=== PATIENT | male | born 1960 | race Caucasian/White ===

== ENCOUNTER 2023-03-20 02:17 | Outpatient (CLI) | payer OTHER, SELFPAY ==
--- NOTE | 2023-03-20 09:30 | DI.RAD_ITS ---
Exam(s) XR KNEE RT 4V AP,LAT,ARMANDO,PAT EXAM: XR KNEE RT 4V AP,LAT,ARMANDO,PAT CLINICAL HISTORY: ENCOUNTER FOR DISABILITY DETERMINATION, Z02.71; RT KNEE PAIN. TECHNIQUE: 2D digital imaging was performed. COMPARISON: No exams were available for comparison FINDINGS: Four views: There is a lateral fixation plate along the proximal tibia as well as 2 additional lateral to medial screws in the tibial plateau. No hardware loosening and no radiographic evidence of osteomyelitis. No significant loss of height of the tibial plateau evident. There is significant narrowing of the medial compartment of the right knee, almost [id number] as se en on the weight-bearing view. Lesser degenerative changes evident in the lateral compartment. IMPRESSION: Orthopedic hardware. Degenerative changes in the knee joint, most evident in the medial compartment. DATA REPOSITORY: RADIATION DOSE DELIVERED:
== END 2023-03-20 02:37 ==
PROVIDERS: Visit Provider Pediatrics Pediatric Rheumatology
DX: Z02.71 Encounter for disability determination (principal); Z96.651 Presence of right artificial knee joint; M17.11 Unilateral primary osteoarthritis, right knee
CPT/HCPCS: 73564

== ENCOUNTER 2023-10-17 11:03 | Emergency (ER) | payer MEDICARE, SELFPAY ==
[2023-10-17] VITALS (103 sets, daily range): BP systolic 99–195; BP diastolic 42–133; PULSE 64–106; RESP 0–37; TEMP 35.9; O2SAT 69–100
--- NOTE | 2023-10-17 11:00 | RT.EKG_ITS ---
APPROVED REPORT Exam: Resting ECG Reason for Exam: shortness of breath Patient Location: E HR:98 bpm ECG Measurements Heart Rate 98 AXIS NV 134 P 71 QRSd 87 QRS 66 QT 342 T -42 QTc 439 Conclusion Sinus rhythm...normal P axis, V-rate 60- 99 Probable left atrial enlargement...P >50mS, <-0.10mV V1 Low voltage, precordial leads...precordial leads <1.0mV Consider anteroseptal infarct...Q >30mS, dimin R, V1-V2
--- NOTE | 2023-10-17 11:19 | ED.GENADUL_ITS ---
HPI General Mode of arrival: EMS . Date/Time Provider Initiated Documentation: 10/17/23 11:08 . Information obtained by: patient and EMS . History of Present Illness 63 year old M presents to the emergency department with the chief complaint of shortness of breath, described as moderate, Patient started experiencing this day(s) (2) and it has been constant. No relieving factors improve symptom(s), No exacerbating factors reported . Patient notes denies fever/chills. Patient did receive the following treatments prior to arrival, none Related Data Home Medications Medication Instructions Recorded Confirmed acetaminophen 325 mg tablet 325 mg PO Q4H PRN 06/11/23 10/17/23 ibuprofen 200 mg tablet 200 mg PO Q6H PRN 06/11/23 10/17/23 Allergies Allergy/AdvReac Type Severity Reaction Status Date / Time No Known Allergies Allergy Verified 10/17/23 11:07 General Stated Complaint: GenMedical DOMINICK: 2 Review of Systems All systems reviewed & are unremarkable except as noted in HPI and below Constitutional Constitutional: Denies chills and Denies fever(s) Cardiovascular Cardiovascular: Denies chest pain and Reports dyspnea Respiratory Respiratory: Denies cough and Reports dyspnea Gastrointestinal Gastrointestinal: Denies abdominal pain, Denies nausea and Denies vomiting Musculoskeletal Musculoskeletal: Denies joint swelling Exam Const Orientation: alert HENMT Head: normal to inspection Ears: external ears normal General nose exam: external nose normal Mouth: moist mucous membranes Eyes General: appearance normal, both eyes and all related structures Neck Neck: normal visual inspection Resp Auscultation: wheezes Cardio Rate: regular rate Heart Sounds: no murmurs GI Palpation: nontender Skin General skin exam: no rashes or lesions noted Neuro General: patient alert Extrem General: capillary refill normal Course Vital Signs Vital signs: Vital Signs Temperature 35.9 C L 10/17/23 11:08 Pulse 97 H 10/17/23 11:08 Respiratory Rate 25 H 10/17/23 11:08 Blood Pressure 165/113 H 10/17/23 11:08 Temperature 35.9 C L 10/17/23 11:08 Temperature Source Temporal Artery Scan 10/17/23 11:08 Pulse 97 H 10/17/23 11:08 Respiratory Rate 25 H 10/17/23 11:08 Blood Pressure 165/113 H 10/17/23 11:08 Blood Pressure Position Sitting 10/17/23 11:08 Oxygen Delivery Method Non-Rebreather 10/17/23 11:08 Pain Level 0 10/17/23 11:08 Lab/Test Results Lab/Test Results: 10/17/23 11:01 Blood Blood Culture - Pending 10/17/23 11:01 Blood Blood Culture - Pending Medical Decision Making 63 yo male with no chronic medical problems though he doesn't see a provider routinely, is a smoker, who comes in with ems with shortness of breath. He apparently hasn't been moving around his house well the last few months and has stayed in his bed. EMS was called today and when they arrived they said his house was unkempt, and he was having severe respiratory distress. He was noted to be in the 70's on room air. They placed in on cpap and brought him here. Pt is only able to answer 1 word sentences though does state he feels improved with the cpap. He has pitting edema of both legs, wheezing diffusely in both lung nielsen. He denies chest pain. Suspect he has multiple untreated chronic medical problems and could be having both a copd and chf exacerbation. Will obtain ekg/troponin, cbc, cmp, fluvid, portable chest xray and give duoneb, solumedrol and 20mg iv lasix and reassess. Unclear how his renal function is, if it is adequate and no clear cause for his symptoms on the xray will consider cta of his chest. pt is feeling improved, speaking in 4-5 word sentences. HE does state he has felt weak and short of breath with exertion the last few months which has limited his mobility. HE used to smoke tobacco and currently smokes marijuana, does drink daily as well. labs show elevated probnp and minimally elevated troponin consistent with chf, xray shows large left pleural effusion and possible mass radiology recommends ct, will proceed with cta of the chest and ct abdomen/pelvis to evaluate for pe, mass, and potential ascites. pt trialed off cpap on high flow, maintained oxygen saturations above 90% but his respriratory rate did start increasing so was placed on bipap. CTA shows bilateral effusions and right lower lobe infiltrate, can't exclude PE per Dr. Chua. abd/pelvis ct shows evidence of anasarca with asictes, noted gas in the bladder with staghorn calculus and air, concern for infection vs air introduced from the bolden. Discussed case with Dr. Saunders who requests urology consult to determine if any acute interventions for the air/staghorn calculus is needed. Will hold anticoagulation until it is determined he needs an acute procedure Differential Diagnosis Differential Diagnosis: chf, copd, pneumonia Imaging Data Radiologic Study: Attestation: I personally reviewed and interpreted this imaging study as follows: Imaging: X-Ray Radiologist's impression: left pleural effusion, possible lung mass Radiologic Study #2: Attestation: I personally reviewed and interpreted this imaging study as follows: Imaging: CT Scan Radiologist's impression: Patient Name: Samuel Delacruz Unit #: [id number] Loc: ER Ordering Provider: Gus Baron M.D. Status: PRE ER Primary Care Provider: Unknown,Unknown Date of Exam: 10/17/23 Sex: M : 1960 Age: 63 Exam(s) a CT:CT chest PE abd & pelvis w Exam(s) CT CHEST PE ABD PELVIS W EXAM: CT CHEST PE ABD PELVIS W CLINICAL HISTORY: dyspnea, ?lung mass, ?ascites. TECHNIQUE: Imaging Protocol: Axial CT angiography was performed with multi- slice acquisition and multi-planar and/or 3D reconstructions. CONTRAST MATERIAL: Intravenous: Omnipaque 350 Contrast volume:100 ml Oral: None COMPARISON: CR XR PORTABLE CHEST AP from 10/17/2023 FINDINGS: CHEST: PULMONARY ARTERIES: There are no intra-arterial filling defects in the left lung to suggest the presence of acute pulmonary emboli. In the opposite-right lung there is a partially occlusive filling defect in the right lower lobe pulmonary artery consistent with embolus. LUNGS: There are prominent bilateral pleural effusions, left larger than right appearing partially loculated. There is significant volume loss in both lungs lower lobes. There is ground-glass infiltrate throughout the remaining aerated left upper lobe. Aerated right upper lobe and right middle lobe a relatively unremarkable but there is some infiltrate in the remaining on collapse part of the right lower lobe.. There are no pleural effusions. MEDIASTINUM: There is no hilar nor mediastinal adenopathy. Visualized thyroid unremarkable. CARDIAC: There is cardiomegaly. No pericardial effusion.Ventricular ratio is 1/1 and there is some reflux of contrast into the intrahepatic IVC and intrahepatic veins. Diameter of the thoracic aorta is normal. No obvious dissection. OSSEOUS: No rib fractures evident. No lytic lesions nor fractures in the vertebral bodies.. ABDOMEN: There is anasarca left side more than right side. There is also a moderate amount of ascites in the abdomen and pelvis. LIVER: Appears somewhat cirrhotic. Some fatty change. No discrete focal this. No dilated intrahepatic ducts. GALLBLADDER/BILIARY: Some fluid noted around the gallbladder although this may be early the ascites more so than intrinsic acute gallbladder pathology. CBD is not dilated. PANCREAS: No evidence of pancreatic mass nor dilatation of the pancreatic duct. SPLEEN: Spleen is not enlarged. There are no intrasplenic lesions. Splenic and portal veins are patent. ADRENALS: There are no significant adrenal masses. KIDNEYS:Right kidney unremarkable. There is gas in the left kidney the in the region of the calices. Also dense these in the left kidneys which are probably part of staghorn calculus staghorn calculus. There is no gas in urine. There the lateral cortex of the left kidney measuring 4 x 3 cm. This are no calculi nor hydronephrosis. No solid renal masses. ABDOMINAL AORTA: Calcified but not enlarged. LYMPH NODES: There is no retroperitoneal or para-aortic adenopathy. ABDOMINAL WALL/GI: No evidence of significant anterior abdominal wall hernia. No bowel obstruction. PELVIS: LYMPH NODES: There is no intrapelvic nor inguinal adenopathy. GI: No evidence of appendicitis.No evidence of sigmoid diverticulitis. URINARY BLADDER: There is a Bolden catheter in the urinary bladder and the bladder is collapsed around this Bolden. Some gas in the bladder noted. REPRODUCTIVE: Prostate gland is not enlarged. OSSEOUS: Pagetoid appearance of the left parveen pelvic bones. IMPRESSION: 1. Large bilateral pleural effusions, left larger than right with subjacent lung volume loss. Left upper lobe ground-glass infiltrate in the remaining aerated non collapsed left lung. 2. Infiltrate noted in the right lower lobe. 3. Subtle suggestion of pulmonary embolus in a right lower lobe vessel, nono cclusive. No pulmonary emboli evident in the left lung. 4. Anasarca and significant moderate-large amount of ascites in the abdomen and pelvis. 5. Densities in the left kidney collecting system probably represent part of staghorn calculus. There is also gas in the kidney around these findings. This may be related to infection versus gas introduced by the Bolden insertion into the urinary bladder. 6. Right kidney unremarkable. 7. Somewhat cirrhotic appearing liver. No splenomegaly. 8. 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 Lab Data Lab results reviewed: Yes I reviewed the patient's lab results. ECG Data Attestation: I personally reviewed and interpreted this ECG (s) as follows: Prior ECG tracings: not available for review Interpretation: sinus rate of 98 pr 134 no stemi Quality:SDOH Health Related Social Needs: No Data to Display PFSH All Active Problems (Updated 10/17/23 @ 15:56 by Gus Baron MD) Anasarca (Acute) Acute hypoxemic respiratory failure (Acute) Pleural effusion (Acute) Elevated LFTs (Acute) Medical History Anemia Squamous cell skin cancer ETOH abuse Surgical History (Updated 06/11/23 @ 16:02 by Ivett Rich RN) Status post open reduction and internal fixation (ORIF) of fracture Lower leg Right wrist Social History (Updated 05/24/23 @ 10:48 by Radha Nair) Smoking/Tobacco Use Status: Current, status unknown Smoking risk assessment performed?: Yes Alcohol Intake: current Substance use type: marijuana Adopted: No Caregiver/Support person: No Foster care: No Housing: other Details: room in home Communication Needs: None Pets and animals: No Discharge Plan Disposition Condition: Poor Discharge Details Chief Complaint: GenMedical Clinical Impression: Elevated LFTs, Pleural effusion, Acute hypoxemic respiratory failure, Anasarca Primary Care Provider: Unknown,Unknown ED Provider: Gus Baron Home Meds and New Rx's Prescriptions: No Action acetaminophen 325 mg tablet 325 mg PO Q4H PRN ibuprofen 200 mg tablet 200 mg PO Q6H PRN
[2023-10-17 11:34] LABS: Abs Immature Grans 0.15 10^3/uL (0.0-0.06); Absolute Basophil Count 0.06 10^3/uL (0.0-0.2); Absolute Lymphocyte Count 1.23 10^3/uL (1.2-3.4); Absolute Monocyte Count 1.18 10^3/uL (0.1-0.8); BE (Venous) -3 mmol/L (-2-3); Basophils % 0.5; HCO3 (Venous) 25 mmol/L (23-28); HCT 47.6 % (40.0-50.0); HGB 13.8 g/dL (13.5-17.5); Immature Grans % 1.3; MCH 23.7 pg (27.0-33.0); MCV 82 fL (80-95); MPV 9.1 fL (8.0-11.0); Monocytes % 10.5; Neutrophils % 76.7; Nucleated RBC 1.1 % (0.0-0.3); O2 Sat (Venous) 30 %; Platelet Count 384 10^3/uL (130-400); RBC 5.82 10^6/uL (4.36-5.78); RDW 19.9 % (11.8-14.1); TCO2 (Venous) 25 mmol/L (24-29); pO2 (Venous) 26 mmHg
[2023-10-17 11:35] LABS: Absolute Neutrophil Count 8.59 10^3/uL (1.2-6.7)
[2023-10-17 11:36] LABS: pCO2 (Venous) 70 mmHg (41-51); pH (Venous) 7.17 (7.31-7.41)
[2023-10-17] MEDS: Albuterol/Ipratropium 3 ML UPD VIAL UPD ×2 (11:43)
[2023-10-17] MEDS: Furosemide 20 MG/2 ML VIAL IVP ×3 (11:44→17:51)
[2023-10-17] MEDS: methylPREDNISolone SUCC 125 MG VIAL IVP (11:44)
--- NOTE | 2023-10-17 11:45 | DI.RAD_ITS ---
Exam(s) XR PORTABLE CHEST AP EXAM: XR PORTABLE CHEST AP CLINICAL HISTORY: shortness of breath. TECHNIQUE: 2D digital imaging was performed. COMPARISON: No exams were available for comparison FINDINGS: Single AP portable view. Heart size upper normal There is almost complete opacification left hemithorax. Probably related to large pleural effusion, infiltrate. There is a suggestion of a mass in the left suprahilar region IMPRESSION: Large left pleural effusion with possible mass. Chest CT scan recommended DATA REPOSITORY: RADIATION DOSE DELIVERED:
[2023-10-17 11:48] LABS: PTT Activated 27.5 sec (23.6-32.8); Prothrombin Time 14.1 sec (9.1-11.1)
[2023-10-17 11:53] LABS: INR 1.4 (0.9-1.1)
[2023-10-17 12:00] LABS: ETHANOL BLOOD < 3.0 mg/dL (<10)
[2023-10-17 12:01] LABS: Troponin I 66 ng/L (< or =60)
[2023-10-17 12:05] LABS: ALT 417 U/L (16-63); Alkaline Phosphatase 217 U/L (46-116); Anion Gap 10.9 mmol/L (3-11); BUN 33 mg/dL (7-18); Bilirubin, Total 1.3 mg/dL (0.2-1.0); CO2 25.1 mmol/L (21.0-32.0); CREATININE 1.7 mg/dL (0.70-1.30); Calcium 8.6 mg/dL (8.5-10.1); Chloride 102 mmol/L (98-107); Estimated GFR 44.74 (mL/min/1.73m2); Glucose 103 mg/dL (74-106); Magnesium 2.3 mg/dL (1.8-2.4); Potassium 5.4 mmol/L (3.5-5.1); Sodium 138 mmol/L (136-145); Total Protein 9.2 g/dL (6.4-8.2)
[2023-10-17 12:11] LABS: Procalcitonin 0.2 ng/mL
[2023-10-17 12:15] LABS: COVID-19 PCR Negative (Negative); Influenza A PCR Negative (Negative); Influenza B PCR Negative (Negative); RSV PCR Negative (Negative)
[2023-10-17 12:17] LABS: Source Nasopharynx
[2023-10-17 12:31] LABS: AST 990 U/L (15-37)
[2023-10-17] MEDS: Omnipaque 350 MG/ML 100 ML BTL IJ (14:11)
[2023-10-17] MEDS: Normal Saline - Diluent 50 ML VIAL IJ (14:13)
[2023-10-17 14:14] LABS: Troponin I 58 ng/L (< or =60)
--- NOTE | 2023-10-17 14:25 | DI.CT_ITS ---
Exam(s) CT CHEST PE ABD PELVIS W EXAM: CT CHEST PE ABD PELVIS W CLINICAL HISTORY: dyspnea, ?lung mass, ?ascites. TECHNIQUE: Imaging Protocol: Axial CT angiography was performed with multi-slice acquisition and m ulti-planar and/or 3D reconstructions. CONTRAST MATERIAL: Intravenous: Omnipaque 350 Contrast volume:100 ml Oral: None COMPARISON: CR XR PORTABLE CHEST AP from 10/17/2023 FINDINGS: CHEST: PULMONARY ARTERIES: There are no intra-arterial filling defects in the left lung to suggest the prese nce of acute pulmonary emboli. In the opposite-right lung there is a partially occlusive filling defect in the right lower lobe pulm onary artery consistent with embolus. LUNGS: There are prominent bilateral pleural effusions, left larger than right appearing partially lo culated. There is significant volume loss in both lungs lower lobes. There is ground-glass infiltra te throughout the remaining aerated left upper lobe. Aerated right upper lobe and right middle lobe a relatively unremarkable but there is some infiltrate in the remaining on collapse part of the right lower lobe.. There are no pleural effusions. MEDIASTINUM: There is no hilar nor mediastinal adenopathy. Visualized thyroid unremarkable. CARDIAC: There is cardiomegaly. No pericardial effusion.Ventricular ratio is 1/1 and there is some r eflux of contrast into the intrahepatic IVC and intrahepatic veins. Diameter of the thoracic aorta i s normal. No obvious dissection. OSSEOUS: No rib fractures evident. No lytic lesions nor fractures in the vertebral bodies.. ABDOMEN: There is anasarca left side more than right side. There is also a moderate amount of ascites in the abdomen and pelvis. LIVER: Appears somewhat cirrhotic. Some fatty change. No discrete focal this. No dilated intrahepa tic ducts. GALLBLADDER/BILIARY: Some fluid noted around the gallbladder although this may be early the ascites m ore so than intrinsic acute gallbladder pathology. CBD is not dilated. PANCREAS: No evidence of pancreatic mass nor dilatation of the pancreatic duct. SPLEEN: Spleen is not enlarged. There are no intrasplenic lesions. Splenic and portal veins are torrez nt. ADRENALS: There are no significant adrenal masses. KIDNEYS:Right kidney unremarkable. There is gas in the left kidney the in the region of the calices. Also dense these in the left kidneys which are probably part of staghorn calculus staghorn calculus . There is no gas in urine. There the lateral cortex of the left kidney measuring 4 x 3 cm. This a re no calculi nor hydronephrosis. No solid renal masses. ABDOMINAL AORTA: Calcified but not enlarged. LYMPH NODES: There is no retroperitoneal or para-aortic adenopathy. ABDOMINAL WALL/GI: No evidence of significant anterior abdominal wall hernia. No bowel obstruction. PELVIS: LYMPH NODES: There is no intrapelvic nor inguinal adenopathy. GI: No evidence of appendicitis.No evidence of sigmoid diverticulitis. URINARY BLADDER: There is a Power catheter in the urinary bladder and the bladder is collapsed around this Power. Some gas in the bladder noted. REPRODUCTIVE: Prostate gland is not enlarged. OSSEOUS: Pagetoid appearance of the left parveen pelvic bones. IMPRESSION: 1. Large bilateral pleural effusions, left larger than right with subjacent lung volume loss. Left u pper lobe ground-glass infiltrate in the remaining aerated non collapsed left lung. 2. Infiltrate noted in the right lower lobe. 3. Subtle suggestion of pulmonary embolus in a right lower lobe vessel, nonocclusive. No pulmonary e mboli evident in the left lung. 4. Anasarca and significant moderate-large amount of ascites in the abdomen and pelvis. 5. Densities in the left kidney collecting system probably represent part of staghorn calculus. Ther e is also gas in the kidney around these findings. This may be related to infection versus gas intro duced by the Power insertion into the urinary bladder. 6. Right kidney unremarkable. 7. Somewhat cirrhotic appearing liver. No splenomegaly. 8. 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 Called by myself to ER physician. RADIATION DOSE DELIVERED: 2,585.46mGy.cm Total DLP DATA REPOSITORY: All CT scans at this facility are submitted to the National Radiology Data Registry (NRDR) Dose Index Registry (DIR) with the [employer] (A[employer]). RADIATION OPTIMIZATION: All CT scans at this facility use at least one of these dose optimization te chniques: automated exposure control; mA and/or kV adjustment per patient size (includes targeted exa ms where dose is matched to clinical indication); or iterative reconstruction.
[2023-10-17] MEDS: AZITHROMYCIN 500 MG in Normal Saline 250 ML 250 MG IVPB (15:45)
[2023-10-17 16:03] LABS: Bilirubin Negative (Negative); Blood Moderate (Negative); Clarity Cloudy (Clear); Glucose Negative (Negative); Ketones Negative (Negative); Leukocyte Esterase Moderate (Negative); Nitrite Negative (Negative); Urobilinogen 0.2 mg/dL (Up to 0.2)
[2023-10-17 16:15] LABS: Acetaminophen < 2 ug/mL (10-30)
[2023-10-17 16:18] LABS: Bacteria Many HPF (Negative); Crystals Negative HPF (Negative); Epithelial Cells Rare HPF (Negative); Mucus Moderate (Negative); Other Cells Rare Transitional (Negative); RBC 20-50 HPF (0-2); WBC 20-50 HPF (0-5)
[2023-10-17 16:19] LABS: C & S Indicated? Yes; Casts 0-2 Hyaline LPF (Negative)
--- NOTE | 2023-10-17 16:45 | ED.PROG_ITS ---
Date of service: 10/17/23 Time of Service: 16:45 Medical Decision Making I received signout on this 63-year-old male found to have anasarca and acute respiratory failure with hypoxia and bilateral pleural effusions concerning for acute CHF. He was also found to have a staghorn calculus and some associated gas in the right kidney concerning for the possibility of infection versus gas introduced by Power. Urinalysis positive for leuk esterase and bacteriuria but nitrite negative. He will require hospitalization as he is on rescue BiPAP. Hospitalist has requested that we [place] [facility] [place] speak with [place] as we do not currently have urology coverage. Question is will patient require urological intervention and as result transfer. Power catheter was placed. Patient had received methylprednisolone and nebulized ipratropium albuterol. 5:30 PM I spoke with Dr. Calderon from the hospitalist team at [facility] who agreed to accept the patient for hospitalization. We are also on the phone with Dr. David from urology who did not feel that the patient required emergent urological procedures. Also on the call was Dr. Crews from critical care. Repeated blood gas which showed that his pH was 7.18 and pCO2 was 68. He is pulling good tidal volumes. At bedside with respiratory therapist we increased his IPAP to 20 and his EPAP remained at 6. He is down to 35% FiO2. I placed on a CIWA protocol. He was mildly hyperkalemic for which I treated him with calcium gluconate. Will treat with 20 mg more IV furosemide. Will repeat a blood gas at 6:30 PM. Will wait for bed placement to call prior to arranging product safety head level transfer. Breaker Off advised holding off on anticoagulation given possible need for procedures moving forward. Urology agreed that the patient did not require any acute urological intervention. Patient has an 18- gauge in his right AC. Will obtain a second line. His second venous gas showed persistent acidemia with pH of 7.18. pCO2 only slightly improved at 68 mmHg. 8:25 PM Late charting due to patient care. After the patient was accepted to [facility] [place], product safety head with [facility], came to transport the patient. Patient now has 2 IVs. He was not comfortable transfer the patient as an ambulance as he was concerned that he was fairly BiPAP and would require emergent intubation. Patient is certainly in a precarious position. On the one hand he is pulling good tidal volumes and response to stimuli and answers with his name. He is certainly would not be easy to intubate or maintain on the ventilator. I also have concerns about his ability to be easily extubated. I had the patient's nurse Kyle stand at bedside. We engaged with the patient and he had his eyes open was responding to questions and continue to pull good tidal volumes. I repeated the venous blood gas and his hypercarbia and acidemia were both improving. He has been accepted by [facility] helicopter as unfortunately there is not a product safety head crew to take him. Will sign patient out at bedside to the [facility] team. 9:30 PM As patient was being transitioned over to monitors with the [facility] team he had an apneic episode. The [facility] team increased his FiO2 to 100% which caused him to become acutely agitated and confused. His eyes were open. He was intermitten tly able to follow commands. Critical care team did not feel comfortable taking the patient in the helicopter given his current state. Critical care team did not feel comfortable giving the patient lorazepam for agitation or ketamine and preferred instead to intubate the patient. In conjunction with medic Dom Chang from the [facility] team patient was intubated. Dom Chang performed the intubation however I was at his shoulder during the entire procedure. A timeout was completed prior to RSI which was accomplished on a single first-pass success using glide scope following etomidate and rocuronium given concern for mild hyperkalemia. Patient was started on a propofol drip. An OG tube was placed and the chest x-ray along with end-tidal confirmed tube placement. Respiratory therapist was at bedside. I updated the hospitalist at [facility] concerning the patient's intubated status. Patient received 4 mg of ondansetron prior to transfer. 10:38 PM ET tube read as in satisfactory position on preliminary portable chest x-ray read. [ ] Quality:SDOH Health Related Social Needs: No Data to Display Procedures Intubation Time out performed: Yes sedative: Etomidate Mg Given: 40 paralytic: Rocuronium Mg Given: 150 Laryngoscope: fiberoptic video scope (glide scope) ET Tube Size: 7.5 ET Tube Uncuffed: No Tube Secured Depth (cm): 23 Tube Secured Location: teeth Tube Placement Confirmation: visualized tube passing through cords, equal breath sounds bilaterally and confirmation by capnometry Patient Tolerated Procedure: well and no complications Intubation Complications: none Additional Comments: Intubation accomplished by critical care medic from [facility]. I was there through the entire procedure at the head of the bed supervising this intubation. Tube & OGT confirmed by CXR. Critical Care Time Critical Care Time Critical Care Time: Yes Total Critical Care Time: 45 Attestation: Bedside assessment, evaluation of labs, and speaking with consultants Sign Out Sign Out Data: Sign Out Comment: presented with acute hypoxic respiratory failure and diffuse edema, cta chest with bilateral pleural effusions and right lower lobe infiltrate, ?PE in the right lower lobe. ct abd/pelvis with left staghorn calculus and air, has put out over 600cc urine since 40mg IV lasix. Attempted admission here but Dr. Saunders requested at least a urology consult to determine if acute intervention required for the left staghorn calculus with air. Last updated by Gus Baron MD at 10/17/23 16:41 Discharge Plan Disposition Patient Disposition: Transfer-Acute Inpatient Care Specific Acute Inpt Facility: [facility] Discharge Details Clinical Impression: Elevated LFTs, Pleural effusion, Acute hypoxemic respiratory failure, Anasarca Primary Care Provider: Unknown,Unknown ED Provider: Altaf Barreto Home Meds and New Rx's Prescriptions: No Action acetaminophen 325 mg tablet 325 mg PO Q4H PRN ibuprofen 200 mg tablet 200 mg PO Q6H PRN Discharge Data Discharge Date/Time-TO BE ENTERED AT DEPARTURE: 10/17/23 21:50
[2023-10-17] MEDS: cefTRIAXone 2 GM/50 ML BAG IVPB (16:56)
[2023-10-17 17:28] LABS: BE (Venous) -3 mmol/L (-2-3); HCO3 (Venous) 25 mmol/L (23-28); O2 Sat (Venous) 38 %; TCO2 (Venous) 25 mmol/L (24-29); pO2 (Venous) 30 mmHg
[2023-10-17 17:30] LABS: pH (Venous) 7.18 (7.31-7.41)
[2023-10-17 17:31] LABS: pCO2 (Venous) 68 mmHg (41-51)
[2023-10-17 17:51] LABS: Anion Gap 8.6 mmol/L (3-11); BUN 36 mg/dL (7-18); CO2 27.4 mmol/L (21.0-32.0); CREATININE 1.8 mg/dL (0.70-1.30); Calcium 8.2 mg/dL (8.5-10.1); Chloride 103 mmol/L (98-107); Estimated GFR 41.77 (mL/min/1.73m2); Glucose 128 mg/dL (74-106); Potassium 5.3 mmol/L (3.5-5.1); Sodium 139 mmol/L (136-145)
[2023-10-17] MEDS: Calcium Gluconate 4.65 MEQ/10 ML VIAL 9.3 MG IVP (17:51)
[2023-10-17 18:08] LABS: BE (Venous) -1 mmol/L (-2-3); HCO3 (Venous) 27 mmol/L (23-28); O2 Sat (Venous) 26 %; TCO2 (Venous) 27 mmol/L (24-29); pO2 (Venous) 24 mmHg
[2023-10-17 18:10] LABS: pCO2 (Venous) 72 mmHg (41-51); pH (Venous) 7.19 (7.31-7.41)
[2023-10-17 19:37] LABS: BE (Venous) 0 mmol/L (-2-3); HCO3 (Venous) 28 mmol/L (23-28); O2 Sat (Venous) 24 %; TCO2 (Venous) 27 mmol/L (24-29); pH (Venous) 7.24 (7.31-7.41); pO2 (Venous) 22 mmHg
[2023-10-17 19:38] LABS: pCO2 (Venous) 65 mmHg (41-51)
--- NOTE | 2023-10-17 21:15 | DI.RAD_ITS ---
Exam(s) XR PORTABLE CHEST AP EXAM: XR PORTABLE CHEST AP CLINICAL HISTORY: Confirm tube. TECHNIQUE: 2D digital imaging was performed. COMPARISON: CT CT CHEST PE ABD PELVIS W from 10/17/2023 CR XR PORTABLE CHEST AP from 10/17/2023 FINDINGS: Single AP portable view. Patient is now intubated. ET tube is in satisfactory position. NG tube is noted but distal aspect o f the NG tube is beyond the field of view of this portable chest x-ray. Heart size unchanged. Some shift of midline structures towards the left side noted due to left-sided lung volume loss. Large left pleural effusion is again noted with partial left lung collapse. Smal ler right pleural effusion noted. No improvement from earlier same date. IMPRESSION: ET tube in satisfactory position. No improvement in the appearance of the lung nielsen. DATA REPOSITORY: RADIATION DOSE DELIVERED:
[2023-10-17] MEDS: Ondansetron 4 MG/2 ML VIAL (21:58)
--- NOTE | 2023-10-17 22:02 | DI.VRAD_ITS ---
PROCEDURE INFORMATION: Exam: XR Chest Exam date and time: 10/17/2023 9:38 PM Age: 63 years old Clinical indication: Other: Confirm tube TECHNIQUE: Imaging protocol: Radiologic exam of the chest. Views: 1 view. COMPARISON: CT CHEST PE ABD PELVIS W 10/17/2023 2:10 PM FINDINGS: Tubes, catheters and devices: ET tube is in satisfactory position. Tip of the feeding tube is beyond the [id number]. The side hole of the feeding tube is in the distal esophagus. Lungs: There are bilateral pleural effusions with lower lobe consolidation/collapse, larger on the left side. Pleural spaces: See Lungs finding. Heart/Mediastinum: Shift of the mediastinum to the left consistent with volume loss. Bones/joints: Degenerative disease of the thoracic spine with curvature convex to the right. IMPRESSION: 1. ET tube is in satisfactory position. 2. Tip of the feeding tube is beyond the field of view. The side hole of the feeding tube is in the distal esophagus. 3. Bilateral pleural effusions with lower lobe atelectasis. Dictated and Authenticated by: Francisco Armstrong MD. Ordering:ÁNGEL Solitario MD
== END 2023-10-17 21:50 | disposition short-term general hospital (02) ==
PROVIDERS: Emergency Medicine; Emergency Provider Emergency Medicine
DX: J96.01 Acute respiratory failure with hypoxia (principal); J90 Pleural effusion, not elsewhere classified; R60.1 Generalized edema; E87.5 Hyperkalemia; R94.5 Abnormal results of liver function studies; N20.0 Calculus of kidney; Z11.52 Encounter for screening for COVID-19
CPT/HCPCS: 00123; 31500; 36415; 51702; 71275; 74177; 80048; 80053; 82805; 84145; 87040; 87077; 87637; 93005; 96365; 96368; 96375; 96376; 99291; 71045; 80320; 80329; 81003; 81015; 83735; 83880; 84443; 84484; 85025; 85610; 85730; 87086; 87186; 93010; J0456; J0612; J0696; J1941; J2405; J2930; J3490; J7620

== ENCOUNTER 2024-04-13 16:47 | Inpatient (IN) | payer MEDICARE, SELFPAY ==
[2024-04-13] VITALS (77 sets, daily range): BP systolic 74–158; BP diastolic 34–120; PULSE 80–157; RESP 15–36; TEMP 36.8; O2SAT 93–100
--- NOTE | 2024-04-13 16:45 | RT.EKG_ITS ---
APPROVED REPORT Exam: Resting ECG Reason for Exam: tachycardia Patient Location: E HR:127 bpm ECG Measurements Heart Rate 127 AXIS UT 108 P 153 QRSd 81 QRS 33 QT 273 T 147 QTc 397 Conclusion Sinus tachycardia with irregular rate...V-rate 119-170, variation>10% Low voltage, precordial leads...precordial leads <1.0mV Abnormal T, consider ischemia, lateral leads...T <-0.20mV, I aVL V5 V6 sinus tachycardia, normal axis, normal intervals, non ischemic
[2024-04-13 17:19] LABS: BE (Venous) -6 mmol/L (-2-3); HCO3 (Venous) 21 mmol/L (23-28); O2 Sat (Venous) 40 %; TCO2 (Venous) 19 mmol/L (24-29); pCO2 (Venous) 44 mmHg (41-51); pH (Venous) 7.29 (7.31-7.41); pO2 (Venous) 29 mmHg
[2024-04-13 17:23] LABS: Abs Immature Grans 0.05 10^3/uL (0.0-0.06); Absolute Basophil Count 0.06 10^3/uL (0.0-0.2); Absolute Eosinophil Count 0.03 10^3/uL (0.0-0.7); Absolute Lymphocyte Count 1.59 10^3/uL (1.2-3.4); Absolute Neutrophil Count 6.38 10^3/uL (1.2-6.7); Basophils % 0.7 %; Eosinophils % 0.3 %; HCT 48.8 % (40.0-50.0); HGB 15.1 g/dL (13.5-17.5); Immature Grans % 0.6 %; Lactate 3.6 mmol/L (0.6-1.4); Lymphocytes % 17.8 %; MCH 30.4 pg (27.0-33.0); MCHC 30.9 % (32.0-36.0); MCV 98 fL (80-95); MPV 8.9 fL (8.0-11.0); Neutrophils % 71.6 %; Nucleated RBC 0.6 % (0.0-0.3); Platelet Count 312 10^3/uL (130-400); RBC 4.97 10^6/uL (4.36-5.78); RDW 16.8 % (11.8-14.1); RDW-SD 58.2 fL; WBC 8.91 10^3/uL (4.4-10.8)
--- NOTE | 2024-04-13 17:30 | DI.RAD_ITS ---
Exam(s) XR PORTABLE CHEST AP EXAM: XR PORTABLE CHEST AP CLINICAL HISTORY: dyspnea. TECHNIQUE: 2D digital imaging was performed. COMPARISON: CR XR PORTABLE CHEST AP from 10/17/2023 CR,XR XR PORTABLE CHEST AP from 10/17/[address] CHEST/ABD/PEL WO from 04/13/2024 FINDINGS: Single AP portable view. Patient is rotated towards the left. Cardiomegaly again noted. Mediastinum unchanged. Moderate-size left pleural effusion is again noted. The size of this left pleural effusion is slight ly smaller than 10/17/2023. There is also some infiltrate in left lower lobe. Mild increased markin gs noted in the right lung base. No obvious right pleural effusion. No fractures. No pneumothorax. IMPRESSION: Cardiomegaly. Persistent or recurrent left pleural effusion. This has slightly decreased in size fr om 10/17/2023 but still is of significant size. Cannot exclude loculation of this left pleural effus ion. Some infiltrate also noted in left lower lobe. DATA REPOSITORY: RADIATION DOSE DELIVERED:
[2024-04-13 17:33] LABS: INR 1.5 (0.9-1.1); Prothrombin Time 14.3 sec (9.1-11.1)
[2024-04-13] MEDS: PIPERACILLIN/TAZO 3.375 GM in Normal Saline 50 ML IVPB (17:42)
[2024-04-13] MEDS: methylPREDNISolone SUCC 125 MG VIAL 80 MG IVP (17:44)
[2024-04-13] MEDS: Albuterol/Ipratropium 3 ML UPD VIAL (17:44)
[2024-04-13] MEDS: Albuterol 2.5 MG/3 ML INH SOLN VIAL UPD (17:44)
[2024-04-13 17:45] LABS: ALT 29 U/L (16-63); AST 42 U/L (15-37); Albumin 3.2 g/dL (3.4-5.0); Alkaline Phosphatase 184 U/L (46-116); Anion Gap 14.7 mmol/L (3-11); BUN 34 mg/dL (7-18); Bilirubin, Total 1.41 mg/dL (0.2-1.0); CO2 22.3 mmol/L (21.0-32.0); CREATININE 2.1 mg/dL (0.70-1.30); Calcium 8.4 mg/dL (8.5-10.1); Chloride 103 mmol/L (98-107); ETHANOL BLOOD 3.2 mg/dL (<10); Glucose 135 mg/dL (74-106); Lipase 20 U/L (16-77); NT-proBNP 21381 pg/mL (<300); Potassium 4.6 mmol/L (3.5-5.1); Sodium 140 mmol/L (136-145); Total Protein 8.3 g/dL (6.4-8.2); Troponin I < 50 ng/L (< or =60)
--- NOTE | 2024-04-13 17:45 | DI.CT_ITS ---
Exam(s) CT CHEST/ABD/PEL WO EXAM: CT CHEST/ABD/PEL WO CLINICAL HISTORY: dyspnea, groin pain/edema, cirrhosis. TECHNIQUE: Imaging Protocol: Axial computed tomography images with coronal and sagittal reformatted images were created and reviewed CONTRAST MATERIAL: Intravenous: Noncontrast Oral: no COMPARISON: CT CT CHEST PE ABD PELVIS W from 10/17/2023 FINDINGS: CHEST: Tracheobronchial tree: Patent. Pulmonary parenchyma: No dominant measurable mass. Dependent changes, left greater than right. On persistent ground-glass infiltrate left upper and left lower lobes. Pleura: Small right pleural effusion. Moderate left pleural effusion. Effusions are small when com pared with the previous exam. No pneumothorax. Mediastinum: Within normal limits. Aorta: Thoracic portion non-dilated. Pulmonary arteries: No visible emboli. Heart: Marked dilatation. No pericardial effusion. Coronary artery calcifications. Bones: Scoliosis and degenerative changes. No lytic or blastic lesions.No compression fractures. Thacker bacute fracture right 9th rib. Soft tissues: Body wall edema, improved from prior. ABDOMEN and PELVIS: Liver: Cirrhotic appearance. No measurable mass. Gallbladder and biliary tract: No evidence of stones or wall thickening. No biliary dilatation. Pancreas: Mild atrophy. No abnormal calcifications or inflammatory process. Spleen: Normal. Kidneys: Staghorn calculus on the left air again noted within left renal collecting system. No hydro nephrosis. No ureteral calculi. Appearance unchanged from prior. Mild left renal scarring. Stable cyst upper pole. No suspicious masses seen. Adrenal glands: No masses seen. Aorta: Abdominal portion non-dilated. Atherosclerotic changes. Lymph nodes: Within normal limits. Soft tissues: Marked subcutaneous edema, greater on the left. Portion of the left lateral abdominal wall is not included in field of view. Bladder: Power catheter decompresses bladder. Bowel: No obstruction or bowel wall thickening. Diverticulosis. No gross evidence of diverticuliti s cos somewhat difficult to evaluate due to ascites. Appendix partially obscured by ascites. No tenzin dence of appendicitis. Peritoneal cavity: Large amount of ascites, greater in the region of the pelvis which appears increas ed from prior exam. No focal abscess collection. No mesenteric inflammatory response. No free air. Bones: Scoliosis and degenerative changes. Changes of Paget's disease of the left hemipelvis. Reproductive organs: Within normal limits. IMPRESSION: Mild decreased size of bilateral pleural effusions. Persistent left lower lobe atelectasis and groun d-glass infiltrates. Marked cardiomegaly. Stable appearance of left kidney with multiple nonobstructing stones and air within the collecting sy stem. Large amount of ascites, somewhat increased from prior. Body wall edema again noted. Cirrhotic appearing liver. RADIATION DOSE DELIVERED: Total DLP DATA REPOSITORY: All CT scans at this facility are submitted to the National Radiology Data Registry (NRDR) Dose Index Registry (DIR) with the [employer] (A[employer]). RADIATION OPTIMIZATION: All CT scans at this facility use at least one of these dose optimization te chniques: automated exposure control; mA and/or kV adjustment per patient size (includes targeted exa ms where dose is matched to clinical indication); or iterative reconstruction.
[2024-04-13] MEDS: Furosemide 40 MG/4 ML VIAL IVP ×2 (17:52→19:27)
[2024-04-13 18:01] LABS: COVID-19 PCR Negative (Negative); Influenza A PCR Negative (Negative); Influenza B PCR Negative (Negative); RSV PCR Negative (Negative)
[2024-04-13 18:15] LABS: Source Nasopharynx
[2024-04-13 19:16] LABS: Bilirubin Negative (Negative); Blood Moderate (Negative); Clarity Cloudy (Clear); Glucose Negative (Negative); Ketones Negative (Negative); Leukocyte Esterase Moderate (Negative); Nitrite Negative (Negative); Urobilinogen 0.2 mg/dL (Up to 0.2); pH 5.5 (5-8)
[2024-04-13 19:24] LABS: Bacteria Many HPF (Negative); C & S Indicated? Yes; Casts Negative LPF (Negative); Crystals Negative HPF (Negative); Epithelial Cells Negative HPF (Negative); Mucus Negative (Negative); Other Cells Rare Renal (Negative); WBC >50 HPF (0-5)
--- NOTE | 2024-04-13 19:25 | DI.VRAD_ITS ---
PROCEDURE INFORMATION: Exam: XR Chest Exam date and time: 04/13/2024 5:43 PM Age: 64 years old Clinical indication: Shortness of breath TECHNIQUE: Imaging protocol: Radiologic exam of the chest. Views: 1 view. COMPARISON: XR PORTABLE CHEST AP 10/17/2023 9:38 PM FINDINGS: Lungs: No evidence of consolidation in the visualized lung. Pleural spaces: There is redemonstration of a left pleural effusion, which is at least moderate in size. A small right pleural effusion is noted. Heart/Mediastinum: The heart appears enlarged, however exact borders are not well evaluated due to adjacent pleural effusion. Bones/joints: Unremarkable. IMPRESSION: 1. Left greater than right pleural effusions noted. 2. No consolidation in the remaining lung nielsen visualized. Dictated and Authenticated by: Amada Patel MD. Ordering:GIL Bennett MD
[2024-04-13 20:33] LABS: Troponin I < 50 ng/L (< or =60)
--- NOTE | 2024-04-13 21:13 | DI.VRAD_ITS ---
PROCEDURE INFORMATION: Exam: CT Chest Without Contrast; Diagnostic Exam date and time: 04/13/2024 6:43 PM Age: 64 years old Clinical indication: Other: Dyspnea, groin pain/edema, cirrhosis TECHNIQUE: Imaging protocol: Diagnostic computed tomography of the chest without contrast. 3D rendering (Not supervised by radiologist): MIP and/or 3D reconstructed images were created by the technologist. COMPARISON: CT CHEST PE ABD PELVIS W 10/17/2023 2:10 PM FINDINGS: Thyroid: Normal-sized thyroid gland. Lungs: Dependent atelectasis, more prominent on the left. Pleural spaces: Large pleural effusion on the left. Small right-sided pleural effusion. Heart: Marked cardiomegaly with multichamber dilatation. Coronary arteries: Coronary artery calcification. Lymph nodes: No pathologically enlarged mediastinal or hilar lymph nodes. Vasculature: No thoracic aortic aneurysm. Bones/joints: Subacute fracture through the posterolateral aspect of the right 9th rib with bony callus formation but incomplete bony union. Spinal degenerative change with anterior osteophytes at multiple levels. Soft tissues: Extensive subcutaneous edema, significantly more prominent on the left. IMPRESSION: 1. Large pleural effusion on the left. Small pleural effusion on the right. 2. Subacute fracture through the posterolateral aspect of the right 9th rib with bony callus formation but incomplete bony union. 3. Marked cardiomegaly with multichamber dilatation. PROCEDURE INFORMATION: Exam: CT Abdomen And Pelvis Without Contrast Exam date and time: 04/13/2024 6:43 PM Age: 64 years old Clinical indication: Other: Dyspnea, groin pain/edema, cirrhosis TECHNIQUE: Imaging protocol: Computed tomography of the abdomen and pelvis without contrast. 3D rendering (Not supervised by radiologist): MIP and/or 3D reconstructed images were created by the technologist. COMPARISON: CT CHEST PE ABD PELVIS W 10/17/2023 2:10 PM FINDINGS: Liver: Relative hypertrophy of the lateral left hepatic segment and caudate lobe. Known history of cirrhosis by report. Gallbladder and biliary ducts: Gallbladder partially obscured by artifact but moderately distended. Apparent gallbladder wall thickening versus artifact. No calcified gallstones or biliary dilatation. Pancreas: Moderate atrophy of the pancreas. Pancreatic insufficiency. Spleen: Spleen partially obscured by artifact but grossly unremarkable, as seen. Adrenal glands: Normal appearing adrenal glands. Kidneys and ureters: Grossly normal-appearing unenhanced right kidney. Relative atrophy of the left kidney. 3.5 cm left renal cyst. Large nonobstructing left renal calculi with an 18 mm x 24 mm x 23 mm staghorn calculus in the interpolar region and a 7 mm x 7 mm x 10 mm stone in the left renal pelvis at the ureteropelvic junction but no hydronephrosis. Abnormal foci of gas scattered through the left renal calyces. No ureterectasis. No obstructing ureteral stones. Stomach and bowel: No oral contrast. Stomach partially decompressed. No dilated small bowel loops to suggest obstruction. Colon partially obscured by ascites. Scattered colonic diverticula. No evidence of diverticulitis or colitis. Colon largely well evacuated of formed fecal material. Appendix: Appendix partially obscured but normal in caliber and appearance through its visualized portion. Intraperitoneal space: Large amount of ascites. No free air. Vasculature: Normal caliber abdominal aorta. Lymph nodes: No pathologically enlarged mesenteric, retroperitoneal, or pelvic sidewall lymph nodes. Urinary bladder: Urinary bladder completely collapsed around a Power catheter. Reproductive: Normal-appearing prostate gland and seminal vesicles. Bones/joints: Enlarged left hemipelvis with cortical and trabecular thickening characteristic of Paget's disease. No acute fracture seen among the bones of the abdomen or pelvis. Spinal degenerative change with discogenic degeneration at several levels. Severe facet arthrosis on the left at the lumbosacral junction. Soft tissues: Extensive subcutaneous edema. Left lateral abdominal wall partially excluded from view. IMPRESSION: 1. Atrophic left kidney with multiple large nonobstructing stones and scattered foci of soft tissue gas collecting system, as described. This finding is of uncertain etiology but is also seen on the comparison exam from October 17, 2023. Although the appearance is relatively stable compared with the prior exam, clinical correlation is recommended to exclude infection by a gas-forming organism. 2. Cirrhotic liver morphology. 3. Large amount of ascites. Extensive subcutaneous edema. Large left and small right-sided pleural effusions. Anasarca suggested. Clinical correlation recommended. 4. Gallbladder partially obscured by artifact but moderately distended. Apparent gallbladder wall thickening versus artifact. No calcified gallstones or biliary dilatation. Although nonspecific, gallbladder wall thickening is commonly seen in the setting of chronic liver disease and ascites. 5. No acute bowel pathology demonstrated. Dictated and Authenticated by: Darryl Platt MD. Ordering:GIL Bennett MD
--- NOTE | 2024-04-13 21:34 | ED.GENADUL_ITS ---
Discharge Plan Disposition Patient Disposition: Admit to [facility] Condition: Critical Discharge Details Clinical Impression: CHF (congestive heart failure), Acute UTI, Acute renal failure, Staghorn calculus, Pleural effusion, Ascites Primary Care Provider: Unknown,Unknown ED Provider: Sabrina Waddell Home Meds and New Rx's Prescriptions: No Action acetaminophen 325 mg tablet 325 mg PO Q4H PRN ibuprofen 200 mg tablet 200 mg PO Q6H PRN HPI General Date/Time Provider Initiated Documentation: 04/13/24 16:50 . HPI Narrative: This 64-year-old male with past medical history of cor pulmonale, CHF, atrial fibrillation who was recently admitted at [facility] and discharged on medications but did not follow-up with primary care physician nor is he currently taking any of his prescribed medications. He states that he has had significant swelling and edema to his groin. Patient denies fever or chills. He states that he is unable to lay flat secondary to dyspnea. He also states that his left lower extremity has been quite swollen. He smokes tobacco and drinks alcohol several times a week per patient. He states his last drink was approximately 4 days ago he cannot tell me how much he drinks daily. He denies any fever or chills. He states he feels similarly to when he was hospitalized previously in [place] except he is not quite as sick for patient. He denies any falls or injuries. Related Data Home Medications ?Medication ?Instructions ?Recorded ?Confirmed acetaminophen 325 mg tablet 325 mg PO Q4H PRN 06/11/23 04/13/24 ibuprofen 200 mg tablet 200 mg PO Q6H PRN 06/11/23 04/13/24 Allergies Allergy/AdvReac Type Severity Reaction Status Date / Time No Known Allergies Allergy Verified 10/17/23 11:07 General Stated Complaint: [facility]Medical DOMINICK: 3 Exam Narrative Exam Narrative: Is cooperative, acute respiratory distress, oropharynx patent, uvula midline, disheveled and unkempt, pupils equal round reactive light and accommodation without scleral icterus or obvious jaundice, lungs with wheezes throughout and crackles, diminished, sinus tachycardia, no murmur, obvious anasarca with ascites, testicular swelling/edema, small area of ulceration secondary to edema with tenderness, no crepitus, no obvious evidence of cellulitis, distal pulses intact to bilateral lower extremities, alert and oriented x 4 Course Vital Signs Vital signs: Vital Signs Temperature 36.8 C 04/13/24 16:46 Pulse 81 04/13/24 16:46 Respiratory Rate 22 04/13/24 16:46 Blood Pressure 157/93 H 04/13/24 16:46 Pulse Oximetry 97 04/13/24 16:46 Temperature 36.8 C 04/13/24 18:32 Temperature Source Oral 04/13/24 18:32 Pulse 119 H 04/13/24 21:01 Pulse 117 H 04/13/24 21:01 Respiratory Rate 30 H 04/13/24 21:01 Respiratory Effort Short of Breath 04/13/24 18:32 Respiratory Depth Normal 04/13/24 18:32 Respiratory Pattern Normal 04/13/24 18:32 Blood Pressure 126/111 H 04/13/24 21:01 Blood Pressure Mean 115 04/13/24 21:01 Pulse Oximetry 99 04/13/24 21:01 Oxygen Delivery Method Room Air 04/13/24 18:32 Oxygen Flow Rate 0 04/13/24 18:32 Lab/Test Results Lab/Test Results: 04/13/24 19:18 Blood Blood Culture - Pending 04/13/24 19:00 Urine - Reflex from Ua Urine Culture - Pending 04/13/24 17:12 Blood Blood Culture - Pending Laboratory Tests Range/Units 04/13/24 04/13/24 04/13/24 17:08 17:10 19:00 WBC (4.4-10.8) 10^3/uL 8.91 RBC (4.36-5.78) 10^6/uL 4.97 Hgb (13.5-17.5) g/dL 15.1 Hct (40.0-50.0) % 48.8 MCV (80-95) fL 98 H MCH (27.0-33.0) pg 30.4 MCHC (32.0-36.0) % 30.9 L RDW (11.8-14.1) % 16.8 H Plt Count (130-400) 10^3/uL 312 MPV (8.0-11.0) fL 8.9 Immature Gran % % 0.6 Neutrophils % % 71.6 Lymphocytes % % 17.8 Monocytes % % 9.0 Eosinophils % % 0.3 Basophils % % 0.7 Nucleated RBC % (0.0-0.3) % 0.6 H Absolute Neutrophils (1.2-6.7) 10^3/uL 6.38 Absolute Lymphocytes (1.2-3.4) 10^3/uL 1.59 Absolute Monocytes (0.1-0.8) 10^3/uL 0.80 Absolute Eosinophils (0.0-0.7) 10^3/uL 0.03 Absolute Basophils (0.0-0.2) 10^3/uL 0.06 PT (9.1-11.1) sec 14.3 H INR (0.9-1.1) 1.5 H VBG pH (7.31-7.41) 7.29 L VBG pCO2 (41-51) mmHg 44 VBG pO2 mmHg 29 VBG HCO3 (23-28) mmol/L 21 L VBG Total CO2 (24-29) mmol/L 19 L VBG O2 Saturation % 40 VBG Base Excess (-2-3) mmol/L -6 L VBG Lactate (0.6-1.4) mmol/L 3.6 H* Sodium (136-145) mmol/L 140 Potassium (3.5-5.1) mmol/L 4.6 Chloride (98-107) mmol/L 103 Carbon Dioxide (21.0-32.0) mmol/L 22.3 Anion Gap (3-11) mmol/L 14.7 H BUN (7-18) mg/dL 34 H Creatinine (0.70-1.30) mg/dL 2.1 H Est GFR (CKD-EPI 2020) (mL/min/1.73m2) 34.50 Glucose (74-106) mg/dL 135 H Calcium (8.5-10.1) mg/dL 8.4 L Magnesium (1.8-2.4) mg/dL 2.0 Total Bilirubin (0.2-1.0) mg/dL 1.41 H AST (15-37) U/L 42 H ALT (16-63) U/L 29 Alkaline Phosphatase (46-116) U/L 184 H Troponin I (< or =60) ng/L < 50 NT-Pro-B Natriuret Pep (<300) pg/mL 86997 H Total Protein (6.4-8.2) g/dL 8.3 H Albumin (3.4-5.0) g/dL 3.2 L Lipase (16-77) U/L 20 Urine Color (Yellow) Yellow Urine Clarity (Clear) Cloudy Urine pH (5-8) 5.5 Ur Specific [place] (1.005-1.025) 1.020 Urine Protein (Neg-Trace) mg/dL 30 H Urine Ketones (Negative) mg/dL Negative Urine Blood (Negative) Moderate H Urine Nitrite (Negative) Negative Urine Bilirubin (Negative) Negative Urine Urobilinogen (Up to 0.2) mg/dL 0.2 Ur Leukocyte Esterase (Negative) Moderate H Urine RBC (0-2) HPF 3-5 H Urine WBC (0-5) HPF >50 H Ur Epithelial Cells (Negative) HPF Negative Urine Crystals (Negative) HPF Negative Urine Bacteria (Negative) HPF Many Urine Casts (Negative) LPF Negative Urine Mucus (Negative) Negative Urine Other (Negative) Rare Renal Ur Culture Indicated? Yes Urine Glucose (Negative) mg/dL Negative Ethyl Alcohol (<10) mg/dL 3.2 COVID-19 Source Nasopharynx SARS-CoV-2 (PCR) (Negative) Negative Influenza Type A (PCR) (Negative) Negative Influenza Type B (PCR) (Negative) Negative RSV (PCR) (Negative) Negative Range/Units 04/13/24 20:11 WBC (4.4-10.8) 10^3/uL RBC (4.36-5.78) 10^6/uL Hgb (13.5-17.5) g/dL Hct (40.0-50.0) % MCV (80-95) fL MCH (27.0-33.0) pg MCHC (32.0-36.0) % RDW (11.8-14.1) % Plt Count (130-400) 10^3/uL MPV (8.0-11.0) fL Immature Gran % % Neutrophils % % Lymphocytes % % Monocytes % % Eosinophils % % Basophils % % Nucleated RBC % (0.0-0.3) % Absolute Neutrophils (1.2-6.7) 10^3/uL Absolute Lymphocytes (1.2-3.4) 10^3/uL Absolute Monocytes (0.1-0.8) 10^3/uL Absolute Eosinophils (0.0-0.7) 10^3/uL Absolute Basophils (0.0-0.2) 10^3/uL PT (9.1-11.1) sec INR (0.9-1.1) VBG pH (7.31-7.41) VBG pCO2 (41-51) mmHg VBG pO2 mmHg VBG HCO3 (23-28) mmol/L VBG Total CO2 (24-29) mmol/L VBG O2 Saturation % VBG Base Excess (-2-3) mmol/L VBG Lactate (0.6-1.4) mmol/L Sodium (136-145) mmol/L Potassium (3.5-5.1) mmol/L Chloride (98-107) mmol/L Carbon Dioxide (21.0-32.0) mmol/L Anion Gap (3-11) mmol/L BUN (7-18) mg/dL Creatinine (0.70-1.30) mg/dL Est GFR (CKD-EPI 2020) (mL/min/1.73m2) Glucose (74-106) mg/dL Calcium (8.5-10.1) mg/dL Magnesium (1.8-2.4) mg/dL Total Bilirubin (0.2-1.0) mg/dL AST (15-37) U/L ALT (16-63) U/L Alkaline Phosphatase (46-116) U/L Troponin I (< or =60) ng/L < 50 NT-Pro-B Natriuret Pep (<300) pg/mL Total Protein (6.4-8.2) g/dL Albumin (3.4-5.0) g/dL Lipase (16-77) U/L Urine Color (Yellow) Urine Clarity (Clear) Urine pH (5-8) Ur Specific [place] (1.005-1.025) Urine Protein (Neg-Trace) mg/dL Urine Ketones (Negative) mg/dL Urine Blood (Negative) Urine Nitrite (Negative) Urine Bilirubin (Negative) Urine Urobilinogen (Up to 0.2) mg/dL Ur Leukocyte Esterase (Negative) Urine RBC (0-2) HPF Urine WBC (0-5) HPF Ur Epithelial Cells (Negative) HPF Urine Crystals (Negative) HPF Urine Bacteria (Negative) HPF Urine Casts (Negative) LPF Urine Mucus (Negative) Urine Other (Negative) Ur Culture Indicated? Urine Glucose (Negative) mg/dL Ethyl Alcohol (<10) mg/dL COVID-19 Source SARS-CoV-2 (PCR) (Negative) Influenza Type A (PCR) (Negative) Influenza Type B (PCR) (Negative) RSV (PCR) (Negative) Medical Decision Making 64-year-old male presenting in acute respiratory distress with anasarca with history of CHF and COPD, noncompliant on medications without a current provider. Secondary to wheezing and history of COPD in the presence of tobacco use, 2 DuoNebs and 1 albuterol administered with good effect. [id number] ultrasound was performed with evidence of obvious CHF, curly B-lines, global hypokinesis, and diminished ejection fraction therefore Lasix 40 mg was initiated after reviewing electrolytes. Patient had approximately 600 cc of urine output. An additional 40 mg of Lasix was administered secondary to persistent tachypnea, tachycardia, and preserved blood pressure. Patient has had 1600 cc of output since initial presentation and is feeling marked improvement in symptoms. He is resting comfortably on oxygen for comfort, oxygen has been approximately 90% throughout this encounter. He is able to speak in complete sentences without significant dyspnea. Troponins negative x 2, BNP of 21,000 INR 1.5 likely consistent with cirrhosis, VBG of 3.6, low suspicion clinically for sepsis however I did give a single dose of Zosyn upon arrival secondary to respiratory distress and elevated lactate, gap of 14.7, BUN of 34, creatinine of 2.1 likely secondary to acute CHF and will likely improve with Lasix administration. Will hold on fluids right now secondary to volume overload status. Urinalysis with evidence of urinary tract infection. Of note, patient does have a history of a staghorn calculus however this is unchanged and there is no evidence of obstruction. He was evaluated by urology at [facility] in November for this and there was no intervention warranted at that time with a similar presentation. I did spend approximately 15 minutes reviewing patient's prior documentation and discharge summary from [facility] from November 2023. Patient received Zosyn upon arrival, will need recheck lactate. Patient does endorse history of alcohol use however he does not appear to be presenting as an acute alcohol withdrawal at time of presentation and he states he has not had a drink for approximately 4 days and his alcohol is less than 10. I will leave treatment to the discretion of the admitting provider. Remainder of CT shows evidence of large pleural effusion which actually is improved from chest x-ray performed in November of this year. Patient also has marked ascites evidences, but no evidence of tenderness or acute distress associated with this. Case discussed with Dr. Menezes who will admit patient to his service. Patient remains alert and oriented marked improvement in respiratory status at time of reassessment agreeable to admission at this time. Quality:[facility] Health Related Social Needs: No Data to Display Critical Care Time Critical Care Time Attestation: Approximately 45 minutes of critical care time secondary to acute CHF with respiratory failure and COPD exacerbation, volume overload status, acute renal failure with UTI meeting sepsis criteria, inpatient hospitalization with telemetry monitoring and IV antibiotics with diuresis with Lasix IV. PFSH All Active Problems (Updated 04/13/24 @ 22:37 by AG Crooks) Ascites (Acute) Pleural effusion (Acute) Staghorn calculus (Acute) Acute renal failure (Acute) Acute UTI (Acute) CHF (congestive heart failure) (Chronic) Anasarca (Acute) Renal calculus, left (Acute 11/19/23) Pyelonephritis, acute (Acute 11/19/23) Medical History Anemia Squamous cell skin cancer ETOH abuse Surgical History (Updated 06/11/23 @ 16:02 by Ivett Rich RN) Status post open reduction and internal fixation (ORIF) of fracture Lower leg Right wrist Social History (Updated 05/24/23 @ 10:48 by Radha Nair) Smoking/Tobacco Use Status: Current, status unknown Smoking risk assessment performed?: Yes Alcohol Intake: current Substance use type: marijuana Adopted: No Caregiver/Support person: No Foster care: No Housing: other Details: room in home Communication Needs: None Pets and animals: No PAWSS Have you Been Recently Intoxicated or Drunk Within the Last 30 days?: Yes Have you Ever Experienced Previous Episodes of Alcohol Withdrawal?: No Have you ever Experienced Withdrawal Seizures?: No Have you ever Experienced Delirium Tremens(DT)s?: No Have you ever undergone Alcohol Rehabilitation Treatment (i.e, inpt ot outpatient treatment programs)?: No Have you ever Experienced Blackouts?: No Have you ever Combined Alcohol with other Downers within the last 90 days?: No Have you ever Combined Alcohol with any other Substance of Abuse during the last 90 days?: No Positive Blood Alcohol level on Presentation? [PCS.BAL]: No Evidence of Increased Autonomic Activity (i.e. HR>120, tremor, sweating, agitation, nausea)?: No Result: 1
--- NOTE | 2024-04-13 21:47 | W.PM.HP.N ---
Date of service: 04/13/24 Time of Service: 21:47 Assessment and Plan Assessment and plan (1) Anasarca: Status: Acute Assessment and plan: Anasarca secondary to indeterminate proportions of untreated CHF (mostly right sided) and hepatic insufficiency, all in setting of continued alcohol use and non-compliance and denial. There appears to be also a UTI, apparently incidental. 1. CHF: continue Lasix 80 bid, update ECHO, will cautiously resume beta jeannine, will also help with rate control, (vi) 2. AF: as above will add beta jeannine. Patient is currently auto anticoagulated, to a degree; would consider adding supplemental anticoagulation for usual target but will defer decision until trend is clear 3. Hepatic insufficiency: will trend out INR, no signs encephalopathy. Modest hypoalbuminemia likely not the main factor in anasarca 4. h/o PE: as above partially auto anticoagulated, consider supplemental 5. UTI: await cxx, will switch out to Rocephin 6. EtOH: unknown if hyperdynamics may indicate early withdrawal but remains at risk regardless. Will initiate phenobarb Code Status: unable to have meaningful discussion, will default to Full Code. History of Present Illness History of Present Illness Chief Complaint: SOB, scrotal edema Narrative: 64 male with h/o EtOH abuse, COPD, dliated cardiomyopathy with EF 23%. In [facility] [place] with CHF, AF, PE after episode respiratory failure requiring intubation. Since D/C he has not been taking any of his meds -- He comes in tonight reporting SOB, orthopnea, abdominal and scrotal swelling. In ER findings of note for hypertension, AF/RVR, anasarca; labs of note for white count 21, normal electrolytes; INR 1.5, Alb 3.2, TBili 1.4; BNP>21,000; U/A >50 WBC; CT shows dilated heart, bilateral pleural effusions, ascites, cirrhosis. Has received duonebs and 80 Lasix IV, as well as dose Zosyn. I was asked to evaluate for admission. Patient is evasive and borderline belligerent and denies h/o CHF and PE. Does not proved much history. Review of Systems Narrative: per HPI PFSH All Active Problems (Updated 04/13/24 @ 22:00 by Samuel Menezes MD) Anasarca (Acute) Renal calculus, left (Acute 11/19/23) Pyelonephritis, acute (Acute 11/19/23) Medical History Anemia Squamous cell skin cancer ETOH abuse Surgical History (Updated 06/11/23 @ 16:02 by Ivett Rich RN) Status post open reduction and internal fixation (ORIF) of fracture Lower leg Right wrist Social History (Updated 05/24/23 @ 10:48 by Radha Nair) Smoking/Tobacco Use Status: Current, status unknown Smoking risk assessment performed?: Yes Alcohol Intake: current Substance use type: marijuana Adopted: No Caregiver/Support person: No Foster care: No Housing: other Details: room in home Communication Needs: None Pets and animals: No Meds Allergies and Home Medications Allergies Allergy/AdvReac Type Severity Reaction Status Date / Time No Known Allergies Allergy Verified 10/17/23 11:07 Home Medications ?Medication ?Instructions ?Recorded ?Confirmed ?Type acetaminophen 325 mg tablet 325 mg PO Q4H PRN 06/11/23 04/13/24 History ibuprofen 200 mg tablet 200 mg PO Q6H PRN 06/11/23 04/13/24 History Exam Narrative Exam Narrative: 126/111; 119, 36.8, 30, 99%. HEENT atraumatic; neck supple; lungs diffuse wheeze; heart displaced and hypokinetic PMI, irr/irr; abdomen tense ascites, NT; moderate scrotal edema; extremities 2+ pedal edema; neuro Ox3, moves all 4s Results Labs 04/13/24 17:10 04/13/24 17:10 Labs: Laboratory Results - last 24 hr 04/13/24 04/13/24 04/13/24 17:08 17:10 19:00 WBC 8.91 RBC 4.97 Hgb 15.1 Hct 48.8 MCV 98 H MCH 30.4 MCHC 30.9 L RDW 16.8 H Plt Count 312 MPV 8.9 Immature Gran % 0.6 Neutrophils % 71.6 Lymphocytes % 17.8 Monocytes % 9.0 Eosinophils % 0.3 Basophils % 0.7 Nucleated RBC % 0.6 H Absolute Neutrophils 6.38 Absolute Lymphocytes 1.59 Absolute Monocytes 0.80 Absolute Eosinophils 0.03 Absolute Basophils 0.06 PT 14.3 H INR 1.5 H VBG pH 7.29 L VBG pCO2 44 VBG pO2 29 VBG HCO3 21 L VBG Total CO2 19 L VBG O2 Saturation 40 VBG Base Excess -6 L VBG Lactate 3.6 H* Sodium 140 Potassium 4.6 Chloride 103 Carbon Dioxide 22.3 Anion Gap 14.7 H BUN 34 H Creatinine 2.1 H Est GFR (CKD-EPI 2020) 34.50 Glucose 135 H Calcium 8.4 L Magnesium 2.0 Total Bilirubin 1.41 H AST 42 H ALT 29 Alkaline Phosphatase 184 H Troponin I < 50 NT-Pro-B Natriuret Pep 02539 H Total Protein 8.3 H Albumin 3.2 L Lipase 20 Urine Color Yellow Urine Clarity Cloudy Urine pH 5.5 Ur Specific [place] 1.020 Urine Protein 30 H Urine Ketones Negative Urine Blood Moderate H Urine Nitrite Negative Urine Bilirubin Negative Urine Urobilinogen 0.2 Ur Leukocyte Esterase Moderate H Urine RBC 3-5 H Urine WBC >50 H Ur Epithelial Cells Negative Urine Crystals Negative Urine Bacteria Many Urine Casts Negative Urine Mucus Negative Urine Other Rare Renal Ur Culture Indicated? Yes Urine Glucose Negative Ethyl Alcohol 3.2 COVID-19 Source Nasopharynx SARS-CoV-2 (PCR) Negative Influenza Type A (PCR) Negative Influenza Type B (PCR) Negative RSV (PCR) Negative 04/13/24 20:11 WBC RBC Hgb Hct MCV MCH MCHC RDW Plt Count MPV Immature Gran % Neutrophils % Lymphocytes % Monocytes % Eosinophils % Basophils % Nucleated RBC % Absolute Neutrophils Absolute Lymphocytes Absolute Monocytes Absolute Eosinophils Absolute Basophils PT INR VBG pH VBG pCO2 VBG pO2 VBG HCO3 VBG Total CO2 VBG O2 Saturation VBG Base Excess VBG Lactate Sodium Potassium Chloride Carbon Dioxide Anion Gap BUN Creatinine Est GFR (CKD-EPI 2020) Glucose Calcium Magnesium Total Bilirubin AST ALT Alkaline Phosphatase Troponin I < 50 NT-Pro-B Natriuret Pep Total Protein Albumin Lipase Urine Color Urine Clarity Urine pH Ur Specific [place] Urine Protein Urine Ketones Urine Blood Urine Nitrite Urine Bilirubin Urine Urobilinogen Ur Leukocyte Esterase Urine RBC Urine WBC Ur Epithelial Cells Urine Crystals Urine Bacteria Urine Casts Urine Mucus Urine Other Ur Culture Indicated? Urine Glucose Ethyl Alcohol COVID-19 Source SARS-CoV-2 (PCR) Influenza Type A (PCR) Influenza Type B (PCR) RSV (PCR) Last Vital Signs Temp 36.8 C 04/13/24 18:32 Pulse 119 H 04/13/24 21:01 Resp 30 H 04/13/24 21:01 BP 126/111 H 04/13/24 21:01 Pulse Ox 99 04/13/24 21:01 PAWSS Have you Been Recently Intoxicated or Drunk Within the Last 30 days?: Yes Have you Ever Experienced Previous Episodes of Alcohol Withdrawal?: No Have you ever Experienced Withdrawal Seizures?: No Have you ever Experienced Delirium Tremens(DT)s?: No Have you ever undergone Alcohol Rehabilitation Treatment (i.e, inpt ot outpatient treatment programs)?: No Have you ever Experienced Blackouts?: No Have you ever Combined Alcohol with other Downers within the last 90 days?: No Have you ever Combined Alcohol with any other Substance of Abuse during the last 90 days?: No Positive Blood Alcohol level on Presentation? [PCS.BAL]: No Evidence of Increased Autonomic Activity (i.e. HR>120, tremor, sweating, agitation, nausea)?: No Result: 1 Time Spent Time spent with Patient: >75 minutes Time was spent: preparing to see the patient(eg.review tests), obtaining and/or reviewing separately otained hiistory, ordering medications,tests, procedures, referring, communicating with other health skin care consultant and indepentently interpreting results
[2024-04-14] VITALS (104 sets, daily range): BP systolic 105–157; BP diastolic 71–118; PULSE 80–162; RESP 2–34; TEMP 36.6–37.3; O2SAT 86–99
--- NOTE | 2024-04-14 01:47 | W.PCEDHO ---
Registration Status: Primary Language: Preferred Language: ED Information & Data Chief Complaint GenMedical 04/13/24 22:04 Triage Note Patient complaining of 04/13/24 16:46 swollen testicles, legs/back pain for 1 week Medical / Surgical History Anemia Squamous cell skin cancer ETOH abuse (Last Updated 06/11/23 @ 16:02 by Ivett Rich RN) Status post open reduction and internal fixation (ORIF) of fracture Most Recent Vital Signs Temperature 36.8 C 04/13/24 18:32 Temperature Source Oral 04/13/24 18:32 Pulse 115 H 04/14/24 00:46 Pulse 116 H 04/14/24 00:50 Respiratory Rate 20 04/14/24 00:50 Respiratory Effort Short of Breath 04/13/24 18:32 Respiratory Depth Normal 04/13/24 18:32 Respiratory Pattern Normal 04/13/24 21:49 Blood Pressure 138/94 H 04/14/24 00:46 Blood Pressure Mean 108 04/14/24 00:46 Pulse Oximetry 93 04/14/24 00:50 Oxygen Delivery Method Room Air 04/13/24 18:32 Oxygen Flow Rate 0 04/13/24 18:32 Allergies No Known Allergies Allergy (Verified 10/17/23 11:07) IV IV Catheter Type [Right Hand] Saline Lock IV Catheter Type [Right Saline Lock Antecubital] IV Catheter Gauge [Right Hand] 18 IV Catheter Gauge [Right 18 Antecubital] Diet Orders Category Date Time Status Low Sodium [DIET] Nutrition 04/14/24 Breakfast Active Diagnostics 04/14/24 04/13/24 04/13/24 Range/Units 05:35 20:11 19:00 WBC Pending (4.4-10.8) 10^3/uL RBC Pending (4.36-5.78) 10^6/uL Hgb Pending (13.5-17.5) g/dL Hct Pending (40.0-50.0) % MCV Pending (80-95) fL MCH Pending (27.0-33.0) pg MCHC Pending (32.0-36.0) % RDW Pending (11.8-14.1) % Plt Count Pending (130-400) 10^3/uL MPV Pending (8.0-11.0) fL Immature Gran % % Neutrophils % % Lymphocytes % % Monocytes % % Eosinophils % % Basophils % % Nucleated RBC % (0.0-0.3) % Absolute Neutrophils (1.2-6.7) 10^3/uL Absolute Lymphocytes (1.2-3.4) 10^3/uL Absolute Monocytes (0.1-0.8) 10^3/uL Absolute Eosinophils (0.0-0.7) 10^3/uL Absolute Basophils (0.0-0.2) 10^3/uL PT Pending (9.1-11.1) sec INR Pending (0.9-1.1) VBG pH (7.31-7.41) VBG pCO2 (41-51) mmHg VBG pO2 mmHg VBG HCO3 (23-28) mmol/L VBG Total CO2 (24-29) mmol/L VBG O2 Saturation % VBG Base Excess (-2-3) mmol/L VBG Lactate (0.6-1.4) mmol/L Sodium Pending (136-145) mmol/L Potassium Pending (3.5-5.1) mmol/L Chloride Pending (98-107) mmol/L Carbon Dioxide Pending (21.0-32.0) mmol/L Anion Gap Pending (3-11) mmol/L BUN Pending (7-18) mg/dL Creatinine Pending (0.70-1.30) mg/dL Est GFR (CKD-EPI 2020) Pending (mL/min/1.73m2) Glucose Pending (74-106) mg/dL Calcium Pending (8.5-10.1) mg/dL Magnesium (1.8-2.4) mg/dL Total Bilirubin (0.2-1.0) mg/dL AST (15-37) U/L ALT (16-63) U/L Alkaline Phosphatase (46-116) U/L Troponin I < 50 (< or =60) ng/L NT-Pro-B Natriuret Pep (<300) pg/mL Total Protein (6.4-8.2) g/dL Albumin (3.4-5.0) g/dL Lipase (16-77) U/L Urine Color Yellow (Yellow) Urine Clarity Cloudy (Clear) Urine pH 5.5 (5-8) Ur Specific [place] 1.020 (1.005-1.025) Urine Protein 30 H (Neg-Trace) mg/dL Urine Ketones Negative (Negative) mg/dL Urine Blood Moderate H (Negative) Urine Nitrite Negative (Negative) Urine Bilirubin Negative (Negative) Urine Urobilinogen 0.2 (Up to 0.2) mg/dL Ur Leukocyte Esterase Moderate H (Negative) Urine RBC 3-5 H (0-2) HPF Urine WBC >50 H (0-5) HPF Ur Epithelial Cells Negative (Negative) HPF Urine Crystals Negative (Negative) HPF Urine Bacteria Many (Negative) HPF Urine Casts Negative (Negative) LPF Urine Mucus Negative (Negative) Urine Other Rare Renal (Negative) Ur Culture Indicated? Yes Urine Glucose Negative (Negative) mg/dL Ethyl Alcohol (<10) mg/dL COVID-19 Source SARS-CoV-2 (PCR) (Negative) Influenza Type A (PCR) (Negative) Influenza Type B (PCR) (Negative) RSV (PCR) (Negative) 04/13/24 04/13/24 Range/Units 17:10 17:08 WBC 8.91 (4.4-10.8) 10^3/uL RBC 4.97 (4.36-5.78) 10^6/uL Hgb 15.1 (13.5-17.5) g/dL Hct 48.8 (40.0-50.0) % MCV 98 H (80-95) fL MCH 30.4 (27.0-33.0) pg MCHC 30.9 L (32.0-36.0) % RDW 16.8 H (11.8-14.1) % Plt Count 312 (130-400) 10^3/uL MPV 8.9 (8.0-11.0) fL Immature Gran % 0.6 % Neutrophils % 71.6 % Lymphocytes % 17.8 % Monocytes % 9.0 % Eosinophils % 0.3 % Basophils % 0.7 % Nucleated RBC % 0.6 H (0.0-0.3) % Absolute Neutrophils 6.38 (1.2-6.7) 10^3/uL Absolute Lymphocytes 1.59 (1.2-3.4) 10^3/uL Absolute Monocytes 0.80 (0.1-0.8) 10^3/uL Absolute Eosinophils 0.03 (0.0-0.7) 10^3/uL Absolute Basophils 0.06 (0.0-0.2) 10^3/uL PT 14.3 H (9.1-11.1) sec INR 1.5 H (0.9-1.1) VBG pH 7.29 L (7.31-7.41) VBG pCO2 44 (41-51) mmHg VBG pO2 29 mmHg VBG HCO3 21 L (23-28) mmol/L VBG Total CO2 19 L (24-29) mmol/L VBG O2 Saturation 40 % VBG Base Excess -6 L (-2-3) mmol/L VBG Lactate 3.6 H* (0.6-1.4) mmol/L Sodium 140 (136-145) mmol/L Potassium 4.6 (3.5-5.1) mmol/L Chloride 103 (98-107) mmol/L Carbon Dioxide 22.3 (21.0-32.0) mmol/L Anion Gap 14.7 H (3-11) mmol/L BUN 34 H (7-18) mg/dL Creatinine 2.1 H (0.70-1.30) mg/dL Est GFR (CKD-EPI 2020) 34.50 (mL/min/1.73m2) Glucose 135 H (74-106) mg/dL Calcium 8.4 L (8.5-10.1) mg/dL Magnesium 2.0 (1.8-2.4) mg/dL Total Bilirubin 1.41 H (0.2-1.0) mg/dL AST 42 H (15-37) U/L ALT 29 (16-63) U/L Alkaline Phosphatase 184 H (46-116) U/L Troponin I < 50 (< or =60) ng/L NT-Pro-B Natriuret Pep 91235 H (<300) pg/mL Total Protein 8.3 H (6.4-8.2) g/dL Albumin 3.2 L (3.4-5.0) g/dL Lipase 20 (16-77) U/L Urine Color (Yellow) Urine Clarity (Clear) Urine pH (5-8) Ur Specific [place] (1.005-1.025) Urine Protein (Neg-Trace) mg/dL Urine Ketones (Negative) mg/dL Urine Blood (Negative) Urine Nitrite (Negative) Urine Bilirubin (Negative) Urine Urobilinogen (Up to 0.2) mg/dL Ur Leukocyte Esterase (Negative) Urine RBC (0-2) HPF Urine WBC (0-5) HPF Ur Epithelial Cells (Negative) HPF Urine Crystals (Negative) HPF Urine Bacteria (Negative) HPF Urine Casts (Negative) LPF Urine Mucus (Negative) Urine Other (Negative) Ur Culture Indicated? Urine Glucose (Negative) mg/dL Ethyl Alcohol 3.2 (<10) mg/dL COVID-19 Source Nasopharynx SARS-CoV-2 (PCR) Negative (Negative) Influenza Type A (PCR) Negative (Negative) Influenza Type B (PCR) Negative (Negative) RSV (PCR) Negative (Negative) 04/13/24 19:18 Blood Culture - Pending Blood 04/13/24 19:00 Urine Culture - Pending Urine - Reflex from Ua 04/13/24 17:12 Blood Culture - Pending Blood Intake and Output - 24 Hour Total 04/13/24 16:39 thru 04/13/24 19:27 Intake Total 150 Output Total 900 Balance -750 Weight 118.7 kg Intake: IV 50 Other 100 Output: Urine 900 Other: Urine Color Yellow Straw Urine Appearance Clear Urinary Catheter Urinary Catheter Date of 04/13/24 Insertion [Uretheral (Power)] Time of insertion [Uretheral ( 18:00 Power)] Falls Risk Assessment History of Falls No History 04/13/24 18:32 Contributing Factors No Factors 04/13/24 18:32 Ambulatory Aids Independent 04/13/24 18:32 Tubes/Lines None 04/13/24 18:32 Gait Evaluation No gait disturbance 04/13/24 18:32 Cognition No cognitive impairment 04/13/24 18:32 Fall Total Score 0 04/13/24 18:32 Level of Risk Standard/Low Risk 04/13/24 18:32 Problems (Last Updated 06/11/23 @ 16:02 by Ivett Rich RN) Anasarca (Acute) v v v v v v v v v Sending and/or Receiving Nurses: Please use comment section below to note any information pertinent to the patient hand-off not included above. Information / Comments: Report received from: [facility]
[2024-04-14] MEDS: Albuterol/Ipratropium 3 ML UPD VIAL (02:10)
[2024-04-14] MEDS: Metoprolol 25 MG TAB PO (02:45)
[2024-04-14] MEDS: cefTRIAXone 1 GM/50 ML BAG IV (04:30)
[2024-04-14] MEDS: PHENobarbital 130 MG in Normal Saline 50 ML 100 MG IVPB ×2 (05:31→08:03)
[2024-04-14] MEDS: Furosemide 100 MG/10 ML VIAL 80 MG IVP ×2 (06:23→16:10)
[2024-04-14] MEDS: Albuterol/Ipratropium 3 ML UPD VIAL UPD ×3 (06:24→23:25)
[2024-04-14 06:55] LABS: HCT 39.1 % (40.0-50.0); HGB 12.3 g/dL (13.5-17.5); MCH 30.5 pg (27.0-33.0); MCHC 31.5 % (32.0-36.0); MCV 97 fL (80-95); MPV 9.4 fL (8.0-11.0); Platelet Count 223 10^3/uL (130-400); RBC 4.03 10^6/uL (4.36-5.78); RDW 16.4 % (11.8-14.1); RDW-SD 57.1 fL; WBC 5.82 10^3/uL (4.4-10.8)
[2024-04-14 07:04] LABS: INR 1.4 (0.9-1.1); Prothrombin Time 13.4 sec (9.1-11.1)
[2024-04-14 07:15] LABS: BUN 39 mg/dL (7-18); Calcium 7.8 mg/dL (8.5-10.1); Chloride 107 mmol/L (98-107); Estimated GFR 36.58 (mL/min/1.73m2); Glucose 224 mg/dL (74-106); Potassium 3.8 mmol/L (3.5-5.1); Sodium 143 mmol/L (136-145)
--- NOTE | 2024-04-14 10:30 | DI.US_ITS ---
APPROVED REPORT EXAM: Comprehensive 2D, Doppler, and color-flow Echocardiogram Patient Location: In-Patient Room/Bed: 220 [employer]ator Service Mechanic: Alex Lua RDCS (AE) Indications: anasarca Other Information Technically limited study due to uncooperative patient, inability to position patient. Conclusion Normal left ventricular wall thickness and chamber size. Ejection fraction is 25% there is global hy pokinesis Right ventricle is dilated and hypocontractile Normal left atrial size. Right atrium is severely dilated There are no structural valvular abnormalities Mild mitral regurgitation Estimated right ventricular systolic pressure was 29 mmHg Wall motion Left Ventricle The left ventricle is normal size. Left ventricular systolic function is decreased. There is normal l eft ventricular wall thickness. There is global hypokinesis of the left ventricle. There is no ventri cular septal defect visualized. LVEF is 25%. Right Ventricle Right ventricle is dilated. Right ventricular systolic function is reduceed Atria The left atrium size is normal. Right atrium is severely dilated. The interatrial septum is intact wi th no evidence for an atrial septal defect. Aortic Valve The aortic valve is normal in structure. Aortic valve is trileaflet. There is no aortic valvular sten osis. No aortic regurgitation is present. Mitral Valve The mitral valve is normal in structure. No evidence of mitral valve stenosis. Mild mitral regurgitat ion. Tricuspid Valve The tricuspid valve is normal in structure. There is no tricuspid valve stenosis. Mild tricuspid regu rgitation. The RVSP is 29.2 mmHg. Pulmonic Valve The pulmonary valve is normal in structure. There is no pulmonic valvular stenosis. There is no pulmo mati valvular regurgitation. Great Vessels The aortic root is normal in size. The ascending aorta is mildly dilated. Aortic arch is not well vis ualized. IVC is normal in size and collapses >50% with inspiration. Pericardium There is no pericardial effusion. 2D Dimensions IVSD d PLAX 0.88 cm M: 0.6-1.2 Ao Root d 3.08 cm M: 3.1 - 3.7 LVPW d PLAX 0.86 cm M: 0.6 - 1.2 Ao Asc Diam d 3.87 cm M: 2.6 - 3.4 LVID d PLAX 5.11 cm M: 4.2 - 5.8 LVDs 4.11 cm M: 2.5 - 4.0 LV EF Teichholz 40.0 % FS 19.59 % LV EDV (Teich) 124.5 mL LV ESV (Teich) 74.7 mL Stroke Vol Index (Teich) 21.56 M-Mode TAPSE 1.71 cm (M/F) >1.7 Auto EF LV EDV A4C 176.8 mL LV EDV A2C 242.7 mL LV EDV BP 207.6 mL LV ESV A4C 132.6 mL LV ESV A2C 177.2 mL LV ESV BP 154.9 mL LVEF(%) A4C 25.0 % LVEF(%) A2C 27.0 % LVEF(%) BP 25.4 % LV SV A4C 44.2 ml LV SV A2C 65.5 ml LV SV BP 52.7 ml LV CO A4C 5.3 L/min LV CO A2C 7.8 L/min LV CO BP 6.6 L/min HR A4C 119.61 BPM HR A2C 119.61 BPM LV EDV Index (BP) LA Volume LA Length A4C 5.9 cm LA Length A2C 6.2 cm LA Area A4C s 17.66 cm2 LA Area A2C s 25.71 cm2 LA Vol A4C A-L 44.78 mL LA Vol A2C A-L 91.07 mL LA Vol Biplane A-L 65.2 mL LA Vol/BSA A4C A-L LA Vol/BSA A2C A-L LA Vol/BSA BP A-L 28.2 mL/m2 LA Vol A4C MOD 41.7 mL LA Vol A2C MOD 84.9 mL LA Vol BP MOD 60.6 mL RA Volume RA Area A4C 33.5 cm2 RA ESV A4C (A-L) 134.1mL RA Vol/BSA A4C A-L RA Length A4C 7.1 cm RA ESV A4C (MOD) 129.7mL LV Diastology MV E' medial 0.116 (>0.07 m/s) MV E Vmax 1.07 (0.4-1.3 m/s) MV E' lateral 0.179 (>0.1 m/s) Aortic Valve AoV Vmax 1.21 m/s LVOT Vmax 1.07 m/s AoV Peak Grad 5.8 mmHg LVOT Peak Grad 4.6 mmHg AoV Area (Vmax) 2.78 cm2 LVOT VTI 0.145 m AoV VTI 0.189 m LVOT Mean Grad 2.4 mmHg AoV Mean Petey. 0.87 m/s LVOT SV 45.56 mL AoV Mean Grad 3.4 mmHg LVOT Diam s 2.00 cm AoV Area (VTI) 2.41 cm2 AV Regurg Peak Gr. 5.85 mmHg Velocity Ratio 0.88 Mitral Valve MV Vmax TIPS 0.98 m/s MR Vmax 4.44 m/s MV Mean Grad 1.4 (<2mmHg) MR VTI 1.279 m MV VTI 0.159 m MR Peak Grad 79.0 mmHg MR Mean Grad 53.4 mmHg Pulmonary Valve RVOT Vmax 0.42 m/s RVOT Peak Gr. 0.7 mmHg RVOT VTI 0.074 m RVOT Mean Gr. 0.4 mmHg Tricuspid Valve RA Pressure 3.00 mmHg TR Vmax 2.56 m/s TR Peak Grad 26.2 mmHg RVSP (TR) 29.2 mmHg
[2024-04-14] MEDS: Normal Saline 50 ML (10:42)
[2024-04-14] MEDS: Normal Saline Flush 10 ML SYR (10:43)
--- NOTE | 2024-04-14 13:29 | W.PM.PROGNOT ---
Date of Service Date of service: 04/14/24 Time of Service: 13:29 Assessment and Plan Assessment and plan (1) Severe sepsis: Status: Acute Assessment and plan: -patient meets criteria for severe sepsis with HR >100, RR >20, UTI as initial source of infection and now with gram negative and GPC bacteremia, and an initial lactic acid of 3.6 -repeat lactic was not done on admission but is being ordered right now, will f/u result -HR and respiratory rate are also improved -initially given zosyn in the ED which was changed to CTX on admission and will be continued -have ordered repeat blood cultures and started vanc based on GPC on first set of cultures drawn in the ED, will follow-up results (2) Acute UTI: Status: Acute Assessment and plan: -as noted above (3) Alcoholic cirrhosis: Status: Acute Assessment and plan: -known history, and patient continues to consume alcohol, refuses to elaborate on quantity or frequency -t. bili 1.4, INR 1.4, Cr 2, BUN 39 -[facility] primary cause of significant anasarca, ascites, and pleural effusion -patient has been on IV lasix 80mg BID with good UOP, will continue -patient agreeable for paracentesis, however, current on-call [facility] surgeon does not do bedside paracentesis; plan to ask ongoing ED physician if htey might have time during their shift (4) Anasarca: Status: Acute Assessment and plan: -as noted above (5) Pleural effusion: Status: Acute Assessment and plan: -as noted above (6) Acute respiratory failure with hypoxia: Status: Acute Assessment and plan: -likely secondary to pleural effusion and significant anasarca/ascites as noted above Subjective Subjective Interval history since last seen: Patient very belligerent during discussion this morning, as he was fixating on his dislike for some of his care team, and often cursing when speaking. He was very difficult to keep on topic regarding the reasons for his currently hospitalization. He refused to accept the possibility that he may have heart failure, so much so that he would interrupt me multiple times to say so. Additionally, he was unwilling to attempt to listen to or understand the reason for his liver failure, and fixated on the amount of total fluids that he should be consuming a day, ask if he should limit himself to 6oz of water or day but could then drink as much tea or soda as he wanted. Exam Narrative Exam Narrative: chronically ill appearing disheveled gentleman laying in bed in no acute distress, AOx4, 2L NC in place, heart RRR, lung sounds diminished on the left about 2/3s up, clear on the right, abdomen sigificantly distended with positive fluid wave, no tenderness to palpation, significant anasarca of the scrotum and swelling in bilateral LE up to the hips Objective Last Vital Signs Temp 98.2 F 04/14/24 07:30 Pulse 117 H 04/14/24 06:29 Resp 20 04/14/24 06:29 BP 128/102 H 04/14/24 04:01 Pulse Ox 91 L 04/14/24 12:10 Laboratory Results - last 24 hr 04/13/24 04/13/24 04/13/24 17:08 17:10 19:00 WBC 8.91 RBC 4.97 Hgb 15.1 Hct 48.8 MCV 98 H MCH 30.4 MCHC 30.9 L RDW 16.8 H Plt Count 312 MPV 8.9 Immature Gran % 0.6 Neutrophils % 71.6 Lymphocytes % 17.8 Monocytes % 9.0 Eosinophils % 0.3 Basophils % 0.7 Nucleated RBC % 0.6 H Absolute Neutrophils 6.38 Absolute Lymphocytes 1.59 Absolute Monocytes 0.80 Absolute Eosinophils 0.03 Absolute Basophils 0.06 PT 14.3 H INR 1.5 H VBG pH 7.29 L VBG pCO2 44 VBG pO2 29 VBG HCO3 21 L VBG Total CO2 19 L VBG O2 Saturation 40 VBG Base Excess -6 L VBG Lactate 3.6 H* Sodium 140 Potassium 4.6 Chloride 103 Carbon Dioxide 22.3 Anion Gap 14.7 H BUN 34 H Creatinine 2.1 H Est GFR (CKD-EPI 2020) 34.50 Glucose 135 H Calcium 8.4 L Magnesium 2.0 Total Bilirubin 1.41 H AST 42 H ALT 29 Alkaline Phosphatase 184 H Troponin I < 50 NT-Pro-B Natriuret Pep 88346 H Total Protein 8.3 H Albumin 3.2 L Lipase 20 Urine Color Yellow Urine Clarity Cloudy Urine pH 5.5 Ur Specific [place] 1.020 Urine Protein 30 H Urine Ketones Negative Urine Blood Moderate H Urine Nitrite Negative Urine Bilirubin Negative Urine Urobilinogen 0.2 Ur Leukocyte Esterase Moderate H Urine RBC 3-5 H Urine WBC >50 H Ur Epithelial Cells Negative Urine Crystals Negative Urine Bacteria Many Urine Casts Negative Urine Mucus Negative Urine Other Rare Renal Ur Culture Indicated? Yes Urine Glucose Negative Ethyl Alcohol 3.2 COVID-19 Source Nasopharynx SARS-CoV-2 (PCR) Negative Influenza Type A (PCR) Negative Influenza Type B (PCR) Negative RSV (PCR) Negative 04/13/24 04/14/24 20:11 05:26 WBC 5.82 RBC 4.03 L Hgb 12.3 L D Hct 39.1 L MCV 97 H MCH 30.5 MCHC 31.5 L RDW 16.4 H Plt Count 223 MPV 9.4 Immature Gran % Neutrophils % Lymphocytes % Monocytes % Eosinophils % Basophils % Nucleated RBC % Absolute Neutrophils Absolute Lymphocytes Absolute Monocytes Absolute Eosinophils Absolute Basophils PT 13.4 H INR 1.4 H VBG pH VBG pCO2 VBG pO2 VBG HCO3 VBG Total CO2 VBG O2 Saturation VBG Base Excess VBG Lactate Sodium 143 Potassium 3.8 Chloride 107 Carbon Dioxide 25.0 Anion Gap 11.0 BUN 39 H Creatinine 2.0 H Est GFR (CKD-EPI 2020) 36.58 Glucose 224 H Calcium 7.8 L Magnesium Total Bilirubin AST ALT Alkaline Phosphatase Troponin I < 50 NT-Pro-B Natriuret Pep Total Protein Albumin Lipase Urine Color Urine Clarity Urine pH Ur Specific [place] Urine Protein Urine Ketones Urine Blood Urine Nitrite Urine Bilirubin Urine Urobilinogen Ur Leukocyte Esterase Urine RBC Urine WBC Ur Epithelial Cells Urine Crystals Urine Bacteria Urine Casts Urine Mucus Urine Other Ur Culture Indicated? Urine Glucose Ethyl Alcohol COVID-19 Source SARS-CoV-2 (PCR) Influenza Type A (PCR) Influenza Type B (PCR) RSV (PCR) PAWSS Have you Been Recently Intoxicated or Drunk Within the Last 30 days?: Yes Have you Ever Experienced Previous Episodes of Alcohol Withdrawal?: No Have you ever Experienced Withdrawal Seizures?: No Have you ever Experienced Delirium Tremens(DT)s?: No Have you ever undergone Alcohol Rehabilitation Treatment (i.e, inpt ot outpatient treatment programs)?: No Have you ever Experienced Blackouts?: No Have you ever Combined Alcohol with other Downers within the last 90 days?: No Have you ever Combined Alcohol with any other Substance of Abuse during the last 90 days?: No Positive Blood Alcohol level on Presentation? [PCS.BAL]: No Evidence of Increased Autonomic Activity (i.e. HR>120, tremor, sweating, agitation, nausea)?: No Result: 1 Time Spent with Patient Time Spent with Patient: >50 minutes Time was spent: preparing to see the patient(eg.review tests), obtaining and/or reviewing separately otained hiistory, ordering medications,tests, procedures, referring, communicating with other health auto care center manager, indepentently interpreting results, counseling the patient and care coordination
--- NOTE | 2024-04-14 13:32 | W.PULMCC ---
General Date of Service Date of service: 04/14/24 Time of Service: 13:32 Admit Date Admit Date: 04/14 Reason for Admission to ICU: Anasarca Assessment and Plan Assessment and plan (1) Severe sepsis: Status: Acute Assessment and plan: Gram Negative Urine, GPC clusters Blood -initially given zosyn in the ED which was changed to CTX on admission and will be continued -have ordered repeat blood cultures and started vanc based on GPC on first set of cultures drawn in the ED, will follow-up results (2) Acute UTI: Status: Acute Assessment and plan: -as noted above (3) Alcoholic cirrhosis: Status: Acute Assessment and plan: -known history, and patient continues to consume alcohol, MELD3.0 Score 19 -t. bili 1.4, INR 1.4, Cr 2, BUN 39 -[facility] primary cause of significant anasarca, ascites, and pleural effusion -patient has been on IV lasix 80mg BID with good UOP, will continue -needs therapeutic paracentesis - pls give albumin prior 25grams/5L or more. -please send for culture, albumin, total protein, LDh, amylase Qualifiers: Ascites presence: with ascites Qualified Code(s): K70.31 - Alcoholic cirrhosis of liver with ascites (4) Anasarca: Status: Acute (5) Pleural effusion: Status: Acute Assessment and plan: seems small for right now cont to observe. may improve w/ diuresis. (6) Acute respiratory failure with hypoxia: Status: Acute Assessment and plan: -likely secondary to pleural effusion and significant anasarca/ascites as noted above Given body habitus, high risk for POLO - watch his O2 sats at night Needs to obtain records of previous hospitalization w/ PE to decide on safety of anticoagulation in the future. Recommendations I&O: Intake & Output 04/11/24 04/12/24 04/13/24 04/14/24 23:59 23:59 23:59 23:59 Intake Total 150 / 345 817.9679 / 854.9747 Output Total 900 / 900 3900 / 3900 Balance -750 / -750 -3045.0253 / -3045.0253 Weight 118.7 kg 116 kg Date of Last Bowel Movement: 04/13/24 Code Status: Resuscitation Status Full Code Subjective Critical and life-threatening events over the past 24 hours: Pt admitted over the weekend w/ Anasarca. Somewhat short temped and aggressive to staff. ? if his own personality of withdrawal from ETOH. There is a hx/o PE in the past w/ hypox resp failure and not curerntly taking anticoagulation - needs to be lcarified. Most Recent VS/Results Last Vital Signs Temp 36.8 C 04/14/24 07:30 Pulse 117 H 04/14/24 06:29 Resp 20 04/14/24 06:29 BP 128/102 H 04/14/24 04:01 Pulse Ox 91 L 04/14/24 12:10 Laboratory Results - last 24 hr 04/13/24 04/13/24 04/13/24 17:08 17:10 19:00 WBC 8.91 RBC 4.97 Hgb 15.1 Hct 48.8 MCV 98 H MCH 30.4 MCHC 30.9 L RDW 16.8 H Plt Count 312 MPV 8.9 Immature Gran % 0.6 Neutrophils % 71.6 Lymphocytes % 17.8 Monocytes % 9.0 Eosinophils % 0.3 Basophils % 0.7 Nucleated RBC % 0.6 H Absolute Neutrophils 6.38 Absolute Lymphocytes 1.59 Absolute Monocytes 0.80 Absolute Eosinophils 0.03 Absolute Basophils 0.06 PT 14.3 H INR 1.5 H VBG pH 7.29 L VBG pCO2 44 VBG pO2 29 VBG HCO3 21 L VBG Total CO2 19 L VBG O2 Saturation 40 VBG Base Excess -6 L VBG Lactate 3.6 H* Sodium 140 Potassium 4.6 Chloride 103 Carbon Dioxide 22.3 Anion Gap 14.7 H BUN 34 H Creatinine 2.1 H Est GFR (CKD-EPI 2020) 34.50 Glucose 135 H Calcium 8.4 L Magnesium 2.0 Total Bilirubin 1.41 H AST 42 H ALT 29 Alkaline Phosphatase 184 H Troponin I < 50 NT-Pro-B Natriuret Pep 36506 H Total Protein 8.3 H Albumin 3.2 L Lipase 20 Urine Color Yellow Urine Clarity Cloudy Urine pH 5.5 Ur Specific [place] 1.020 Urine Protein 30 H Urine Ketones Negative Urine Blood Moderate H Urine Nitrite Negative Urine Bilirubin Negative Urine Urobilinogen 0.2 Ur Leukocyte Esterase Moderate H Urine RBC 3-5 H Urine WBC >50 H Ur Epithelial Cells Negative Urine Crystals Negative Urine Bacteria Many Urine Casts Negative Urine Mucus Negative Urine Other Rare Renal Ur Culture Indicated? Yes Urine Glucose Negative Ethyl Alcohol 3.2 COVID-19 Source Nasopharynx SARS-CoV-2 (PCR) Negative Influenza Type A (PCR) Negative Influenza Type B (PCR) Negative RSV (PCR) Negative 04/13/24 04/14/24 20:11 05:26 WBC 5.82 RBC 4.03 L Hgb 12.3 L D Hct 39.1 L MCV 97 H MCH 30.5 MCHC 31.5 L RDW 16.4 H Plt Count 223 MPV 9.4 Immature Gran % Neutrophils % Lymphocytes % Monocytes % Eosinophils % Basophils % Nucleated RBC % Absolute Neutrophils Absolute Lymphocytes Absolute Monocytes Absolute Eosinophils Absolute Basophils PT 13.4 H INR 1.4 H VBG pH VBG pCO2 VBG pO2 VBG HCO3 VBG Total CO2 VBG O2 Saturation VBG Base Excess VBG Lactate Sodium 143 Potassium 3.8 Chloride 107 Carbon Dioxide 25.0 Anion Gap 11.0 BUN 39 H Creatinine 2.0 H Est GFR (CKD-EPI 2020) 36.58 Glucose 224 H Calcium 7.8 L Magnesium Total Bilirubin AST ALT Alkaline Phosphatase Troponin I < 50 NT-Pro-B Natriuret Pep Total Protein Albumin Lipase Urine Color Urine Clarity Urine pH Ur Specific [place] Urine Protein Urine Ketones Urine Blood Urine Nitrite Urine Bilirubin Urine Urobilinogen Ur Leukocyte Esterase Urine RBC Urine WBC Ur Epithelial Cells Urine Crystals Urine Bacteria Urine Casts Urine Mucus Urine Other Ur Culture Indicated? Urine Glucose Ethyl Alcohol COVID-19 Source SARS-CoV-2 (PCR) Influenza Type A (PCR) Influenza Type B (PCR) RSV (PCR) Review of Systems Narrative: per HPI Time spent with patient Time spent in Critical Care: 40 Time spent in Critical care included: Coordination of care, Chart review, Documenting critically ill care and Time at immediate bedside
[2024-04-14] MEDS: VANCOMYCIN/WATER (PEG) 1.25 GM/250 ML BAG IV ×2 (15:49→17:33)
--- NOTE | 2024-04-14 18:21 | INITIAL_ITS ---
Date of service: 04/14/24 Time of Service: 18:22 Care Management Initial Assmt Initial Assessment Reason for Hospitalization: Anasarca Functional Status/Living Situation Patient Presentation: Samuel was sleeping when CM attempted to visit with him; his RN advised not to wake him, as he has been agitated/unpleasant with some staff today. Per chart review, Samuel lives in [facility], [facility]; no contacts listed on chart or HIPAA. Per RN, Samuel reported that he has some difficulty in his home due to his bathroom being located down the [address], with a small step to get into. He also reported difficulty in bathing himself regularly; CM will discuss options for services at home. Samuel does not have a PCP listed; CM will verify this with him, and will request a follow up appointment with the identification and records commander provider if this is accurate. CM will continue to follow. Town of Residence: [facility] Resides with: Alone Employment Status: Unemployed Advance Directives Advance Directives: Do you have an Advance Directive: N 06/29/23 14:23 AD On File at [facility]: N 10/17/23 11:16 Date Asked 04/13/24 04/13/24 17:01 AD Date Reviewed COLST On File at [facility] COLST Date Scanned Code Status Resuscitation Status Full Code Insurance Coverage/Financial Issues Insurance: [facility] Care Team Visit Care Team Role Provider Type Unknown Unknown Primary Care Provider STAFF PHYSICIAN AG Crooks Emergency Provider [employer] T[employer]ER Samuel Menezes MD Admit Provider [facility] STAFF PHYSICIAN Attending Provider Discharge Potential Discharge Needs: PT Evaluation and PCP F/U Appt (possible identification and records commander provider follow up ) Anticipated Barriers to Discharge: None Identified Patient/Family Education Needs: Review discharge instructions, discuss Ask Me Three Transportation: RCT Plan: Anticipate Samuel will return home, possibly with new services, if indicated. He will likely transport via RCT, coordinated by CM. He will follow up with his PCP and discharge plan of care. CM will continue to follow. PFSH All Active Problems (Updated 04/14/24 @ 16:06 by Aileen Bermudez MD) Acute respiratory failure with hypoxia (Acute) Severe sepsis (Acute) Alcoholic cirrhosis (Acute) Sepsis (Acute) Ascites (Acute) Pleural effusion (Acute) Staghorn calculus (Acute) Acute renal failure (Acute) Acute UTI (Acute) CHF (congestive heart failure) (Chronic) Anasarca (Acute) Renal calculus, left (Acute 11/19/23) Pyelonephritis, acute (Acute 11/19/23) Medical History Anemia Squamous cell skin cancer ETOH abuse Surgical History (Updated 06/11/23 @ 16:02 by Ivett Rich RN) Status post open reduction and internal fixation (ORIF) of fracture Lower leg Right wrist Social History (Updated 05/24/23 @ 10:48 by Radha Nair) Smoking/Tobacco Use Status: Current, status unknown Smoking risk assessment performed?: Yes Alcohol Intake: current Substance use type: marijuana Adopted: No Caregiver/Support person: No Foster care: No Housing: apartment Communication Needs: None Pets and animals: No SDOH(Care Management) Screening Will the Patient Participate in the Screening?: Unable to obtain Social Determinants of Health Comments(SDOH Details): pt very hard to understand
[2024-04-14] MEDS: Normal Saline Flush 10 ML SYR IVP (19:06)
[2024-04-14 22:48] LABS: Lactate 1.8 mmol/L (0.6-1.4)
[2024-04-14 23:07] LABS: ALT 22 U/L (16-63); AST 23 U/L (15-37); Albumin 2.7 g/dL (3.4-5.0); Alkaline Phosphatase 157 U/L (46-116); Anion Gap 11.6 mmol/L (3-11); BUN 45 mg/dL (7-18); Bilirubin, Total 0.59 mg/dL (0.2-1.0); CO2 25.4 mmol/L (21.0-32.0); Calcium 7.5 mg/dL (8.5-10.1); Chloride 107 mmol/L (98-107); Estimated GFR 36.58 (mL/min/1.73m2); Glucose 158 mg/dL (74-106); Potassium 3.5 mmol/L (3.5-5.1); Sodium 144 mmol/L (136-145); Total Protein 7.2 g/dL (6.4-8.2)
--- NOTE | 2024-04-14 23:15 | RT.EKG_ITS ---
APPROVED REPORT Exam: Resting ECG Reason for Exam: Change in [facility] Patient Location: I HR:162 bpm ECG Measurements Heart Rate 162 AXIS SD 82 P 254 QRSd 89 QRS 54 QT 265 T 253 QTc 436 Conclusion Supraventricular tachycardia...V-rate>(220-age), QRSd<120 Multiple ventricular premature complexes...V complexes w/ short R-R intervls Low voltage, precordial leads...precordial leads <1.0mV Repolarization abnormality, prob rate related...ST dep, T neg, tachycardia Probably atrial fibrillation
--- NOTE | 2024-04-14 23:50 | NUR.NOTE ---
Addendum entered by Samuel Gonzalez RN 04/15/24 00:22: Security presence was requested on the floor in anticipation of possible escalation of behavior when pt was heard threatening to kill RN who was in the room at the time. Pt was amenable to taking PO medication. Pt HR continues to be above 150 with a high of 187. Original Note: Nursing Note: Around 2330 RN was assessing pt when he requested albuterol. RN took note of the fact that his HR was escalating with a high of 165. MD was notified with new orders entered. RT was paged to perform EKG r/t rhythm change at which point pt became belligerent and very verbally abusive to staff with the appearance of possibly becoming physically violent. RN considered that behavior may be r/t detox and attempted to approach with PRN phenobarb. Meanwhile attempts were being made to explain to the pt that a nebulizer might be dangerous under the current circumstances. Pt continued to be irate and insisted that there's NOTHING WRONG WITH MY FUCKING HEART!. Pt was offered a nebulizer when he voiced understanding that it could worsen his condition. consulted and PO phenobarb request because pt may be more willing to it in that form with other medication. approved request.
[2024-04-14] MEDS: Metoprolol 12.5 MG TAB PO (23:55)
[2024-04-14] MEDS: Potassium Chloride 20 MEQ TABCR PO (23:56)
[2024-04-15] VITALS (51 sets, daily range): BP systolic 97–136; BP diastolic 65–117; PULSE 61–185; RESP 5–33; TEMP 36.4–36.9; O2SAT 86–97
[2024-04-15] MEDS: PHENobarbital 130 MG/ML VIAL IVP ×2 (00:30→01:41)
[2024-04-15] MEDS: Metoprolol 5 MG/5 ML VIAL 2.5 MG IVP ×4 (01:40→05:25)
--- NOTE | 2024-04-15 03:05 | NUR.NOTE ---
Nursing Note: Pt HR has converted to previous rhythm of 2:1 aflutter at 122 after receiving a total of 5 mg IVP metoprolol. Rhythm has been steady since second IVP admin.
[2024-04-15] MEDS: cefTRIAXone 1 GM/50 ML BAG IV (03:55)
--- NOTE | 2024-04-15 04:06 | NUR.NOTE ---
Nursing Note: Pt HR returned to rapid afib around 160. Another 2.5 mg IVP metoprolol delivered to good effect. HR is now 2:1 aflutter at 121 which appears to be baseline for this admission.
--- NOTE | 2024-04-15 04:11 | NUR.NOTE ---
Nursing Note: Pt continues to refuse SpO2 monitoring at this time. Cardiac and BP monitoring still in place.
[2024-04-15] MEDS: Normal Saline Flush 10 ML SYR IVP ×2 (04:22→22:09)
[2024-04-15] MEDS: Metoprolol 12.5 MG TAB PO (05:25)
--- NOTE | 2024-04-15 05:30 | NUR.NOTE ---
Nursing Note: Pt HR began to return to rapid afib >140. Last authorized IVP metoprolol dose given. Rhythm returned to stable a flutter at 122.
[2024-04-15 06:57] LABS: HCT 38.8 % (40.0-50.0); HGB 12.2 g/dL (13.5-17.5); MCH 30.7 pg (27.0-33.0); MCHC 31.4 % (32.0-36.0); MCV 98 fL (80-95); MPV 9.6 fL (8.0-11.0); Platelet Count 217 10^3/uL (130-400); RBC 3.97 10^6/uL (4.36-5.78); RDW 16.5 % (11.8-14.1); RDW-SD 58.6 fL; WBC 14.19 10^3/uL (4.4-10.8)
[2024-04-15 07:26] LABS: Magnesium 1.9 mg/dL (1.8-2.4)
[2024-04-15 07:30] LABS: ALT 20 U/L (16-63); AST 18 U/L (15-37); Albumin 2.5 g/dL (3.4-5.0); Alkaline Phosphatase 147 U/L (46-116); BUN 49 mg/dL (7-18); Bilirubin, Total 0.41 mg/dL (0.2-1.0); CREATININE 1.9 mg/dL (0.70-1.30); Calcium 7.6 mg/dL (8.5-10.1); Chloride 106 mmol/L (98-107); Estimated GFR 38.91 (mL/min/1.73m2); Glucose 148 mg/dL (74-106); Potassium 3.6 mmol/L (3.5-5.1); Sodium 145 mmol/L (136-145); Total Protein 6.8 g/dL (6.4-8.2)
[2024-04-15 07:30] LABS: Vancomycin, Random 20.4 ug/mL
[2024-04-15] MEDS: Furosemide 100 MG/10 ML VIAL 80 MG IVP ×2 (08:26→16:12)
[2024-04-15] MEDS: Thiamine 100 MG TAB PO (08:27)
[2024-04-15] MEDS: Potassium Chloride 20 MEQ TABCR PO (08:28)
[2024-04-15] MEDS: Folic Acid 1 MG TAB PO (08:28)
[2024-04-15] MEDS: Multivitamin TAB 1 TAB PO (08:28)
[2024-04-15] MEDS: Metoprolol 25 MG TAB PO (08:28)
[2024-04-15] MEDS: Calcium Carbonate *TUMS* 500 MG CHEW PO ×2 (08:34→22:07)
--- NOTE | 2024-04-15 10:02 | CMPROGNOTE_ITS ---
Date of service: 04/15/24 Time of Service: 10:02 Care Management Progress Note Progress Note Text Progress Note Text: Samuel was sitting up in bed when CM met with him. He engaged in conversation regarding his discharge plan, although at times he was tangential, but redirectable. Samuel expressed frustration with staff focusing on his heart, as he feels that his heart is ok, but he is more concerned with his lungs/breathing, the fluid in his abdomen, and the swelling of his legs. He stated that he was set up with [facility], but he cancelled a couple of appointments because he didn't know if his insurance was active, and he was worried about accruing a large bill. CM discussed [facility] financial assistance, which he stated that he doesn't think he will qualify. 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 He is from [place], but lived in [place] for about twenty years before finding housing in [facility]; he does not have any family or friends in the area. Samuel stated that he plans to return home as soon as possible, and would prefer to discharge on . 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 He stated that he keeps to himself; he doesn't bother anyone, and prefers not to be bothered. He reported that he has not been able to sleep well, which he described as torture, and felt that his lack of sleep has had a negative impact on his mood. CM will continue to follow. Discharge Potential Discharge Needs: PCP F/U Appt (with datapower consultant provider) Anticipated Barriers to Discharge: None Identified Patient/Family Education Needs: Review discharge instructions, discuss Ask Me Three Transportation: RCT Plan: Anticipate Samuel will return home, possibly with new services, if indicated. He will likely transport via RCT, coordinated by CM. He will follow up with his PCP and discharge plan of care. CM will continue to follow. SDOH(Care Management) Screening Will the Patient Participate in the Screening?: Unable to obtain Social Determinants of Health Comments(SDOH Details): pt very hard to understand
--- NOTE | 2024-04-15 10:13 | W.PM.PROGNOT ---
Date of Service Date of service: 04/15/24 Time of Service: 10:13 Assessment and Plan Assessment and plan (1) Severe sepsis: Status: Acute Assessment and plan: -Gram Negative Urine, GPC clusters Blood -initially given zosyn in the ED which was changed to CTX on admission and will be continued -repeat blood cultures also positive for GPCs -started vanc, will f/u results of blood cultures -no clear source of infection at this time -will continue to repeat blood cultures, and may need to consider TESSA if patient remains persistantly bacteremic (2) Acute UTI: Status: Acute Assessment and plan: -as noted above (3) Alcoholic cirrhosis: Status: Acute Assessment and plan: -known history, and patient continues to consume alcohol, MELD3.0 Score 19 -t. bili 1.4, INR 1.4, Cr 2, BUN 39 -likley contributing factor of anasarca, ascites, and pleural effusion in combination with newly diagnosed HFrEF as noted above -patient has been on IV lasix 80mg BID with good UOP, will continue -would benefit from paracentesis but patient states that he would like to continue with diuresis instead Qualifiers: Ascites presence: with ascites Qualified Code(s): K70.31 - Alcoholic cirrhosis of liver with ascites (4) Anasarca: Status: Acute Assessment and plan: -as noted above (5) Pleural effusion: Status: Acute Assessment and plan: -seems small for right now -cont to observe. -may improve w/ diuresis. (6) Acute respiratory failure with hypoxia: Status: Acute Assessment and plan: -likely secondary to pleural effusion and significant anasarca/ascites as noted above -Given body habitus, high risk for POLO - watch his O2 sats at night (7) HFrEF (heart failure with reduced ejection fraction): Status: Acute Assessment and plan: -TTE from 04/14 shows EF 25%, global hypokenesis of left ventricle and hypocontractile dilated right ventricle -likely contributing factor in anasarca and pleural effusion -being diuresed as noted above -patient will need left heart cath as outpatient -once patient is more stable will slowly add goal directed therapy including entresto, and GLP-2 inhibitor (8) SVT (supraventricular tachycardia): Status: Chronic Assessment and plan: -patient with periods of tachycardia, found to be SVT on EKG -started lopressor 25mg PO bid, will also have PRN IV 5mg lopressor for HR sustained >120bpm Subjective Subjective Interval history since last seen: Patient is significantly more polite and cooperative today both with myself and with nursing staff. Additionally, he is able to verbalize understanding and accept that he does have HFrEF with an EF of 25% and that it, in combination with his EtOH cirrhosis, is contributing to his edema. However, he also states that he is feeling better, that his edema is improving, and that he is thankful for the care that he has been receiving here. Exam Narrative Exam Narrative: chronically ill appearing disheveled gentleman laying in bed in no acute distress, AOx4, 2L NC in place, heart RRR, lung sounds diminished on the left about 1/2s up, clear on the right, abdomen distended with mild improvement as compared to previous day, positive fluid wave, no tenderness to palpation, significant anasarca of the scrotum and swelling in bilateral LE up to the hips Objective Last Vital Signs Temp 98.4 F 04/15/24 09:04 Pulse 78 04/15/24 09:19 Resp 31 H 04/15/24 09:45 BP 107/82 04/15/24 09:19 Pulse Ox 96 04/15/24 09:19 Laboratory Results - last 24 hr 04/14/24 04/14/24 04/15/24 22:32 22:37 05:41 WBC 14.19 H RBC 3.97 L Hgb 12.2 L Hct 38.8 L MCV 98 H MCH 30.7 MCHC 31.4 L RDW 16.5 H Plt Count 217 MPV 9.6 VBG Lactate Cancelled 1.8 H Sodium 144 145 Potassium 3.5 3.6 Chloride 107 106 Carbon Dioxide 25.4 29.0 Anion Gap 11.6 H 10.0 BUN 45 H 49 H Creatinine 2.0 H 1.9 H Est GFR (CKD-EPI 2020) 36.58 38.91 Glucose 158 H 148 H Calcium 7.5 L 7.6 L Magnesium 1.9 Total Bilirubin 0.59 0.41 AST 23 18 ALT 22 20 Alkaline Phosphatase 157 H 147 H Total Protein 7.2 6.8 Albumin 2.7 L 2.5 L Random Vancomycin 04/15/24 05:52 WBC RBC Hgb Hct MCV MCH MCHC RDW Plt Count MPV VBG Lactate Sodium Potassium Chloride Carbon Dioxide Anion Gap BUN Creatinine Est GFR (CKD-EPI 2020) Glucose Calcium Magnesium Total Bilirubin AST ALT Alkaline Phosphatase Total Protein Albumin Random Vancomycin 20.4 PAWSS Have you Been Recently Intoxicated or Drunk Within the Last 30 days?: Yes Have you Ever Experienced Previous Episodes of Alcohol Withdrawal?: No Have you ever Experienced Withdrawal Seizures?: No Have you ever Experienced Delirium Tremens(DT)s?: No Have you ever undergone Alcohol Rehabilitation Treatment (i.e, inpt ot outpatient treatment programs)?: No Have you ever Experienced Blackouts?: No Have you ever Combined Alcohol with other Downers within the last 90 days?: No Have you ever Combined Alcohol with any other Substance of Abuse during the last 90 days?: No Positive Blood Alcohol level on Presentation? [PCS.BAL]: No Evidence of Increased Autonomic Activity (i.e. HR>120, tremor, sweating, agitation, nausea)?: No Result: 1 Time Spent with Patient Time Spent with Patient: >50 minutes Time was spent: preparing to see the patient(eg.review tests), obtaining and/or reviewing separately otained hiistory, ordering medications,tests, procedures, referring, communicating with other health overnight caregiver, indepentently interpreting results, counseling the patient and care coordination
[2024-04-15] MEDS: Levalbuterol 1.25 MG/3 ML UPD VIAL UPD ×2 (10:16→23:30)
[2024-04-15] MEDS: Metoprolol 5 MG/5 ML VIAL IVP (11:29)
[2024-04-15] MEDS: Acetaminophen 325 MG TAB 650 MG PO (11:51)
[2024-04-15] MEDS: VANCOMYCIN/WATER (PEG) 1.25 GM/250 ML BAG IVPB (14:29)
[2024-04-15 18:51] LABS: Hemoglobin A1C 5.7 % (<5.7)
[2024-04-16] VITALS (11 sets, daily range): BP systolic 111–120; BP diastolic 70–93; PULSE 84–125; RESP 5–22; TEMP 36.6–37.3; O2SAT 88–98
[2024-04-16] MEDS: traZODone 50 MG TAB PO ×2 (00:32→21:41)
[2024-04-16] MEDS: cefTRIAXone 1 GM/50 ML BAG IV (04:44)
[2024-04-16] MEDS: Normal Saline Flush 10 ML SYR IVP ×2 (04:45→16:39)
[2024-04-16 06:16] LABS: HCT 42.4 % (40.0-50.0); HGB 13.4 g/dL (13.5-17.5); MCH 30.5 pg (27.0-33.0); MCHC 31.6 % (32.0-36.0); MCV 96 fL (80-95); MPV 9.7 fL (8.0-11.0); Platelet Count 211 10^3/uL (130-400); RDW 16.7 % (11.8-14.1); RDW-SD 57.7 fL; WBC 14.62 10^3/uL (4.4-10.8)
[2024-04-16 06:27] LABS: INR 1.4 (0.9-1.1); Prothrombin Time 13.4 sec (9.1-11.1)
[2024-04-16 06:47] LABS: ALT 22 U/L (16-63); AST 25 U/L (15-37); Albumin 2.5 g/dL (3.4-5.0); Alkaline Phosphatase 132 U/L (46-116); Anion Gap 13.4 mmol/L (3-11); BUN 61 mg/dL (7-18); Bilirubin, Total 0.43 mg/dL (0.2-1.0); CO2 20.6 mmol/L (21.0-32.0); Calcium 7.7 mg/dL (8.5-10.1); Chloride 105 mmol/L (98-107); Estimated GFR 36.58 (mL/min/1.73m2); Glucose 113 mg/dL (74-106); Potassium 4.6 mmol/L (3.5-5.1); Sodium 139 mmol/L (136-145); Total Protein 6.7 g/dL (6.4-8.2)
[2024-04-16] MEDS: Acetaminophen 325 MG TAB 650 MG PO ×2 (08:42→23:30)
[2024-04-16] MEDS: Potassium Chloride 20 MEQ TABCR PO (08:43)
[2024-04-16] MEDS: Multivitamin TAB 1 TAB PO (08:43)
[2024-04-16] MEDS: Furosemide 100 MG/10 ML VIAL 80 MG IVP ×2 (08:43→16:38)
[2024-04-16] MEDS: Metoprolol 25 MG TAB PO ×2 (08:44→21:41)
[2024-04-16] MEDS: Folic Acid 1 MG TAB PO (08:44)
[2024-04-16] MEDS: Thiamine 100 MG TAB PO (08:44)
--- NOTE | 2024-04-16 08:52 | PDOC.CMPRO ---
Date of service: 04/16/24 Time of Service: 09:49 Care Management Progress Note Progress Note Text Progress Note Text: Samuel continues to be closely monitored in the ICU, and was in the middle of a procedure when CM attempted to meet with him, CM following. Discharge Potential Discharge Needs: PT Evaluation and PCP F/U Appt ([facility] ) Anticipated Barriers to Discharge: None Identified Patient/Family Education Needs: Review discharge instructions, discuss Ask Me Three Transportation: RCT Plan: Anticipate Samuel will return home, possibly with new services, if indicated. He will likely transport via RCT, coordinated by CM. He will follow up with his PCP and discharge plan of care. CM will continue to follow. SDOH(Care Management) Screening Will the Patient Participate in the Screening?: Unable to obtain Social Determinants of Health Comments(SDOH Details): pt very hard to understand
--- NOTE | 2024-04-16 11:15 | PHA.REVIEW2 ---
Pharmacy Admission Review Admission Clinical Review Admission Pharmacy Review: HFrEF (heart failure with reduced ejection fraction) (Acute) Acute respiratory failure with hypoxia (Acute) Severe sepsis (Acute) Alcoholic cirrhosis (Acute) Pleural effusion (Acute) Acute UTI (Acute) Anasarca (Acute) No Known Allergies Allergy (Verified 10/17/23 11:07) Resuscitation Status Full Code Height 5 ft 9 in Weight 116.3 kg Pharmacy Admission Review Renal Dosing Renal Dosing: BUN 61 mg/dL (7-18) H 04/16/24 05:58 Creatinine 2.0 mg/dL (0.70-1.30) H 04/16/24 05:58 Medications needing adjustments: Reviewed (CrCl 46.9 mL/min, BUN increased from 49 and SCr increased from 1.9) List of meds needing interventions: Current medications are okay Anticoagulation Anticoagulation: Hgb 13.4 g/dL (13.5-17.5) L 04/16/24 05:58 Hct 42.4 % (40.0-50.0) 04/16/24 05:58 Plt Count 211 10^3/uL (130-400) 04/16/24 05:58 INR 1.4 (0.9-1.1) H 04/16/24 05:58 Creatinine 2.0 mg/dL (0.70-1.30) H 04/16/24 05:58 DVT Prophylaxis: Intervened (None at this time, per H+P patient is auto anticoagulated - reached out to provider about this to verify, Hgb increased from 12.2) Relevant Labs Relevant Labs: Sodium 139 mmol/L (136-145) 04/16/24 05:58 Potassium 4.6 mmol/L (3.5-5.1) D 04/16/24 05:58 Chloride 105 mmol/L (98-107) 04/16/24 05:58 Magnesium 1.9 mg/dL (1.8-2.4) 04/15/24 05:41 Electrolytes, C-Reactive P, ESR: Reviewed (A1C 5.7%, glucose 113) Cardiac Review Cardiac Review: Troponin I < 50 ng/L (< or =60) 04/13/24 20:11 NT-Pro-B Natriuret Pep 76150 pg/mL (<300) H 04/13/24 17:10 BP, HR, EF%: Reviewed (HR and BP WNL) QTc Review QTc: Reviewed (436 from 04/14/24) IV to PO Switch IV Medications: Reviewed (ceftriaxone, furosemide, phenobarbital and vancomycin) Home Meds Home Med List reviewed: Reviewed Relevent Home Meds Not ordered & why?: ibuprofen (PRN) Current Meds Current Medication Order Review: Intervened Comments: Phenobarbital for alcohol withdrawal Soft stop: 1060.5 mg Hard stop: 1414 mg Current total: 990 mg as of 04/16/24 at 1100 Nursing is aware that that patient is approaching soft stop Added IV admission order set Pharmacy Antibiotic Review Relevant Labs: WBC 14.62 10^3/uL (4.4-10.8) H 04/16/24 05:58 Temperature 37.3 C Microbiology 04/14/24 13:44 Blood Culture - Preliminary Blood Gram Positive Cocci 04/13/24 17:12 Blood Culture - Preliminary Blood Gram Positive Cocci 04/13/24 19:00 Urine Culture - Final Urine - Reflex from Ua Escherichia coli 04/13/24 19:18 Blood Culture - Preliminary Blood NO GROWTH 48 HOURS 04/14/24 13:15 Blood Culture - Preliminary Blood NO GROWTH 24 HOURS Pharmacy Antibiotic Activity: C/S review and Reviewed, no change Comments: Patient is on ceftriaxone and vancomycin, day 3, for UTI. 1 of 2 blood culture growing gram positive cocci. the other is showing no growth. Vancomycin currently dosed at 1250mg every 24 hours with predicted AUC of 514 and trough of 15.2. Ordered another level with morning labs tomorrow due to unstable kidney function. WBC increased from 14.19.
--- NOTE | 2024-04-16 11:47 | PGE_ITS ---
Date of Service Date of service: 04/16/24 Time of Service: 11:47 Assessment and Plan Assessment and plan (1) Severe sepsis: Status: Acute Assessment and plan: -Gram Negative Urine, GPC clusters Blood -initially given zosyn in the ED which was changed to CTX on admission and will be continued -repeat blood cultures also positive for GPCs -started vanc, will f/u results of blood cultures -no clear source of infection at this time, thought may be either urine or underlying PNA obscured by LLB atelectasis -will continue to repeat blood cultures, and may need to consider TESSA if patient remains persistantly bacteremic (2) Acute UTI: Status: Acute Assessment and plan: -as noted above (3) Alcoholic cirrhosis: Status: Acute Assessment and plan: -known history, and patient continues to consume alcohol, MELD3.0 Score 19 -t. bili 1.4, INR 1.4, Cr 2, BUN 39 on admission -likley contributing factor of anasarca, ascites, and pleural effusion in combination with newly diagnosed HFrEF as noted above -patient has been on IV lasix 80mg BID with good UOP, will continue -would benefit from paracentesis but patient states that he would like to continue with diuresis instead Qualifiers: Ascites presence: with ascites Qualified Code(s): K70.31 - Alcoholic cirrhosis of liver with ascites (4) Anasarca: Status: Acute Assessment and plan: -as noted above (5) Pleural effusion: Status: Acute Assessment and plan: -seems small for right now -cont to observe. -may improve w/ diuresis. (6) Acute respiratory failure with hypoxia: Status: Acute Assessment and plan: -likely secondary to pleural effusion and significant anasarca/ascites as noted above and possible underlying PNA -Given body habitus, high risk for POLO - watch his O2 sats at night (7) HFrEF (heart failure with reduced ejection fraction): Status: Acute Assessment and plan: -TTE from 04/14 shows EF 25%, global hypokenesis of left ventricle and hypocontractile dilated right ventricle -likely contributing factor in anasarca and pleural effusion -being diuresed as noted above -patient will need left heart cath as outpatient -once patient is more stable will slowly add goal directed therapy including entresto, and GLP-2 inhibitor (8) SVT (supraventricular tachycardia): Status: Chronic Assessment and plan: -patient with periods of tachycardia, found to be SVT on EKG -started lopressor 25mg PO bid, will also have PRN IV 5mg lopressor for HR sustained >120bpm Subjective Subjective Interval history since last seen: Patient continues to state that he is feeling better each day. He understands the plan to continue IV lasix and work on weaning him off of supplement oxygen. He also continues to intermittently refuse certain aspects of care such as leaving on his pulse ox and telemetry. Exam Narrative Exam Narrative: chronically ill appearing disheveled gentleman laying in bed in no acute distress, AOx4, 2L NC in place, heart RRR, lung sounds diminished on the left about 1/2s up, clear on the right, abdomen distended with moderate improvement as compared to previous day, positive fluid wave, no tenderness to palpation, si gnificant anasarca of the scrotum and swelling in bilateral LE up to the hips but also with moderate improvement as compared to previous days Objective Last Vital Signs Temp 99.1 F 04/16/24 07:15 Pulse 118 H 04/16/24 10:46 Resp 20 04/16/24 07:15 BP 111/93 H 04/16/24 10:46 Pulse Ox 94 04/16/24 10:46 Laboratory Results - last 24 hr 04/15/24 04/16/24 05:41 05:58 WBC 14.62 H RBC 4.40 Hgb 13.4 L Hct 42.4 MCV 96 H MCH 30.5 MCHC 31.6 L RDW 16.7 H Plt Count 211 MPV 9.7 PT 13.4 H INR 1.4 H Sodium 139 Potassium 4.6 D Chloride 105 Carbon Dioxide 20.6 L Anion Gap 13.4 H BUN 61 H Creatinine 2.0 H Est GFR (CKD-EPI 2020) 36.58 Glucose 113 H Hemoglobin A1c 5.7 Calcium 7.7 L Total Bilirubin 0.43 AST 25 ALT 22 Alkaline Phosphatase 132 H Total Protein 6.7 Albumin 2.5 L PAWSS Have you Been Recently Intoxicated or Drunk Within the Last 30 days?: Yes Have you Ever Experienced Previous Episodes of Alcohol Withdrawal?: No Have you ever Experienced Withdrawal Seizures?: No Have you ever Experienced Delirium Tremens(DT)s?: No Have you ever undergone Alcohol Rehabilitation Treatment (i.e, inpt ot outpatient treatment programs)?: No Have you ever Experienced Blackouts?: No Have you ever Combined Alcohol with other Downers within the last 90 days?: No Have you ever Combined Alcohol with any other Substance of Abuse during the last 90 days?: No Positive Blood Alcohol level on Presentation? [PCS.BAL]: No Evidence of Increased Autonomic Activity (i.e. HR>120, tremor, sweating, agitation, nausea)?: No Result: 1 Time Spent with Patient Time Spent with Patient: >50 minutes Time was spent: preparing to see the patient(eg.review tests), obtaining and/or reviewing separately otained hiistory, ordering medications,tests, procedures, referring, communicating with other health health and social care teacher, indepentently interpreting results, counseling the patient and care coordination
[2024-04-16] MEDS: VANCOMYCIN/WATER (PEG) 1.25 GM/250 ML BAG IVPB (13:44)
[2024-04-16] MEDS: Levalbuterol 1.25 MG/3 ML UPD VIAL UPD (14:37)
--- NOTE | 2024-04-16 15:25 | PT.INIE ---
PT Notes Visit Reasons: [facility] Inpatient Physical Therapy Evaluation Date: 04/16/2024 Referring Doctor: Dr Waddell PT Orders: PT CONSULT: evaluate for safe ambulation Precautions:IV lines, oxygen, telemetry Patient Profile/Admitting Diagnosis: Pt is 64 yo male presented with Anasarca d/t CHF and hepatic insufficiency in setting of ETOH use. Pt developed severe sepsis treated with IV ABX, UTI, Acute hypoxic respiratory failure d/t pleural effusion. He also developed SVT. He currently is on telemetry in the ICU. PMHX: ETOH abuse, Alcoholic cirrhosis, COPD, cardiomyopathy with EF 25%, ORIF of leg and right wrist Social History/Home Situation: lives alone reports inconsistent 3-6 steps to enter . Current Functional Limitations: ambulates with B axillary crutches, Equipment Owned/DME: rollator, FWW axillary crutches Subjective: I don't know why everyone keeps coming in here and waking me up. Objective: General Observation: dissheveled male supine in bed with no clothes on, Pt agreeable to don gown for assessment Mental Status: alert , agitated, resistive Pain: of course I have pain pt would not elaborate on location or intensity Vital Signs: monitored via telemetry ROM: Not formally tested d/t pt refusal to participate Right Upper Extremity: WFL Left Upper Extremity: WFL Right Lower Extremity: WFL Left Lower Extremity: WFL Strength: Right Upper Extremity: grossly 5/5 Left Upper Extremity: grossly 5/5 Right Lower Extremity: grossly 3/3- not formally tested d/t pt refusal to participate Left Lower Extremity: grossly 3/3- not formally tested Sensation: NA Bed Mobility/Transfers: SBA for bed mobility and transfers sit to/from stand Gait: pt amb 5 feet without AD with SBA however demonstrates excessive trunk sway , lateral weight shifting to advance LE , He declined use of crutches stating I know I can do it why do I have to prove it to you. Balance: Static Sitting: Normal Dynamic Sitting: Good Static Standing: Fair + Dynamic Standing: Fair Special Tests: Mobility Limitations Standardized Measure [facility] AM-PAC 6 clicks Basic Mobility Inpatient Short Form: Raw Score: 20 Standardized Score: [] CMS Score: 35.85% Informed Consent/Education: Patient instructed in purpose of PT consult and plan of care. Assessment: Patient is a 64 year old male referred to physical therapy services with the diagnosis of Severe sepsis, Anasarca, CHF, hepatic insufficiency. Pt is resistant to staff providing assistance. He can be belligerent and resistive to participating with tasks. Patient presents with clinical signs and symptoms consistent with admitting diagnosis, as demonstrated by the following impairment level findings: 1. impaired strength BLE proximal > distal 2. impaired prorioception kinesthetic awareness B feet 3. impaired balance reaction in standing Impairments are contributing to the following functional limitations: 1.? Inability to safely ambulate without assistive device 2.? Increase completion time for mobility ADL performance 3.? Increased fall risk [facility] score. Patient is assessed as a Low 73732 complexity based on the following: History: ETOH abuse , COPD, Anasarca, Cardiomyopathy with EF 25% Examination: IV fluids and diuretics infusing, oxygen supplemental at 2L Presentation: impaired strength, motor control Proximal musculature > distal BLE, impaired balance reactions standing, impaired proprioception and kinesthetic awareness limiting bed mobility, transfers ambulation and stair ability Decision Making: poor Goals: Goals X1 week 1. Supine-Sit Independent 2. Sit-Supine Independent 3. Sit-Stand Independent 4. Stand-Sit Independent 5. Bed-Chair independent 6. Chair-Bed independent 7. Gait modified independent with axillary crutches 150 feet 8. Stairs 3 steps with rail and crutches 9. Independent with home exercise program 10. Balance good as indicated by ability to perform independent ambulation Plan of Care/Treatment Plan: 1-2x/day, 7 days/week x 1 week. Plan of care has been reviewed with the TAPE RECORDER MECHANIC providing the service under Physical Therapy direction. Initiate Physical Therapy intervention for strengthening, bed mobility, transfers, gait, stairs, balance training, use of assistive device. DISCHARGE RECOMMENDATIONS: Home with services PT TREATMENT CODE/TIME: 86719/30 mins Please sign an return this page within 30 days if you agree with the above POC. Thank you! Physician Signature Date [facility]
--- NOTE | 2024-04-16 22:25 | W.PC.ACHO ---
Registration Status: Primary Language: Preferred Language: ED Information & Data Chief Complaint GenMedical 04/13/24 22:04 Triage Note Patient complaining of 04/13/24 16:46 swollen testicles, legs/back pain for 1 week Medical / Surgical History Anemia Squamous cell skin cancer ETOH abuse (Last Updated 06/11/23 @ 16:02 by Ivett Rich RN) Status post open reduction and internal fixation (ORIF) of fracture Most Recent Vital Signs Temperature 37.2 C 04/16/24 22:14 Temperature Source Temporal Artery Scan 04/16/24 16:34 Pulse 125 H 04/16/24 22:14 Pulse 142 H 04/15/24 12:15 Respiratory Rate 20 04/16/24 22:14 Respiratory Effort Grunting, Incrsd Work of Breathing 04/16/24 16:40 Respiratory Depth Deep 04/16/24 16:40 Respiratory Pattern Tachypnea 04/16/24 10:00 Blood Pressure 120/70 04/16/24 22:14 Blood Pressure Mean 92 04/16/24 16:01 Blood Pressure Position Supine 04/14/24 20:24 Pulse Oximetry 98 04/16/24 22:14 Oxygen Delivery Method Room Air 04/16/24 22:14 Oxygen Flow Rate 0 04/16/24 22:14 Pain Level 2 04/16/24 22:14 Comment patient refuses heart monitor 04/15/24 16:01 Allergies No Known Allergies Allergy (Verified 10/17/23 11:07) Active Medications Generic Name Dose Route Start Last Admin Trade Name Freq PRN Reason Stop Dose Admin Acetaminophen 650 mg 04/15/24 11:46 04/16/24 08:42 Acetaminophen 325 Mg Tab PO 650 mg Q6H PRN PRN Administration Albuterol/Ipratropium 3 ml 04/14/24 05:32 04/14/24 23:25 Albuterol/Ipratropium 3 Ml Upd Vial UPD 3 ml Q4H PRN PRN Administration Calcium Carbonate 500 mg 04/15/24 07:18 04/15/24 22:07 Calcium Carbonate *Tums* 500 Mg Chew PO 500 mg QID PRN PRN Administration Folic Acid 1 mg 04/15/24 08:30 04/16/24 08:44 Folic Acid 1 Mg Tab PO 04/21/24 08:31 1 mg QAM TISHA Administration Furosemide 80 mg 04/14/24 08:00 04/16/24 16:38 Furosemide 100 Mg/10 Ml Vial IVP 80 mg BID@0800,1600 TISHA Administration Ceftriaxone Sodium/Dextrose 1 gm in 50 mls @ 100 mls/hr 04/14/24 04:00 04/16/24 05:14 Rocephin IV Infused Q24H TISHA Infusion Vancomycin/PEG/NADA/Lysine/Water 1.25 gm in 250 mls @ 166.667 mls/hr 04/15/24 14:00 04/16/24 15:14 Vancocin Injection IVPB Infused Q24H TISHA Infusion Levalbuterol HCl 1.25 mg 04/15/24 10:11 04/16/24 14:37 Levalbuterol 1.25 Mg/3 Ml Upd Vial UPD 1.25 mg Q2H PRN PRN Administration Metoprolol Tartrate 25 mg 04/15/24 08:30 04/16/24 21:41 Metoprolol 25 Mg Tab PO 25 mg BID TISHA Administration Multivitamins 1 tab 04/15/24 08:30 04/16/24 08:43 Multivitamin Tab PO 04/21/24 08:31 1 tab QAM TISHA Administration Phenobarbital 100 mg 04/15/24 00:36 04/15/24 14:50 Phenobarbital 100 Mg Tab PO 100 mg Q15MIN PRN Administration Agitation Phenobarbital Sodium 130 mg 04/13/24 23:11 04/15/24 01:41 Phenobarbital 130 Mg/Ml Vial IVP 130 mg DIRECTED PRN Administration for mild anxiety/agitation Potassium Chloride 20 meq 04/15/24 08:30 04/16/24 08:43 Potassium Chloride 20 Meq Tabcr PO 20 meq DAILY TISHA Administration Sodium Chloride 0 ml 04/14/24 05:33 04/16/24 04:45 Normal Saline Flush 10 Ml Syr IVP 20 ml PRN PRN Administration Sodium Chloride 0 ml 04/16/24 07:45 04/16/24 16:39 Normal Saline Flush 10 Ml Syr IVP 20 ml PRN PRN Administration Thiamine HCl 100 mg 04/15/24 08:30 04/16/24 08:44 Thiamine 100 Mg Tab PO 04/21/24 08:31 100 mg QAM TISHA Administration Trazodone HCl 50 mg 04/16/24 21:38 04/16/24 21:41 Trazodone 50 Mg Tab PO 50 mg HS TISHA Administration IV IV Catheter Type [] Saline Lock IV Catheter Type [Right Hand] Saline Lock IV Catheter Type [Right Peripheral IV Antecubital] IV Catheter Gauge [] 20 IV Catheter Gauge [Right Hand] 18 IV Catheter Gauge [Right 18 Antecubital] Diagnostics 04/16/24 Range/Units 05:58 WBC 14.62 H (4.4-10.8) 10^3/uL RBC 4.40 (4.36-5.78) 10^6/uL Hgb 13.4 L (13.5-17.5) g/dL Hct 42.4 (40.0-50.0) % MCV 96 H (80-95) fL MCH 30.5 (27.0-33.0) pg MCHC 31.6 L (32.0-36.0) % RDW 16.7 H (11.8-14.1) % Plt Count 211 (130-400) 10^3/uL MPV 9.7 (8.0-11.0) fL PT 13.4 H (9.1-11.1) sec INR 1.4 H (0.9-1.1) Sodium 139 (136-145) mmol/L Potassium 4.6 D (3.5-5.1) mmol/L Chloride 105 (98-107) mmol/L Carbon Dioxide 20.6 L (21.0-32.0) mmol/L Anion Gap 13.4 H (3-11) mmol/L BUN 61 H (7-18) mg/dL Creatinine 2.0 H (0.70-1.30) mg/dL Est GFR (CKD-EPI 2020) 36.58 (mL/min/1.73m2) Glucose 113 H (74-106) mg/dL Calcium 7.7 L (8.5-10.1) mg/dL Total Bilirubin 0.43 (0.2-1.0) mg/dL AST 25 (15-37) U/L ALT 22 (16-63) U/L Alkaline Phosphatase 132 H (46-116) U/L Total Protein 6.7 (6.4-8.2) g/dL Albumin 2.5 L (3.4-5.0) g/dL 04/13/24 19:18 Blood Culture - Preliminary Blood NO GROWTH 72 HOURS 04/14/24 13:15 Blood Culture - Preliminary Blood NO GROWTH 48 HOURS 04/16/24 13:15 Blood Culture - Pending Blood 04/16/24 13:05 Blood Culture - Pending Blood 04/14/24 13:44 Blood Culture - Preliminary Blood Gram Positive Cocci 04/13/24 17:12 Blood Culture - Preliminary Blood Gram Positive Cocci 04/13/24 19:00 Urine Culture - Final Urine - Reflex from Ua Escherichia coli [id number] Documentation Fingerstick Glucose Start: 04/14/24 22:41 Freq: Status: Inactive Protocol: Activity Type Activity Date Activity User E-sign Co-sign Detail Recorded Client Recorded Date Recorded By Document 04/14/24 22:39 EMERY DAIMER(3) [id number] 04/14/24 22:41 JANG DAMINDYON(4) Intake and Output - 24 Hour Total 04/13/24 16:39 thru 04/16/24 18:50 Intake Total 3514.9747 Output Total 78782 Balance -6935.0253 Weight 116.3 kg Intake: IV 1374.9747 Oral 2040 Other 100 Output: Urine 01087 Other: Urine Color Yellow Urine Appearance Clear Comment 450 ml in urinal plus significant volume that missed urinal. Stool Size Moderate Stool Characteristics Liquid Voiding Methods Urinal Urinary Catheter Urinary Catheter Date of 04/13/24 Insertion [Uretheral (Power)] Time of insertion [Uretheral ( 18:00 Power)] Falls Risk Assessment History of Falls No History 04/14/24 02:20 Contributing Factors Impairments,Medications 04/14/24 02:20 Ambulatory Aids Uses ambulatory device + 04/14/24 02:20 Tubes/Lines With any additional score 04/14/24 02:20 Gait Evaluation W/any additional score 04/14/24 02:20 Cognition No cognitive impairment 04/14/24 02:20 Fall Total Score 76 04/14/24 02:20 Level of Risk Maximum Risk 04/14/24 02:20 Problems (Last Updated 06/11/23 @ 16:02 by Ivett Rich RN) SVT (supraventricular tachycardia) (Chronic) HFrEF (heart failure with reduced ejection fraction) (Acute) Acute respiratory failure with hypoxia (Acute) Severe sepsis (Acute) Alcoholic cirrhosis (Acute) Pleural effusion (Acute) Acute UTI (Acute) Anasarca (Acute) Notes 08/06/24 05:30 Nursing Notes by Samuel Gonzalez Nursing Note: Pt HR began to return to rapid afib >140. Last authorized IVP metoprolol dose given. Rhythm returned to stable a flutter at 122. Initialized on 04/15/24 05:30 - END OF NOTE 04/15/24 04:11 Nursing Notes by Samuel Gonzalez Nursing Note: Pt continues to refuse SpO2 monitoring at this time. Cardiac and BP monitoring still in place. Initialized on 04/15/24 04:11 - END OF NOTE 04/15/24 04:06 Nursing Notes by Samuel Gonzalez Nursing Note: Pt HR returned to rapid afib around 160. Another 2.5 mg IVP metoprolol delivered to good effect. HR is now 2:1 aflutter at 121 which appears to be baseline for this admission. Initialized on 04/15/24 04:06 - END OF NOTE 04/15/24 03:05 Nursing Notes by Samuel Gonzalez Nursing Note: Pt HR has converted to previous rhythm of 2:1 aflutter at 122 after receiving a total of 5 mg IVP metoprolol. Rhythm has been steady since second IVP admin. Initialized on 04/15/24 03:05 - END OF NOTE 04/14/24 23:50 Nursing Notes by Samuel Gonzalez Addendum entered by Samuel Gonzalez RN 04/15/24 00:22: Security presence was requested on the floor in anticipation of possible escalation of behavior when pt was heard threatening to kill RN who was in the room at the time. Pt was amenable to taking PO medication. Pt HR continues to be above 150 with a high of 187. Original Note: Nursing Note: Around 2330 RN was assessing pt when he requested albuterol. RN took note of the fact that his HR was escalating with a high of 165. MD was notified with new orders entered. RT was paged to perform EKG r/t rhythm change at which point pt became belligerent and very verbally abusive to staff with the appearance of possibly becoming physically violent. RN considered that behavior may be r/t detox and attempted to approach with PRN phenobarb. Meanwhile attempts were being made to explain to the pt that a nebulizer might be dangerous under the current circumstances. Pt continued to be irate and insisted that there's NOTHING WRONG WITH MY FUCKING HEART!. Pt was offered a nebulizer when he voiced understanding that it could worsen his condition. MD consulted and PO phenobarb request because pt may be more willing to it in that form with other medication. approved request. Initialized on 04/14/24 23:50 - END OF NOTE v v v v v v v v v Sending and/or Receiving Nurses: Please use comment section below to note any information pertinent to the patient hand-off not included above. Information / Comments: Report received from: Nella Otoole at 2030
[2024-04-17] VITALS (8 sets, daily range): BP systolic 90–128; BP diastolic 67–98; PULSE 61–125; RESP 14–22; TEMP 36.1–37.7; O2SAT 86–94
[2024-04-17] MEDS: cefTRIAXone 1 GM/50 ML BAG IV (03:15)
[2024-04-17] MEDS: Furosemide 100 MG/10 ML VIAL 80 MG IVP ×2 (07:47→16:31)
[2024-04-17] MEDS: Multivitamin TAB 1 TAB PO (07:49)
[2024-04-17] MEDS: Metoprolol 25 MG TAB PO (07:50)
[2024-04-17] MEDS: Thiamine 100 MG TAB PO (07:50)
[2024-04-17] MEDS: Folic Acid 1 MG TAB PO (07:50)
[2024-04-17 09:08] LABS: Vancomycin, Random 18.9 ug/mL
--- NOTE | 2024-04-17 09:44 | NUR.NOTE ---
Nursing Note: Patient continues to set off Yifan alarm, this nurse entered room and patient stated shut the fuck up and leave me alone Patient refuses to sit on [facility] alarm mat, patient is not currently on bed alarm r/t refusing the alarm at this time.
[2024-04-17 11:40] LABS: ALT 21 U/L (16-63); AST 24 U/L (15-37); Albumin 2.2 g/dL (3.4-5.0); Alkaline Phosphatase 139 U/L (46-116); Anion Gap 9.2 mmol/L (3-11); BUN 60 mg/dL (7-18); Bilirubin, Total 0.35 mg/dL (0.2-1.0); CO2 27.8 mmol/L (21.0-32.0); CREATININE 1.8 mg/dL (0.70-1.30); Calcium 7.3 mg/dL (8.5-10.1); Chloride 103 mmol/L (98-107); Estimated GFR 41.51 (mL/min/1.73m2); Glucose 156 mg/dL (74-106); Potassium 3.5 mmol/L (3.5-5.1); Sodium 140 mmol/L (136-145); Total Protein 6.4 g/dL (6.4-8.2)
[2024-04-17 11:45] LABS: RBC 3.86 10^6/uL (4.36-5.78); WBC 11.22 10^3/uL (4.4-10.8)
[2024-04-17 11:46] LABS: HCT 36.9 % (40.0-50.0); MCH 31.1 pg (27.0-33.0); MCHC 32.5 % (32.0-36.0); MCV 96 fL (80-95); MPV 9.8 fL (8.0-11.0); Platelet Count 189 10^3/uL (130-400); RDW 16.4 % (11.8-14.1)
--- NOTE | 2024-04-17 12:59 | W.PM.PROGNOT ---
Date of Service Date of service: 04/17/24 Time of Service: 12:59 Assessment and Plan Assessment and plan (1) Severe sepsis: Status: Acute Assessment and plan: -e. coli in Urine, Staph hominis in blood -initially given zosyn in the ED which was changed to CTX on admission and will be continued -repeat blood cultures also positive for GPCs -started vanc, will f/u results of blood cultures -no clear source of infection at this time, thought may be either urine or underlying PNA obscured by LLB atelectasis -prelim results groing Staph hominis; given that first two blood cultures were drawn within ~24hr of one another, and repeat cultures from two days later remains negative, patient may only need a total of 5-7 days of IV vanc for this bacteremia -will monitor final reaults of blood cultures from 04/16 to determine duration of antibiotic therapy (2) Acute UTI: Status: Acute Assessment and plan: -as noted above (3) Alcoholic cirrhosis: Status: Acute Assessment and plan: -known history, and patient continues to consume alcohol, MELD3.0 Score 19 -t. bili 1.4, INR 1.4, Cr 2, BUN 39 on admission -likley contributing factor of anasarca, ascites, and pleural effusion in combination with newly diagnosed HFrEF as noted above -patient has been on IV lasix 80mg BID with good UOP, will continue -would benefit from paracentesis but patient states that he would like to continue with diuresis instead Qualifiers: Ascites presence: with ascites Qualified Code(s): K70.31 - Alcoholic cirrhosis of liver with ascites (4) Anasarca: Status: Acute Assessment and plan: -as noted above (5) Pleural effusion: Status: Acute Assessment and plan: -seems small for right now -cont to observe. -may improve w/ diuresis. (6) Acute respiratory failure with hypoxia: Status: Acute Assessment and plan: -likely secondary to pleural effusion and significant anasarca/ascites as noted above and possible underlying PNA -Given body habitus, high risk for POLO - watch his O2 sats at night (7) HFrEF (heart failure with reduced ejection fraction): Status: Acute Assessment and plan: -TTE from 04/14 shows EF 25%, global hypokenesis of left ventricle and hypocontractile dilated right ventricle -likely contributing factor in anasarca and pleural effusion -being diuresed as noted above -patient will need left heart cath as outpatient -once patient is more stable will slowly add goal directed therapy including entresto, and GLP-2 inhibitor (8) SVT (supraventricular tachycardia): Status: Chronic Assessment and plan: -patient with periods of tachycardia, found to be SVT on EKG -started lopressor 25mg PO bid, will also have PRN IV 5mg lopressor for HR sustained >120bpm Subjective Subjective Interval history since last seen: Patient states that he is a little sore, and then that swelling in his lower legs feels a little worse, but that overall he knows that his swelling is continuing to improve. Exam Narrative Exam Narrative: chronically ill appearing disheveled gentleman laying in bed in no acute distress, AOx4, 2L NC in place, heart RRR, lung sounds diminished on the left about 1/2s up, clear on the right, abdomen distended with ongoing improvement, positive fluid wave, no tenderness to palpation, significant anasarca of the scrotum and swelling in bilateral LE up to tje mid asencio, which is a significant improvement as compared to previous days Objective Last Vital Signs Temp 98.8 F 04/17/24 11:14 Pulse 122 H 04/17/24 11:14 Resp 19 04/17/24 11:14 BP 104/80 04/17/24 11:14 Pulse Ox 89 L 04/17/24 11:44 Laboratory Results - last 24 hr 04/17/24 06:05 WBC 11.22 H RBC 3.86 L Hgb 12.0 L Hct 36.9 L MCV 96 H MCH 31.1 MCHC 32.5 RDW 16.4 H Plt Count 189 MPV 9.8 Sodium 140 Potassium 3.5 D Chloride 103 Carbon Dioxide 27.8 Anion Gap 9.2 BUN 60 H Creatinine 1.8 H Est GFR (CKD-EPI 2020) 41.51 Glucose 156 H Calcium 7.3 L Total Bilirubin 0.35 AST 24 ALT 21 Alkaline Phosphatase 139 H Total Protein 6.4 Albumin 2.2 L Random Vancomycin 18.9 PAWSS Have you Been Recently Intoxicated or Drunk Within the Last 30 days?: Yes Have you Ever Experienced Previous Episodes of Alcohol Withdrawal?: No Have you ever Experienced Withdrawal Seizures?: No Have you ever Experienced Delirium Tremens(DT)s?: No Have you ever undergone Alcohol Rehabilitation Treatment (i.e, inpt ot outpatient treatment programs)?: No Have you ever Experienced Blackouts?: No Have you ever Combined Alcohol with other Downers within the last 90 days?: No Have you ever Combined Alcohol with any other Substance of Abuse during the last 90 days?: No Positive Blood Alcohol level on Presentation? [PCS.BAL]: No Evidence of Increased Autonomic Activity (i.e. HR>120, tremor, sweating, agitation, nausea)?: No Result: 1 Time Spent with Patient Time Spent with Patient: >50 minutes Time was spent: preparing to see the patient(eg.review tests), obtaining and/or reviewing separately otained hiistory, ordering medications,tests, procedures, referring, communicating with other health patient care, indepentently interpreting results, counseling the patient and care coordination
[2024-04-17] MEDS: Potassium Chloride 20 MEQ TABCR PO (14:11)
[2024-04-17] MEDS: VANCOMYCIN/WATER (PEG) 1.25 GM/250 ML BAG IVPB (14:12)
--- NOTE | 2024-04-17 14:54 | PT.INNT ---
PT Notes Visit Reasons: Aden Baker was approached for skilled PT session x 3 in the morning in bed x2 and x1 seated in wheelchair and x 2 while seated in wheelchair in the PM all of which he declined. Nursing did report he participated in a shower. Samuel asked this PT to see him at 9 am tomorrow and he would be willing to participate with PT. Pt was not belligerent during his refusal. He stated he just could not do anything. His Nurse was present for final refusal and expressed encouragement however he continued to decline. Pt educatedd on role of PT to improve his strength and functional mobility. Pt's crutches remain in his room.
--- NOTE | 2024-04-17 15:12 | PDOC.CMPRO ---
Date of service: 04/17/24 Time of Service: 15:12 Care Management Progress Note Progress Note Text Progress Note Text: Samuel was sitting up in a wheelchair when CM met with him. He informed CM that he had asked for some V-8 juice and was waiting for it to be delivered. Samuel also reported that he is having pain and that his pain regimen is not effective. He stated he takes Tylenol, Ibuprofen and Aspirin and that none of them completely take the pain away. When asked where his pain is located, he cited his shoulder, hip, knee and head. Samuel also shared that he is very tired. He stated that he needs a lot of sleep and asked to be helped back to bed. Samuel does not currently have a PCP. He had 2 new patient appointments at [facility] that he failed to attend. CM contacted [facility] and they do not consider him an active patient at this time. Post-discharge Samuel will need to be scheduled with the T-doc electronics processor when he was admitted who happens to be Catherine Bowersy. Discharge Potential Discharge Needs: PCP F/U Appt Anticipated Barriers to Discharge: None Identified Patient/Family Education Needs: Review discharge instructions, discuss Ask Me Three Transportation: RCT Plan: Anticipate Samuel will be discharged home, possibly with new home health orders for PT, when medically stable. He will follow up with his designated T-doc appointment with [facility] and transport via RCT vs private vehicle. CM will follow and continue to assess for discharge needs. SDOH(Care Management) Screening Will the Patient Participate in the Screening?: Unable to obtain Social Determinants of Health Comments(SDOH Details): pt very hard to understand
[2024-04-17] MEDS: Normal Saline Flush 10 ML SYR IVP (16:31)
--- NOTE | 2024-04-17 16:35 | W.NUTRFU ---
Date of service: 04/17/24 Time of Service: 16:36 Nutrition Note NOTE: Samuel in medsurg room now after a stay in ICU for CHF, respiratory failure, sepsis, cirrhosis with ascites. His A1c was 5.7 8/6 - consistent with prediabetes. diuresis versus paracentesis to help address ascites per pet preference. Hx of etoh abuse. He was talking about how he was picking another one up as soon as he would put one down. Samuel down his own meal prep and shopping and fatigues easily - has inconsistent meals and eats convenience foods often - eating hotdogs with buns for the week prior to admission and feels this contributed to his admission. Per interview his food choices have been poor or known over the last 2.5 weeks and beer remained consistent choice. Pt educated on low sodium diet and stressed that this is important, as well as meeting his nutrition needs - agreed to chocolate boost ONS BID this admission for an easy source of protein and extra kcals and nutrition. He did take my card so we could work in the outpatient setting if he desires to work towards better nutrition. Time Spent in Nutritional Counseling and Treatment: 10 min
[2024-04-17] MEDS: Apixaban 5 MG TAB PO (19:34)
[2024-04-17] MEDS: Metoprolol 25 MG TAB 50 MG PO (19:34)
[2024-04-17] MEDS: traZODone 50 MG TAB PO (19:38)
[2024-04-17] MEDS: Acetaminophen 325 MG TAB 650 MG PO (21:33)
[2024-04-18] MEDS: cefTRIAXone 1 GM/50 ML BAG IV (03:37)
[2024-04-18 04:58] VITALS: BP 146/90; PULSE 100; RESP 18; TEMP 36.5; O2SAT 92
[2024-04-18 06:51] LABS: HCT 40.5 % (40.0-50.0); HGB 12.6 g/dL (13.5-17.5); MCHC 31.1 % (32.0-36.0); MCV 96 fL (80-95); MPV 9.4 fL (8.0-11.0); Platelet Count 195 10^3/uL (130-400); RDW 16.2 % (11.8-14.1); RDW-SD 56.9 fL; WBC 10.87 10^3/uL (4.4-10.8)
[2024-04-18 07:13] LABS: ALT 17 U/L (16-63); AST 22 U/L (15-37); Albumin 2.6 g/dL (3.4-5.0); Alkaline Phosphatase 149 U/L (46-116); Anion Gap 5.8 mmol/L (3-11); BUN 54 mg/dL (7-18); Bilirubin, Total 0.72 mg/dL (0.2-1.0); CO2 34.2 mmol/L (21.0-32.0); CREATININE 1.7 mg/dL (0.70-1.30); Calcium 7.9 mg/dL (8.5-10.1); Chloride 102 mmol/L (98-107); Estimated GFR 44.46 (mL/min/1.73m2); Glucose 105 mg/dL (74-106); Potassium 3.6 mmol/L (3.5-5.1); Sodium 142 mmol/L (136-145); Total Protein 7.1 g/dL (6.4-8.2)
[2024-04-18 08:00] LABS: Vancomycin, Random 16.7 ug/mL
[2024-04-18] MEDS: Furosemide 100 MG/10 ML VIAL 80 MG IVP ×2 (08:22→16:24)
[2024-04-18] MEDS: Multivitamin TAB 1 TAB PO (08:26)
[2024-04-18] MEDS: Apixaban 5 MG TAB PO ×2 (08:26→19:32)
[2024-04-18] MEDS: Thiamine 100 MG TAB PO (08:27)
[2024-04-18] MEDS: Metoprolol 25 MG TAB 50 MG PO (08:27)
[2024-04-18] MEDS: Potassium Chloride 20 MEQ TABCR PO (08:27)
[2024-04-18] MEDS: Folic Acid 1 MG TAB PO (08:27)
--- NOTE | 2024-04-18 11:41 | PT.INTREAT ---
PT Notes Visit Reasons: [facility] Treatment [facility] Date: April 18, 2024 PRECAUTIONS:IV R UE SUBJECTIVE: I am really tired I just want to sleep but I will do it. It is all this medication that makes me have to use the bathroom that is making me so upset OBJECTIVE: seated at bedside with gown on. Upon entering room pt was talking to himself. He initially was using diversional tactics for participating in skilled PT session. He requested this therapist to return in 10 minutes stating he would participate then which he did. He refused to have his gown tied to cover his back. He is easily agitated and fearful when people are too close to him when he is standing.? PAIN: I hurt all over. Therapeutic Activities (54420g[]): Direct one-on-one instruction in dynamic activities to improve functional performance. ? BED MOBILITY/TRANSFERS? Rolling L/R: Independent Supine-sit: Independent with head of bed elevated ? Sit-supine: Min assist for lower extremities? Sit-stand: Independent ? Stand-sit: Independent ? Bed-Chair: Standby assist with axillary crutches ? Chair-bed: Standby assist with axillary crutches Provided skilled cues and instruction on performance and technique throughout. ? Ambulation? Assistive Device: Axillary crutches ? Weight bearing: Full Assist: Standby assist? Distance: 60 feet with 2 turns 90 and 180 degrees? Deviation: 4 point gait pattern with intermittent 3 point pattern while moving through doorways? STAIRS: Refused? ASSESSMENT:? Samuel demonstrates impulsivity during functional tasks with and without axillary crutches. He refuses to allow hands-on and use of a gait belt during transfers or ambulation with axillary crutches. He demonstrates proximal musculature weakness of bilateral lower extremities. He utilizes a 4 point gait pattern with axillary crutches. He refused to attempt stairs on this occasion. He requires encouragement to participate in session and frequent reapproaching. He is resistant and can become agitated with cueing for safety proper use of crutches i.e. not leaning crutches onto axilla. Of note, he would benefit from adjustment in hide of axillary crutches however during this session he was not open to having any adjustments made. He was unable to state where or when he received the crutches. PLAN: Continue PT for transfers , balance, gait with B axillary crutches and stairs TREATMENT CODE/TIME: 67706/ [id number] DISCHARGE RECOMMENDATION: Home with services
--- NOTE | 2024-04-18 12:03 | PGE_ITS ---
Date of Service Date of service: 04/18/24 Time of Service: 12:03 Assessment and Plan Assessment and plan (1) Severe sepsis: Status: Acute Assessment and plan: -e. coli in Urine, Staph hominis in blood -initially given zosyn in the ED which was changed to CTX on admission and will be continued -repeat blood cultures also positive for GPCs -started vanc, will f/u results of blood cultures -no clear source of infection at this time, thought may be either urine or underlying PNA obscured by LLB atelectasis -prelim results growing Staph hominis; given that first two blood cultures were drawn within ~24hr of one another, and repeat cultures from two days later remains negative, patient may only need a total of 5-7 days of IV vanc for this bacteremia -will monitor final results of blood cultures from 04/16 to determine duration of antibiotic therapy (2) Acute UTI: Status: Acute Assessment and plan: -as noted above (3) Alcoholic cirrhosis: Status: Acute Assessment and plan: -known history, and patient continues to consume alcohol, MELD3.0 Score 19 -t. bili 1.4, INR 1.4, Cr 2, BUN 39 on admission -likley contributing factor of anasarca, ascites, and pleural effusion in combination with newly diagnosed HFrEF as noted above -patient has been on IV lasix 80mg BID with good UOP, will continue -would benefit from paracentesis but patient states that he would like to continue with diuresis instead Qualifiers: Ascites presence: with ascites Qualified Code(s): K70.31 - Alcoholic cirrhosis of liver with ascites (4) Anasarca: Status: Acute Assessment and plan: -as noted above (5) Pleural effusion: Status: Acute Assessment and plan: -seems small for right now -cont to observe. -may improve w/ diuresis. (6) Acute respiratory failure with hypoxia: Status: Acute Assessment and plan: -likely secondary to pleural effusion and significant anasarca/ascites as noted above and possible underlying PNA -Given body habitus, high risk for POLO - watch his O2 sats at night (7) HFrEF (heart failure with reduced ejection fraction): Status: Acute Assessment and plan: -TTE from 04/14 shows EF 25%, global hypokenesis of left ventricle and hypocontractile dilated right ventricle -likely contributing factor in anasarca and pleural effusion -being diuresed as noted above -patient will need left heart cath as outpatient -once patient is more stable will slowly add goal directed therapy including entresto, and GLP-2 inhibitor (8) SVT (supraventricular tachycardia): Status: Chronic Assessment and plan: -patient with periods of tachycardia, found to be SVT on EKG -started lopressor 25mg PO bid, increased to 100mg BID, will also have PRN IV 5mg lopressor for HR sustained >120bpm Subjective Subjective Interval history since last seen: Patient states that he is still feeling weak and tired but acknowledges that he continues to improve. Exam Narrative Exam Narrative: chronically ill appearing disheveled gentleman laying in bed in no acute distress, AOx4, 2L NC in place, heart RRR, lung sounds diminished on the left about 1/2s up, clear on the right, abdomen distended with ongoing improvement, positive fluid wave, no tenderness to palpation, significant anasarca of the scrotum and swelling in bilateral LE up to tje mid asencio, which is a significant improvement as compared to previous days Objective Last Vital Signs Temp 97.7 F 04/18/24 04:58 Pulse 100 H 04/18/24 04:58 Resp 18 04/18/24 04:58 BP 146/90 H 04/18/24 04:58 Pulse Ox 92 04/18/24 04:58 Laboratory Results - last 24 hr 04/18/24 06:38 WBC 10.87 H RBC 4.20 L Hgb 12.6 L Hct 40.5 MCV 96 H MCH 30.0 MCHC 31.1 L RDW 16.2 H Plt Count 195 MPV 9.4 Sodium 142 Potassium 3.6 Chloride 102 Carbon Dioxide 34.2 H Anion Gap 5.8 BUN 54 H Creatinine 1.7 H Est GFR (CKD-EPI 2020) 44.46 Glucose 105 Calcium 7.9 L Total Bilirubin 0.72 AST 22 ALT 17 Alkaline Phosphatase 149 H Total Protein 7.1 Albumin 2.6 L Random Vancomycin 16.7 PAWSS Have you Been Recently Intoxicated or Drunk Within the Last 30 days?: Yes Have you Ever Experienced Previous Episodes of Alcohol Withdrawal?: No Have you ever Experienced Withdrawal Seizures?: No Have you ever Experienced Delirium Tremens(DT)s?: No Have you ever undergone Alcohol Rehabilitation Treatment (i.e, inpt ot outpatient treatment programs)?: No Have you ever Experienced Blackouts?: No Have you ever Combined Alcohol with other Downers within the last 90 days?: No Have you ever Combined Alcohol with any other Substance of Abuse during the last 90 days?: No Positive Blood Alcohol level on Presentation? [PCS.BAL]: No Evidence of Increased Autonomic Activity (i.e. HR>120, tremor, sweating, agitation, nausea)?: No Result: 1 Time Spent with Patient Time Spent with Patient: >50 minutes Time was spent: preparing to see the patient(eg.review tests), obtaining and/or reviewing separately otained hiistory, ordering medications,tests, procedures, referring, communicating with other health home health aide caregiver, indepentently interpreting results, counseling the patient and care coordination
[2024-04-18] MEDS: Normal Saline Flush 10 ML SYR IVP ×2 (14:28→16:24)
[2024-04-18] MEDS: VANCOMYCIN/WATER (PEG) 1.5 GM/300 ML BAG IV (14:30)
--- NOTE | 2024-04-18 14:46 | PT.INTREAT ---
PT Notes Visit Reasons: [facility] Inpatient Physical Therapy Treatment Note [facility] Date: April 18, 2024 PRECAUTIONS:IV R UE SUBJECTIVE: Samuel is agreeable to PT intervention, but declines ambulation or sitting to EOB. States that he is sore all over from walking this morning. OBJECTIVE: Observation: Resting in bed, partial left sidelying. Patient cooperative but requires redirection frequently throughout session. Multiple attempts made to encourage standing or sitting to EOB, although all declined. ? Therapeutic Activities (98347o8): Direct one-on-one instruction in dynamic activities to improve functional performance. ? BED MOBILITY/TRANSFERS? Rolling L/R: Independent Scooting up in bed: independent Ambulation?: Refused ? STAIRS: Refused? Therapeutic Exercises (70170b8): Patient agreeable to instruction in HEP for completion over the weekend. He requires frequent cues for positioning, as he rolls back onto left side during completion of exercises. Instructed in the following exercises: ? ankle pumps 10x each quad sets 10x each heel slides 10x each partial bridge 3x SAQ 5x right only Discussed expectations for weekend, with patient provided with information regarding PT goals, who to expect, etc. ASSESSMENT:? Samuel reporting increased fatigue and discomfort after ambulating this am. Encourage increased time out of bed to allow for functional gains. Instructed in HEP and provided with written instructions for completion between PT sessions. Responds well to participating in treatment planning. PLAN: Continue PT for transfers , balance, gait with B axillary crutches and stairs TREATMENT CODE/TIME: 61603 ([id number]) DISCHARGE RECOMMENDATION: Home with services Ester Benites, PT, DPT [place] [facility]
[2024-04-18 15:28] VITALS: BP 113/81; PULSE 127; RESP 19; TEMP 36.8; O2SAT 90
--- NOTE | 2024-04-18 17:35 | PDOC.CMPRO ---
Date of service: 04/18/24 Time of Service: 17:36 Care Management Progress Note Progress Note Text Progress Note Text: Samuel was lying in bed when CM met with him. He stated that he is doing ok, but is feeling weak and has had to urinate frequently, due to the medication he is on. He expressed some concern about his phone, as he left his pin inserter at home. He also asked about housing; CM will refer to the [place] on aging for him to review options, including senior housing and/or affordable housing. Samuel has been working with PT, and is doing well, standby assist, per report. Per MD, he continues to diurese, and is making improvement, but is not medically ready for discharge today. CM will continue to follow. Discharge Potential Discharge Needs: PCP F/U Appt (will need T doc follow up) Anticipated Barriers to Discharge: None Identified Patient/Family Education Needs: Review discharge instructions, discuss Ask Me Three Transportation: RCT Plan: Anticipate Samuel will be discharged home, possibly with new home health orders for PT, when medically stable. He will follow up with his designated T-doc appointment with [facility] and transport via RCT vs private vehicle. CM will follow and continue to assess for discharge needs. SDOH(Care Management) Screening Will the Patient Participate in the Screening?: Unable to obtain Social Determinants of Health Comments(SDOH Details): pt very hard to understand
[2024-04-18] MEDS: Metoprolol 50 MG TAB 100 MG PO (19:32)
[2024-04-18] MEDS: traZODone 50 MG TAB PO (19:32)
[2024-04-18 19:36] VITALS: BP 112/83; PULSE 64; RESP 19; TEMP 37.2; O2SAT 91
[2024-04-18 23:00] VITALS: BP 103/66; PULSE 125; RESP 32; TEMP 36.4; O2SAT 90
[2024-04-19] VITALS (7 sets, daily range): BP systolic 108–120; BP diastolic 80–95; PULSE 108–120; RESP 2–20; TEMP 36.8; O2SAT 92–98
[2024-04-19] MEDS: cefTRIAXone 1 GM/50 ML BAG IV (04:33)
[2024-04-19 06:39] LABS: HCT 39.2 % (40.0-50.0); MCH 29.9 pg (27.0-33.0); MCHC 30.6 % (32.0-36.0); MCV 98 fL (80-95); MPV 9.9 fL (8.0-11.0); Platelet Count 230 10^3/uL (130-400); RBC 4.01 10^6/uL (4.36-5.78); RDW 16.5 % (11.8-14.1); WBC 8.97 10^3/uL (4.4-10.8)
[2024-04-19 06:49] LABS: Anion Gap 8.2 mmol/L (3-11); BUN 48 mg/dL (7-18); CO2 34.8 mmol/L (21.0-32.0); CREATININE 1.4 mg/dL (0.70-1.30); Calcium 7.9 mg/dL (8.5-10.1); Chloride 98 mmol/L (98-107); Estimated GFR 56.13 (mL/min/1.73m2); Glucose 164 mg/dL (74-106); Potassium 3.5 mmol/L (3.5-5.1); Sodium 141 mmol/L (136-145)
[2024-04-19] MEDS: Spironolactone 25 MG TAB PO ×2 (08:29→19:16)
[2024-04-19] MEDS: Potassium Chloride 20 MEQ TABCR PO (08:29)
[2024-04-19] MEDS: Lisinopril 10 MG TAB PO (08:29)
[2024-04-19] MEDS: Thiamine 100 MG TAB PO (08:29)
[2024-04-19] MEDS: Furosemide 80 MG TAB PO (08:29)
[2024-04-19] MEDS: Apixaban 5 MG TAB PO ×2 (08:30→19:16)
[2024-04-19] MEDS: Multivitamin TAB 1 TAB PO (08:30)
[2024-04-19] MEDS: Metoprolol 50 MG TAB 100 MG PO ×2 (08:30→19:15)
[2024-04-19] MEDS: Folic Acid 1 MG TAB PO (08:30)
--- NOTE | 2024-04-19 09:03 | PT.INTREAT ---
PT Notes Visit Reasons: [facility] Treatment Note [facility] Date: 04/19/2024 SUBJECTIVE: I'm tired, I'm fat, I'm bloated, I'm in pain, I just want to sleep. Can't you understand that? OBJECTIVE: ? PAIN: States pain is everywhere. ? BED MOBILITY/TRANSFERS? Sit-supine: stand by assist? Sit-stand: stand by assist ? Stand-sit: stand by assist? GAIT? Assistive Device: axillary crutches ? Weight bearing: FWB Assist: attempted CGA but patient states don't touch me? Distance:? 100 ft ? Deviation: 4 point gait cycle observed with use observed, attempted to teach 2 point gait but refused ? Therapeutic Exercises (47980r6): Direct one-on-one instruction in therapeutic exercises to develop strength, endurance, range of motion and flexibility. ? Exercises - pt participated in: LAQs x10, seated hip flex x10, seated calf raises x10 bilaterally -Provided skilled instruction in proper exercise performance ASSESSMENT:?Pt did end up participating in PT treatment session today but needed a lot of encouragement. He does not accept any education for improved ambulation or safety which makes him a risk for falling. He demonstrates significant impulsivity on his feet. He does not use the axillary crutches appropriately but he did not want to learn about the proper way to use them. He will continue to benefit from PT services to encourage and promote mobility to help him gain the functional strength he will need to return home. PLAN: Continue encouraging movement TREATMENT CODE/TIME: Ther Ex (98899f8) - 18 min DISCHARGE RECOMMENDATION: D/c to home w/HH PT
[2024-04-19] MEDS: Normal Saline Flush 10 ML SYR IVP ×2 (14:01→15:41)
[2024-04-19] MEDS: VANCOMYCIN/WATER (PEG) 1.5 GM/300 ML BAG IV (14:01)
--- NOTE | 2024-04-19 14:08 | W.PM.PROGNOT ---
Date of Service Date of service: 04/19/24 Time of Service: 14:08 Assessment and Plan Assessment and plan (1) Severe sepsis: Status: Acute Assessment and plan: -Met criteria for severe sepsis on admission, has improved with normalization of WBC -E. coli in urine likely source, pansenitive. Was on Pip/tazo in ED and CTX since. -Staph hominis in blood 04/13 and 04/14, has been on vancomycin. Cultures 04/16 NGTD. No clear source, lungs are possible, but he is improving. -Given that first two blood cultures were drawn within ~24hr of one another, and repeat cultures from two days later remains negative, patient may only need a total of 5-7 days of IV vanc for this bacteremia (2) Acute UTI: Status: Acute Assessment and plan: -as noted above (3) Alcoholic cirrhosis: Status: Acute Assessment and plan: -known history, and patient continues to consume alcohol, MELD3.0 Score 19 with t. bili 1.4, INR 1.4, Cr 2, BUN 39 on admission -likley contributing factor of anasarca, ascites, and pleural effusion in combination with newly diagnosed HFrEF as noted above -patient has been on IV lasix 80mg BID with good urine output, changed to 80mg oral with addition of spironolactone today with less u/a. Will go back to IV furosemide as I still think he needs diuresis, continue spironolactone and monitor renal function, which is better today. -would benefit from paracentesis but patient states that he would like to continue with diuresis instead -he was not willing to engage a discussion of his prognosis let alone alcohol cessation today. Qualifiers: Ascites presence: with ascites Qualified Code(s): K70.31 - Alcoholic cirrhosis of liver with ascites (4) Pleural effusion: Status: Acute Assessment and plan: -seems small for right now -cont to observe. -may improve w/ diuresis. (5) Acute respiratory failure with hypoxia: Status: Acute Assessment and plan: -likely secondary to pleural effusion and significant anasarca/ascites as noted above and possible underlying PNA. Has improved. -Given body habitus, high risk for POLO - watch his O2 sats at night (6) HFrEF (heart failure with reduced ejection fraction): Status: Acute Assessment and plan: -TTE from 04/14 shows EF 25%, global hypokenesis of left ventricle and hypocontractile dilated right ventricle (possibly from PE related pHTN) Global hypokenesis may also be alcoholic. -likely contributing factor in anasarca and pleural effusion -being diuresed as noted above -patient will need left heart cath as outpatient -once patient is more stable will slowly add goal directed therapy including entresto, and GLP-2 inhibitor (7) SVT (supraventricular tachycardia): Status: Chronic Assessment and plan: -patient with periods of tachycardia, found to be SVT vs atrial fibrillation on EKG -started lopressor 25mg PO bid, increased to 100mg BID, pulse still high. -He is on apixaban. (8) Altered mental status: Status: Acute Assessment and plan: Mild alteration evident today, though difficulty to interpret if he is just being abrasive and tired or if true MS changes. He is at risk of encephalopathy, get ammonia wiht labs. Subjective Subjective Patient reports: denies vomiting, shortness of breath or fever Interval history since last seen: Denies complaints. States he is tired and just wants to be left alone. He isn't hungry, didn't touch his lunch. Per RN notes he vomited this morning. He is currently minimally cooperative to questioning, has outbursts of abusive threats when his general state of health is discussed. Exam Narrative Exam Narrative: chronically ill appearing disheveled gentleman laying in bed in no acute distress, sleepy but arouses to alert and verbally abusive. Oriented to self and time but states he is in [place]. Heart RRR, no murmur. Lung sounds diminished on the left about 1/4 up, clear on the right, abdomen distended, positive fluid wave, no tenderness to palpation. Bilateral LE edema to the mid asencio. Objective Last Vital Signs Temp 36.8 C 04/19/24 12:15 Pulse 108 H 04/19/24 12:15 Resp 17 04/19/24 12:15 BP 115/84 04/19/24 12:15 Pulse Ox 93 04/19/24 12:15 Laboratory Results - last 24 hr 04/19/24 06:14 WBC 8.97 RBC 4.01 L Hgb 12.0 L Hct 39.2 L MCV 98 H MCH 29.9 MCHC 30.6 L RDW 16.5 H Plt Count 230 MPV 9.9 Sodium 141 Potassium 3.5 Chloride 98 Carbon Dioxide 34.8 H Anion Gap 8.2 BUN 48 H Creatinine 1.4 H Est GFR (CKD-EPI 2020) 56.13 Glucose 164 H Calcium 7.9 L PAWSS Have you Been Recently Intoxicated or Drunk Within the Last 30 days?: Yes Have you Ever Experienced Previous Episodes of Alcohol Withdrawal?: No Have you ever Experienced Withdrawal Seizures?: No Have you ever Experienced Delirium Tremens(DT)s?: No Have you ever undergone Alcohol Rehabilitation Treatment (i.e, inpt ot outpatient treatment programs)?: No Have you ever Experienced Blackouts?: No Have you ever Combined Alcohol with other Downers within the last 90 days?: No Have you ever Combined Alcohol with any other Substance of Abuse during the last 90 days?: No Positive Blood Alcohol level on Presentation? [PCS.BAL]: No Evidence of Increased Autonomic Activity (i.e. HR>120, tremor, sweating, agitation, nausea)?: No Result: 1 Time Spent with Patient Time Spent with Patient: >50 minutes Time was spent: preparing to see the patient(eg.review tests), obtaining and/or reviewing separately otained hiistory, ordering medications,tests, procedures, referring, communicating with other health manager respiratory care, indepentently interpreting results and care coordination
[2024-04-19] MEDS: Furosemide 100 MG/10 ML VIAL 80 MG IVP (15:39)
[2024-04-19] MEDS: traZODone 50 MG TAB PO (19:16)
[2024-04-19] MEDS: Levalbuterol 1.25 MG/3 ML UPD VIAL UPD (20:20)
--- NOTE | 2024-04-19 23:45 | NUR.NOTE ---
Nursing Note: This RADIO ELECTRONICS TECHNICIAN went into patients room for 23:00 to obtain vitals as delegated per RN, patient stated: who the fuck are you and why the fuck are you in my room waking me up at 11 oclock at night. RADIO ELECTRONICS TECHNICIAN responded, stating: sir, you are scheduled to have 4 hour vital sign checks as that is what the doctor ordered. RADIO ELECTRONICS TECHNICIAN asked patient permission to obtain blood pressure again to which patient stated: just do it put the numbers down. Upon attempting to apply cuff, patient swatted at this RADIO ELECTRONICS TECHNICIAN. Patient then stated: you don't know anything get the fuck out of my room RN notified of patient refusal and behavior.
--- NOTE | 2024-04-19 23:46 | NUR.NOTE ---
Nursing Note: IT COMMUNICATIONS MANAGER entered pt's room to take q4h VS. IT COMMUNICATIONS MANAGER D.S. stated that pt swung at her and was cussing. Pt refused VS. This nurse entered pt's room 10 minutes later with fellow RN Dev. Pt stated he would not speak with nursing staff unless the door was closed. pt yelled at both nursing staff for entering his room and being woken up. Pt yelled and cussed at B.A. to leave the room. B.A. was on standby outside of doorway, out of sight with door cracked. Even with B.A. out of the room, pt demanded the door be shut before talking with nursing staff. Nursing staff explained to pt that his VS are scheduled for every 4 hours per his provider. Pt stated he did not care and that nobody should be waking him up in the middle of the night. Nursing staff explained that there are risks in refusing VS, and that with his diagnoses, it is important to monitor his bp, hr, and oxygen especially. Pt raised his fist and stated I am going to knock you the fuck out. Nursing staff stated that that behavior was not acceptable or appropriate and cannot happen. Nursing staff informed pt that if that behavior continued, security would need to be called. Pt stated that he did not care and that he does not want to be bothered at all during the night by anyone for any reason. Pt had been informed around 194 that his VS would be occurring every 4 hours, and pt agreed verbally. CC and MD notified CC also explained to pt ramifications of declining interventions and increased risk of negative outcomes.
--- NOTE | 2024-04-20 | DI.RAD_ITS ---
Exam(s) XR CHEST 2V PA LATERAL EXAM: XR CHEST 2V PA LATERAL CLINICAL HISTORY: new wheeze, smoker admitted with CHF. TECHNIQUE: 2D digital imaging was performed. COMPARISON: CR,XR XR PORTABLE CHEST AP from 10/17/2023 CR,XR XR PORTABLE CHEST AP from 04/13/[address] CHEST/ABD/PEL WO from 04/13/2024 FINDINGS: 2 views: Heart size unchanged. Mediastinum is not widened. There is no radiographic improvement in the left pleural effusion and volume loss left lower lobe. M ild increased markings-infiltrate also noted in the right lung base. Significantly smaller right ple ural effusion. IMPRESSION: No improvement. Persistent left larger than right pleural effusions and persistent infiltrates in th e lung bases. DATA REPOSITORY: RADIATION DOSE DELIVERED:
[2024-04-20 03:10] VITALS: BP 110/76; PULSE 118; RESP 18; TEMP 36.7; O2SAT 91
[2024-04-20] MEDS: cefTRIAXone 1 GM/50 ML BAG IV (04:50)
[2024-04-20 06:41] LABS: Ammonia 37 umol/L (11-32)
[2024-04-20 06:55] LABS: ALT 28 U/L (16-63); AST 33 U/L (15-37); Albumin 2.2 g/dL (3.4-5.0); Alkaline Phosphatase 141 U/L (46-116); Anion Gap 5.5 mmol/L (3-11); BUN 47 mg/dL (7-18); Bilirubin, Total 0.44 mg/dL (0.2-1.0); CO2 34.5 mmol/L (21.0-32.0); CREATININE 1.2 mg/dL (0.70-1.30); Calcium 7.9 mg/dL (8.5-10.1); Chloride 98 mmol/L (98-107); Estimated GFR 67.53 (mL/min/1.73m2); Glucose 97 mg/dL (74-106); Sodium 138 mmol/L (136-145); Total Protein 6.6 g/dL (6.4-8.2)
[2024-04-20 06:58] LABS: INR 1.2 (0.9-1.1); Prothrombin Time 11.7 sec (9.1-11.1)
[2024-04-20 07:35] VITALS: BP 90/70; PULSE 120; RESP 18; TEMP 36.4; O2SAT 93
[2024-04-20] MEDS: Furosemide 100 MG/10 ML VIAL 80 MG IVP (07:37)
[2024-04-20] MEDS: Spironolactone 25 MG TAB PO ×2 (07:38→19:34)
[2024-04-20] MEDS: Potassium Chloride 20 MEQ TABCR PO (07:38)
[2024-04-20] MEDS: Apixaban 5 MG TAB PO (07:38)
[2024-04-20] MEDS: Folic Acid 1 MG TAB PO (07:38)
[2024-04-20] MEDS: Thiamine 100 MG TAB PO (07:38)
[2024-04-20] MEDS: Multivitamin TAB 1 TAB PO (07:38)
[2024-04-20] MEDS: Normal Saline Flush 10 ML SYR IVP ×3 (07:38→19:36)
[2024-04-20] MEDS: Metoprolol 50 MG TAB 150 MG PO ×2 (09:34→19:35)
[2024-04-20] MEDS: Lisinopril 10 MG TAB PO (09:35)
--- NOTE | 2024-04-20 10:18 | PT.INTREAT ---
PT Notes Visit Reasons: [facility] Treatment Note [facility] Date: 04/20/24 SUBJECTIVE: Pt states that he is feeling less bloated today compared to yesterday. He is currently frustrated because he is waiting on some soup that he asked for. OBJECTIVE: ? PAIN: Pt notes that he feels stiff all over today. He is getting some cramps in his arm that he thinks is from the bed. VITALS: Monitored by nursing, spO2 checked mid session and satting at 100% Therapeutic Activities (97100e8): Direct one-on-one instruction in dynamic activities to improve functional performance. ? BED MOBILITY/TRANSFERS? Rolling L/R: stand by assist Supine-sit: stand by assist? Sit-supine: stand by assist ? Sit-stand: stand by assist ? Stand-sit: stand by assist ? GAIT? Assistive Device: Rolling walker ? Weight bearing: FWB Assist: CGA ? Distance:? 80 ft ? Deviation: Impulsive, discontinued RW use half way due to not wanting to use it any more and walked w/o an AD even though he was heavily encouraged to use it. ? ASSESSMENT:? Pt remains a high risk for falls due to his impulsivity and unsteadiness on his feet. He has very poor safety awareness. He did agree to try using the RW today but did not like it and decided to discontinue it half way spontaneously. He is very noncompliant with education and information being provided to him in regards to his safety and overall health. He will continue to benefit from PT services to encourage mobility and safety. PLAN: Continue encouraging movement TREATMENT CODE/TIME: Ther Act (37413c3) - 17 min DISCHARGE RECOMMENDATION: D/c with home health PT
--- NOTE | 2024-04-20 12:12 | PGE_ITS ---
Date of Service Date of service: 04/20/24 Time of Service: 12:12 Assessment and Plan Assessment and plan (1) Severe sepsis: Status: Acute Assessment and plan: -Met criteria for severe sepsis on admission, has improved with normalization of WBC -E. coli in urine likely source, pansenitive. Was on Pip/tazo in ED and CTX since. -Staph hominis in blood 04/13 and 04/14, has been on vancomycin. Cultures 04/16 NGTD. No clear source, lungs are possible, but he is improving. -Given that first two blood cultures were drawn within ~24hr of one another, and repeat cultures from two days later remains negative, patient may only need a total of 5-7 days of IV vanc for this bacteremia (see citation) -At this point reviewing sensitivities, cipro would cover both. Will change to cipro and continue treating staph given some uncertainty of the best duration of treatment. Alfredito ALVAREZ et al. Effect of algorithm-based therapy vs usual care on clinical success and serious adverse events in patients with staphylococcal bacteremia: A randomized clinical trial.?CUCA?2018 Jun 04; [id number]) (2) Acute UTI: Status: Acute Assessment and plan: -as noted above, this has been treated. (3) Alcoholic cirrhosis: Status: Acute Assessment and plan: -known history, and patient continues to consume alcohol, MELD3.0 Score 19 with t. bili 1.4, INR 1.4, Cr 2, BUN 39 on admission. This has improved during his stay. -likley contributing factor of anasarca, ascites, and pleural effusion in combination with newly diagnosed HFrEF as noted above -patient has been on IV lasix 80mg BID with good urine output, changed to 80mg oral with addition of spironolactone. -would benefit from paracentesis, now willing to discuss with surgery. -We did discuss his guarded prognosis today, he understands need for cessation of alcohol. Improvement in liver and renal function off alcohol this week is a good sign. Qualifiers: Ascites presence: with ascites Qualified Code(s): K70.31 - Alcoholic cirrhosis of liver with ascites (4) Pleural effusion: Status: Acute Assessment and plan: -seems small for right now -cont to observe. -may improve w/ diuresis. (5) Acute respiratory failure with hypoxia: Status: Acute Assessment and plan: -likely secondary to pleural effusion and significant anasarca/ascites as noted above and possible underlying PNA. Has improved. -Given body habitus, high risk for POOL - watch his O2 sats at night (6) HFrEF (heart failure with reduced ejection fraction): Status: Acute Assessment and plan: -TTE from 04/14 shows EF 25%, global hypokenesis of left ventricle and hypocontractile dilated right ventricle (possibly from PE related pHTN) Global hypokenesis may also be alcoholic. -likely contributing factor in anasarca and pleural effusion -being diuresed as noted above -patient will need heart cath as outpatient -once patient is more stable will slowly add goal directed therapy including entresto, and SGLT2i (7) SVT (supraventricular tachycardia): Status: Chronic Assessment and plan: -patient with periods of tachycardia, found to be SVT vs atrial fibrillation on EKG. Last EKG looks more like Afib. He has a known h/o afib. -started lopressor 25mg PO bid, increased to 100mg BID, pulse still high, increased to 150mg BID -He is on apixaban. (8) Altered mental status: Status: Acute Assessment and plan: Mild alteration evident 04/19, better today. Ammonia was mildly high. No overt encephalopathy now so will not start lactulose. (9) ETOH abuse: Assessment and plan: Discussed AA, medications, other supports. he doesn't think he needs this now. (10) Wheeze: Status: Acute Assessment and plan: New. He is a smoker and likely has COPD. He may benefit from steroids. Start with CXR. Some rhinorrhea so get COVID. Subjective Subjective Patient reports: feels better and voiding w/o difficulty; denies diarrhea, nausea, vomiting or fever Interval history since last seen: He is feeling better today. Swelling in scrotum has resolved. Legs feel less swollen. He is urinating a lot. Abdomen still feels tense, but not in pain. He can't eat a lot or drink a lot at once. He still doesn't want fluid drained with a needle at this point. He didn't remember meeting me yesterday. Later in afternoon he starting feeling more SOB. Thinks he is peeing less. Exam Narrative Exam Narrative: chronically ill appearing, sitting up in chair, in no acute distress, alert and oriented x 4 today. Heart tachycardic and irregular, no murmur. Lung sounds with diffuse expiratory wheeze, no rales, with slight increase in effort today. Abdomen moderately tensely distended, positive fluid wave, no tenderness to palpation. Bilateral 1-2+ LE edema to the mid asencio. Objective Last Vital Signs Temp 36.4 C L 04/20/24 07:35 Pulse 120 H 04/20/24 07:35 Resp 18 04/20/24 07:35 BP 90/70 L 04/20/24 07:35 Pulse Ox 93 04/20/24 07:35 Laboratory Results - last 24 hr 04/20/24 06:24 PT 11.7 H INR 1.2 H Sodium 138 Potassium 4.0 Chloride 98 Carbon Dioxide 34.5 H Anion Gap 5.5 BUN 47 H Creatinine 1.2 Est GFR (CKD-EPI 2020) 67.53 Glucose 97 Calcium 7.9 L Total Bilirubin 0.44 AST 33 ALT 28 Alkaline Phosphatase 141 H Ammonia 37 H Total Protein 6.6 Albumin 2.2 L PAWSS Have you Been Recently Intoxicated or Drunk Within the Last 30 days?: Yes Have you Ever Experienced Previous Episodes of Alcohol Withdrawal?: No Have you ever Experienced Withdrawal Seizures?: No Have you ever Experienced Delirium Tremens(DT)s?: No Have you ever undergone Alcohol Rehabilitation Treatment (i.e, inpt ot outpatient treatment programs)?: No Have you ever Experienced Blackouts?: No Have you ever Combined Alcohol with other Downers within the last 90 days?: No Have you ever Combined Alcohol with any other Substance of Abuse during the last 90 days?: No Positive Blood Alcohol level on Presentation? [PCS.BAL]: No Evidence of Increased Autonomic Activity (i.e. HR>120, tremor, sweating, agitation, nausea)?: No Result: 1 Time Spent with Patient Time Spent with Patient: 35-49 minutes Time was spent: preparing to see the patient(eg.review tests), obtaining and/or reviewing separately otained hiistory, ordering medications,tests, procedures, referring, communicating with other health physician primary care sports medicine, indepentently interpreting results, counseling the patient and care coordination
[2024-04-20 13:24] VITALS: BP 117/64; PULSE 112; RESP 19; TEMP 36.4; O2SAT 93
[2024-04-20] MEDS: Pantoprazole 40 MG VIAL IVP (16:30)
[2024-04-20] MEDS: Normal Saline 10 ML VIAL (16:30)
[2024-04-20] MEDS: Furosemide 80 MG TAB PO (16:30)
[2024-04-20 17:22] LABS: COVID-19 PCR Negative (Negative); Influenza A PCR Negative (Negative); Influenza B PCR Negative (Negative); RSV PCR Negative (Negative)
[2024-04-20 17:24] LABS: Source Nasopharynx
[2024-04-20 18:25] VITALS: BP 110/85; PULSE 114; RESP 18; TEMP 36.6; O2SAT 92
[2024-04-20] MEDS: Ciprofloxacin 500 MG TAB PO (19:34)
[2024-04-20] MEDS: traZODone 50 MG TAB PO (19:34)
[2024-04-21] VITALS (7 sets, daily range): BP systolic 79–100; BP diastolic 63–80; PULSE 102–124; RESP 5–18; TEMP 36.5–36.6; O2SAT 93–100
[2024-04-21] MEDS: traZODone 50 MG TAB PO (01:48)
[2024-04-21 06:42] LABS: HCT 37.6 % (40.0-50.0); HGB 11.9 g/dL (13.5-17.5); MCH 30.1 pg (27.0-33.0); MCHC 31.6 % (32.0-36.0); MCV 95 fL (80-95); MPV 9.3 fL (8.0-11.0); Platelet Count 266 10^3/uL (130-400); RBC 3.96 10^6/uL (4.36-5.78); RDW 16.2 % (11.8-14.1); RDW-SD 56.2 fL; WBC 8.85 10^3/uL (4.4-10.8)
[2024-04-21 06:53] LABS: Anion Gap 5.3 mmol/L (3-11); BUN 55 mg/dL (7-18); CREATININE 1.3 mg/dL (0.70-1.30); Calcium 7.9 mg/dL (8.5-10.1); Chloride 98 mmol/L (98-107); Estimated GFR 61.35 (mL/min/1.73m2); Glucose 98 mg/dL (74-106); Potassium 4.5 mmol/L (3.5-5.1); Sodium 137 mmol/L (136-145)
[2024-04-21 07:08] LABS: Absolute Lymphocyte Count 1.77 10^3/uL (1.2-3.4); Absolute Neutrophil Count 6.02 10^3/uL (1.2-6.7)
[2024-04-21 07:09] LABS: Absolute Basophil Count 0.18 10^3/uL (0.0-0.2); Absolute Eosinophil Count 0.18 10^3/uL (0.0-0.7); Absolute Monocyte Count 0.71 10^3/uL (0.1-0.8); Diff Comment Manual Differential; RBC Morphology Normal
[2024-04-21 07:11] LABS: CO2 31.4 mmol/L (21.0-32.0)
[2024-04-21] MEDS: Spironolactone 25 MG TAB PO (08:27)
[2024-04-21] MEDS: Potassium Chloride 20 MEQ TABCR PO (08:27)
[2024-04-21] MEDS: Folic Acid 1 MG TAB PO (08:27)
[2024-04-21] MEDS: Multivitamin TAB 1 TAB PO (08:27)
[2024-04-21] MEDS: Metoprolol 50 MG TAB 150 MG PO (08:35)
[2024-04-21] MEDS: Thiamine 100 MG TAB PO (08:36)
[2024-04-21] MEDS: Ciprofloxacin 500 MG TAB PO ×2 (08:36→20:53)
[2024-04-21] MEDS: Pantoprazole 40 MG VIAL IVP (08:36)
[2024-04-21] MEDS: Furosemide 80 MG TAB 100 MG PO ×2 (08:36→15:48)
[2024-04-21] MEDS: Normal Saline Flush 10 ML SYR IVP ×2 (08:37→20:56)
[2024-04-21] MEDS: Normal Saline 10 ML VIAL (09:29)
--- NOTE | 2024-04-21 11:24 | PGE_ITS ---
Date of Service Date of service: 04/21/24 Time of Service: :24 Assessment and Plan Assessment and plan (1) HFrEF (heart failure with reduced ejection fraction): Status: Acute Assessment and plan: -TTE from 04/14 shows EF 25%, global hypokenesis of left ventricle and hypocontractile dilated right ventricle (possibly from PE related pHTN) Global hypokenesis may also be alcoholic. -likely contributing factor in anasarca and pleural effusion -being diuresed as noted above -patient will need heart cath as outpatient -once patient is more stable will slowly add goal directed therapy including SGLT2i, consider ARNI, but BP running low so holding off for now. We had to hold RAMO due to low normal BP today. (2) Alcoholic cirrhosis: Status: Acute Assessment and plan: -known history, and patient continues to consume alcohol, MELD3.0 Score 19 with t. bili 1.4, INR 1.4, Cr 2, BUN 39 on admission. This has improved during his stay. -likley contributing factor of anasarca, ascites, and pleural effusion in combination with newly diagnosed HFrEF as noted above -patient has been on IV lasix 80mg BID with good urine output, changed to 80mg oral with addition of spironolactone. -would benefit from paracentesis, Dr. Boggs planning to do 04/22. -See below re: alcohol use disorder. Qualifiers: Ascites presence: with ascites Qualified Code(s): K70.31 - Alcoholic cirrhosis of liver with ascites (3) Severe sepsis: Status: Acute Assessment and plan: -Met criteria for severe sepsis on admission, has improved with normalization of WBC -E. coli in urine likely source, pansenitive. Was on Pip/tazo in ED and CTX since s/p 7 days, now fully treated. -Staph hominis in blood 04/13 and 04/14, has been on vancomycin. Cultures 04/16 NGTD. No clear source, lungs are possible, but he is improving. -Given that first two blood cultures were drawn within ~24hr of one another, and repeat cultures from two days later remains negative, patient may only need as little as total of 5 days of IV vanc for this bacteremia (see citation). Vanco stopped 04/20 after 7 days, but cipro continued with plan for one additional week. Alfredito ALVAREZ et al. Effect of algorithm-based therapy vs usual care on clinical success and serious adverse events in patients with staphylococcal bacteremia: A randomized clinical trial.?CUCA?2018 Jun 04; [id number]) (4) SVT (supraventricular tachycardia): Status: Chronic Assessment and plan: -patient with periods of tachycardia, found to be SVT vs atrial fibrillation on EKG. Last EKG looks more like Afib. He has a known h/o afib. -started lopressor 25mg PO bid, increased to 100mg BID, pulse still high, increased to 150mg BID. -Discussed with Dr. Beavers. Complicated case with no easy answer for rate control. Could try digoxin but may not work well, will try. Load orally based on IBW. -He is on apixaban. (5) Altered mental status: Status: Acute Assessment and plan: Mild alteration evident 04/19, better today stable from 04/20. Ammonia was mildly high. No overt encephalopathy now so will not start lactulose. (6) ETOH abuse: Assessment and plan: Discussed AA, medications, other supports. he doesn't think he needs this now. (7) Wheeze: Status: Acute Assessment and plan: New. He is a smoker and likely has COPD. Started with CXR, no new findings. Viral swab negative. I don't think steroids would worth using at this point. Subjective Subjective Patient reports: voiding w/o difficulty; denies blood in stool, vomiting or fever Interval history since last seen: lisinopril held for low BP this morning, metoprolol and furosemide given repeat CXR showed no change to effusions Furosemide back to oral, 100mg BID Feels about the same today. Belly still feels full, especially after eating. He is not having chest pain, states his heart is fine. Having multiple BMs/day. BPs running a little low, but he doesn't feel dizzy with this. Exam Narrative Exam Narrative: chronically ill appearing, sitting up on the side of his bed, in no acute distress, alert and oriented x 4 today. Heart tachycardic and irregular, no murmur. Lung sounds with slight diffuse expiratory wheeze, no rales, with normal effort today. Abdomen moderately tensely distended, positive fluid wave, no tenderness to palpation. Bilateral 1-2+ LE edema to the mid asencio (no change). Objective Last Vital Signs Temp 36.6 C 04/21/24 08:48 Pulse 124 H 04/21/24 08:48 Resp 18 04/21/24 08:48 BP 91/70 L 04/21/24 08:48 Pulse Ox 93 04/21/24 08:48 Laboratory Results - last 24 hr 04/20/24 04/20/24 04/21/24 16:15 16:44 06:33 WBC 8.85 RBC 3.96 L Hgb 11.9 L Hct 37.6 L MCV 95 MCH 30.1 MCHC 31.6 L RDW 16.2 H Plt Count 266 MPV 9.3 Immature Gran % 0.0 Neutrophils % 68.0 Lymphocytes % 20.0 Monocytes % 8.0 Eosinophils % 2.0 Basophils % 2.0 Nucleated RBC % 0.0 Absolute Neutrophils 6.02 Absolute Lymphocytes 1.77 Absolute Monocytes 0.71 Absolute Eosinophils 0.18 Absolute Basophils 0.18 RBC Morphology Normal Sodium 137 Potassium 4.5 Chloride 98 Carbon Dioxide 31.4 Anion Gap 5.3 BUN 55 H Creatinine 1.3 Est GFR (CKD-EPI 2020) 61.35 Glucose 98 Calcium 7.9 L COVID-19 Source Cancelled Nasopharynx SARS-CoV-2 (PCR) Cancelled Negative Influenza Type A (PCR) Cancelled Negative Influenza Type B (PCR) Cancelled Negative RSV (PCR) Cancelled Negative PAWSS Have you Been Recently Intoxicated or Drunk Within the Last 30 days?: Yes Have you Ever Experienced Previous Episodes of Alcohol Withdrawal?: No Have you ever Experienced Withdrawal Seizures?: No Have you ever Experienced Delirium Tremens(DT)s?: No Have you ever undergone Alcohol Rehabilitation Treatment (i.e, inpt ot outpatient treatment programs)?: No Have you ever Experienced Blackouts?: No Have you ever Combined Alcohol with other Downers within the last 90 days?: No Have you ever Combined Alcohol with any other Substance of Abuse during the last 90 days?: No Positive Blood Alcohol level on Presentation? [PCS.BAL]: No Evidence of Increased Autonomic Activity (i.e. HR>120, tremor, sweating, agitation, nausea)?: No Result: 1 Time Spent with Patient Time Spent with Patient: >50 minutes Time was spent: preparing to see the patient(eg.review tests), obtaining and/or reviewing separately otained hiistory, ordering medications,tests, procedures, referring, communicating with other health respiratory care practitioner, indepentently interpreting results, counseling the patient and care coordination
[2024-04-21] MEDS: Calcium Carbonate *TUMS* 500 MG CHEW PO (11:25)
[2024-04-21] MEDS: Apixaban 5 MG TAB PO (11:27)
--- NOTE | 2024-04-21 11:50 | W.SURGCON ---
Date of service: 04/21/24 Time of Service: 11:50 Assessment and Plan Assessment and plan (1) Ascites: Status: Acute Assessment and plan: Patient with history of alcohol abuse and liver cirrhosis. CT scan of the abdomen demonstrates ascites of the abdomen. Patient does complain of abdominal distention and occasional shortness of breath. The recommendation was made for a therapeutic paracentesis. The risk and benefits of the procedure were explained to the patient. The patient accepted. The patient's last dose of Eliquis was today. He will receive no additional doses. Plan for procedure tomorrow. Qualifiers: Ascites type: due to alcoholic cirrhosis Qualified Code(s): K70.31 - Alcoholic cirrhosis of liver with ascites History of Present Illness Narrative: This patient is a 64 male with h/o EtOH abuse, COPD, dliated cardiomyopathy with EF 23%. He was admitted to the hospital 04/13/2020 for 4 and a scar, sepsis, UTI, hepatic insufficiency, decompensated CHF. Currently the patient is hemodynamically stable and his sepsis has resolved. General surgery asked to see the patient for paracentesis. On admission CT scan of the abdomen did show liver cirrhosis and ascites. The patient does complain of occasional shortness of breath and abdominal distention. The patient has no prior history of paracentesis. Last INR was 1.5. Consults Consult date: 04/21/24 Review of Systems Constitutional Constitutional: Reports as per HPI, Reports difficulty sleeping, Reports lethargy and Reports poor appetite Cardiovascular Cardiovascular: Reports dyspnea Respiratory Respiratory: Reports cough, Reports hemoptysis and Reports dyspnea Gastrointestinal Gastrointestinal: Reports system reviewed and no additional complaints, except as documented PFSH All Active Problems (Updated 04/21/24 @ 11:56 by Heidi Boggs DO) Wheeze (Acute) Altered mental status (Acute) SVT (supraventricular tachycardia) (Chronic) HFrEF (heart failure with reduced ejection fraction) (Acute) Acute respiratory failure with hypoxia (Acute) Severe sepsis (Acute) Alcoholic cirrhosis (Acute) Sepsis (Acute) Ascites (Acute) Pleural effusion (Acute) Staghorn calculus (Acute) Acute renal failure (Acute) Acute UTI (Acute) CHF (congestive heart failure) (Chronic) Anasarca (Acute) Renal calculus, left (Acute 11/19/23) Pyelonephritis, acute (Acute 11/19/23) Medical History Anemia Squamous cell skin cancer ETOH abuse Surgical History (Updated 06/11/23 @ 16:02 by Ivett Rich RN) Status post open reduction and internal fixation (ORIF) of fracture Lower leg Right wrist Social History (Updated 05/24/23 @ 10:48 by Radha Nair) Smoking/Tobacco Use Status: Current, status unknown Smoking risk assessment performed?: Yes Alcohol Intake: current Substance use type: marijuana Adopted: No Caregiver/Support person: No Foster care: No Housing: apartment Communication Needs: None Pets and animals: No Exam GI Inspection: distended and large pannus Palpation: firm Percussion: dullness to percussion Results Last Vital Signs Temp 97.7 F 04/21/24 11:30 Pulse 118 H 04/21/24 11:30 Resp 18 04/21/24 11:30 BP 89/77 L 04/21/24 11:30 Pulse Ox 94 04/21/24 11:30 Labs 04/21/24 06:33 04/21/24 06:33 Labs: Laboratory Results - last 24 hr 04/20/24 04/20/24 04/21/24 16:15 16:44 06:33 WBC 8.85 RBC 3.96 L Hgb 11.9 L Hct 37.6 L MCV 95 MCH 30.1 MCHC 31.6 L RDW 16.2 H Plt Count 266 MPV 9.3 Immature Gran % 0.0 Neutrophils % 68.0 Lymphocytes % 20.0 Monocytes % 8.0 Eosinophils % 2.0 Basophils % 2.0 Nucleated RBC % 0.0 Absolute Neutrophils 6.02 Absolute Lymphocytes 1.77 Absolute Monocytes 0.71 Absolute Eosinophils 0.18 Absolute Basophils 0.18 RBC Morphology Normal Sodium 137 Potassium 4.5 Chloride 98 Carbon Dioxide 31.4 Anion Gap 5.3 BUN 55 H Creatinine 1.3 Est GFR (CKD-EPI 2020) 61.35 Glucose 98 Calcium 7.9 L COVID-19 Source Cancelled Nasopharynx SARS-CoV-2 (PCR) Cancelled Negative Influenza Type A (PCR) Cancelled Negative Influenza Type B (PCR) Cancelled Negative RSV (PCR) Cancelled Negative
--- NOTE | 2024-04-21 15:57 | PT.INTREAT ---
PT Notes Visit Reasons: Anasarca Inpatient Physical Therapy Treatment Note [facility] Date: 04/21/2024 PRECAUTIONS:IV SUBJECTIVE: I am having that surgery ( paracentesis) tomorrow. I haven't slept for more than 2 hours in days and it is starting to effect my mind. OBJECTIVE: pt seated at edge of bed with gown on, noted blood tinge sputum in tissue which was reported to Nurse. ? PAIN:denies VITALS: monitored by nursing ? Therapeutic Exercises ([id number]): Direct one-on-one instruction in therapeutic exercises to develop strength, endurance, range of motion and flexibility. ? Exercises seated heel raises, toe raises, LAQ, marching x 2 sets 10 reps ? Ambulation ? ? pt refused ? Provided skilled instruction in proper exercise performance Provided skilled manual cues to facilitate proper muscle recruitment and/or form ASSESSMENT:? Samuel demonstrates significantly less edema in BLE this session. He is resistant to participating in functional mobility tasks today becoming agitated and frustrated by attempts to motivate him to perform. He was agreeable to look at a rollator in an attempt to engage him in functional mobility training however he reported it was too small and therefore declined. PLAN: continue PT for strengthing, functional mobility and balance training TREATMENT CODE/TIME: 00606 x1 / [id number] DISCHARGE RECOMMENDATION: home with PT services
--- NOTE | 2024-04-21 16:08 | PT.INNT ---
PT Notes Visit Reasons: Aden 04/21/2024 Pt approached for treatment x 2 in the afternoon. He was seated in wheelchair however refused to participate. He was encouraged to go to the PT gym to participate to get out of his room he declined stating he was hungry and too tired. Approximately 1 hour later he was brought to the PT room by AKILA however he again declined to participate but wanted to see what equipment we had for him to use in the future maybe tomorrow or the next day since I have my surgery tomorrow.
--- NOTE | 2024-04-21 17:29 | PDOC.CMPRO ---
Date of service: 04/21/24 Time of Service: 17:29 Care Management Progress Note Progress Note Text Progress Note Text: Samuel was lying in bed when CM met with him. He stated that he would like to sleep more, as he is feeling very tired. He was finishing up his lunch at the time. CM discussed home health services with aSmuel, who stated that he is agreeable. He reported that he would like someone to help him set up his phone and do his grocery shopping. CM offered to send a referral to [facility] to determine how they may be able to support him in the community. He reported that per MD, he will likely have a paracentesis tomorrow. He stated that today's meal was the most he has eaten, and that he felt that he needed to use the bathroom; CM informed his nurse via the window unit air conditioning mechanic that he will need support with going to the bathroom. CM will continue to follow. Discharge Potential Discharge Needs: PT Evaluation and PCP F/U Appt (student services dean provider; Catherine Caceres) Anticipated Barriers to Discharge: Medical Status Patient/Family Education Needs: Review discharge instructions, discuss Ask Me Three Transportation: [facility] Transportation: Wheel chair van Plan: Anticipate Samuel will be discharged home, possibly with new home health orders for PT, when medically stable. He will follow up with his designated T-doc appointment with [facility] and transport via RCT vs private vehicle. CM will follow and continue to assess for discharge needs. SDOH(Care Management) Screening Will the Patient Participate in the Screening?: Unable to obtain Social Determinants of Health Comments(SDOH Details): pt very hard to understand
[2024-04-21] MEDS: Levalbuterol 1.25 MG/3 ML UPD VIAL UPD (20:15)
[2024-04-21] MEDS: traZODone 50 MG TAB 100 MG PO (20:53)
[2024-04-21] MEDS: Digoxin 0.25 MG TAB 0.375 MG PO (20:54)
--- NOTE | 2024-04-21 21:20 | NUR.NOTE ---
Nursing Note:212 I entered the patient room to inform him about his new fluid restriction. He told me that the voices are keeping him awake. He told me that that it was the faggot in the window and the queer in the flowers talking to him and keeping him awake. This is a new change that I have not observed with this patient previously.
[2024-04-22] VITALS (7 sets, daily range): BP systolic 101–118; BP diastolic 83–88; PULSE 60–118; RESP 18–60; TEMP 36.6–37.2; O2SAT 84–94
[2024-04-22] MEDS: Digoxin 0.125 MG TAB 0.1875 MG PO ×2 (02:11→09:46)
[2024-04-22 07:20] LABS: Anion Gap 9.2 mmol/L (3-11); BUN 56 mg/dL (7-18); CO2 29.8 mmol/L (21.0-32.0); CREATININE 1.4 mg/dL (0.70-1.30); Calcium 8.4 mg/dL (8.5-10.1); Chloride 99 mmol/L (98-107); Estimated GFR 56.13 (mL/min/1.73m2); Glucose 93 mg/dL (74-106); Potassium 4.4 mmol/L (3.5-5.1); Sodium 138 mmol/L (136-145)
[2024-04-22] MEDS: Normal Saline Flush 10 ML SYR IVP ×2 (08:30→20:21)
[2024-04-22] MEDS: Normal Saline 10 ML VIAL (09:44)
[2024-04-22] MEDS: Pantoprazole 40 MG VIAL IVP (09:44)
[2024-04-22] MEDS: Ciprofloxacin 500 MG TAB PO ×2 (09:45→20:21)
[2024-04-22] MEDS: Furosemide 80 MG TAB PO ×2 (09:45→17:28)
[2024-04-22] MEDS: Potassium Chloride 20 MEQ TABCR PO (09:45)
[2024-04-22] MEDS: Metoprolol 50 MG TAB 150 MG PO ×2 (09:49→20:21)
--- NOTE | 2024-04-22 11:50 | PCNE_ITS ---
Date of service: 04/22/24 Time of Service: 13:30 History of Present Illness Narrative: Samuel Delacruz is a 64-year-old gentleman from [facility] with active alcohol use disorder, CHF (EF 23%), COPD (quit smoking on day of admission), history of PE, cirrhosis and atrial fibrillation who was admitted to [facility] 9 days ago with worsening shortness of breath, orthopnea and anasarca. He was found to be septic with positive blood cultures (GPC), with GNR are growing out of urine), likely in origin. Required ICU stay. In addition to ascites and anasarca, he had pleural effusion and transiently required supplemental oxygen. He had some mild encephalopathy at the time of admission, not severe enough to start lactulose (ammonia only mildly elevated) and his ejection fraction was found to be stable at 25%. He has been receiving broad-spectrum antibiotics, and a therapeutic and diagnostic paracentesis is scheduled for today. Palliative care team has been asked to see him to discuss goals of care and begin work on advance care planning. Of note, he had a October 2023 for admission to [facility] ICU requiring intubation. Reportedly upon presentation to the ED last week, he reported he had not been taking any of his medications since discharge after October stay. He has been assigned to Marya Shields as his PCP, but has never been to that office for care. Of note, I see patient at 2 PM in the afternoon. He has been n.p.o. since midnight. Nursing and hospital staff described that his moods are up and down. He was in a good mood and cooperative and on task this morning. However getting hungry and annoyed with being kept n.p.o. and delay in the procedure by the time I see him. This definitely affects our meeting today. He is a very tangential historian and Almost never answers my questions, even when I attempt to bring him back on topic. (Likely worsened by his being n.p.o. For over 15 hours) Cirrhosis with ascites and anasarca: Somewhat tangential with answers. He said he never knew we had a liver problem. He only drinks beer. Did not quantify amount. Reports that he stopped drinking while he was in the hospital last time. Did not answer when I asked what the longest period of time he went without alcohol or any prior history of treatment for alcohol use. Also unclear whether he has had significant ascites in the past. Sounds like he did have lower extremity edema and scrotal edema in October. It does not appear he has had a paracentesis in the past. Unable to get any additional history or evaluate what states she is in contemplating alcohol cessation whether he be willing to accept any assistance Congestive heart failure: Note in chart that previous ejection fraction 23%, 25% this admission. Every time I mention his heart problem, he cuts me off and says I do not have a heart problem and Changes the subject. Atrial fibrillation: Not explored with patient Ambulatory dysfunction: Patient had major fracture 1982 requiring ORIF from knee to ankle . Difficulty walking since then. More difficulty walking and recent history and often cannot even get out of bed. Difficult to get additional history. Will use walker or crutches at home. COPD/nicotine dependence: Based on conversation today, sounds like he stopped smoking on and off (easier for him to stop this then alcohol from what I hear today). There is currant jelly sputum on tissue by the bedside today. He said this always happens when he stopped smoking, comes from the bottom of the lungs when I stop smoking . Alcohol use: Mentions during our visit that he has been drinking since he was a child. Only drinks beer. He is going to stop drinking now. However he wants to start drinking again and probably will start again. See discussion under cirrhosis as well. Care Team: Primary Care physician: Marya Shields (has never met) Social HX: Was living in [facility] until December 2022. For some reason ended up living alone in an apartment in [facility]: Sounds like this was the only housing available at that time. When asked about friends or supports: Changed subject. When asked if he would prefer to live in [place], he does not answer. Marital Status: Never , does not want to discuss family (live in [place]). Occupation: Retired hotel maintenance worker. Children: None Hobbies: Did not answer Additional Services: -[facility] -Has declined Meals on Wheels Impression of currents health status: Tangential answer What bothers you the most: Tangential answer What worries you the most: Changes subject Goals: When I ask him specifically about goals and hopes, he changes the subject. However during our 60-minute visit he mentions the following things: -He plans to stop drinking (however he also mentions he Wants to resume drinking and probably will) -He is very worried that he will lose his apartment like he did 6 months ago. He did pay his landlord the day he was transferred to the hospital. He is hoping that he is able to return and resume living in his apartment. -He hopes to be able to walk better once the fluid is removed from his abdomen. Current information preferences: Function: Ambulation: Uses walker or cane. Some days cannot walk at all ADLs: Living alone without help, appears to be independent, changes subject when specific questions asked iADLs: Has a kitchen at in the house, can prepare simple meals. Also goes to local senior center on days he is ambulatory to get a meal as well. Hearing: Seems intact Vision: Uses reading glasses Cognition: Denies any problems with memory. Alert to year and month today. Falls: Not queried Driving: Has not drive in decades Palliative Performance Scale % Ambulation Activity and Evidence of Disease Self Care Intake Level of Consciousness 100 Full Normal activity, no evidence of disease Full Normal Full 90 Full Normal activity, some evidence of disease Full Normal Full 80 Full Normal activity with effort, some evidence of disease Full Normal or reduced Full 70 Reduced Unable to do normal work, some evidence of disease Full Normal or reduced Full 60 Reduced Unable to do hobby or some housework, significant disease Occasional assist necessary Normal or reduced Full or confusion 50 Mainly sit/lie Unable to do any work, extensive disease Considerable assistance required Normal or reduced Full or confusion 40 Mainly in bed Unable to do any work, extensive disease Mainly assistance Normal or reduced Full, drowsy, or confusion 30 Totally bed bound Unable to do any work, extensive disease Total care Reduced Full, drowsy, or confusion 20 Totally bed bound Unable to do any work, extensive disease Total care Minimal sips Full, drowsy, or confusion 10 Totally bed bound Unable to do any work, extensive disease Total care Mouth care only Drowsy or coma 0 - - - - Patient Score: Unable to get complete history. I am going to guess that PPS is around 60 Spiritual history: Not pentecostalism Palliative review of systems: Patient does not answer questions. Pain: Dyspnea: GI symptoms: Appetite: Depression: Anxiety: None Emotional Distress: Spiritual/Existential Distress: Labs: 04/21/2024 Cr: 1.4 (range 1.2-2.1 during this adm. Baseline not clear.) Liver panel: NL AST/ALT, Bili was 1.4 at adm, now0.44, sl increaed ALk Phos. Albumin: 2.2 CBC: Hemoglobin 11.9 MELD 3.0: 19 (04/14/2024 by ICU attending) Advanced Care Planning: Advanced Directive: None on file, blank form given today and explained. Patient declines to complete today. Health Care Agent: Not on file, patient unable to name anybody he would want to be his HCA. See discussion under A/P COLST: CODE STATUS currently full code Limitations: Assessment and Plan Assessment and plan (1) Alcoholic cirrhosis: Status: Acute Assessment and plan: Mr. Delacruz is a 64 yo man from [place], who has lived alone in an apartment in [facility] for over a year. He has significant chronic medical issues including severe CHF (EF 23%), alcoholic cirrhosis with anasarca and ascites and CKD3. By what little history I can glean from him today, he is not receiving any support services (i.e. CFC) and has no support from friends or family or other community members. This is concerning, giving his declining status and comorbidities. Staff reports he can be polite and cooperative at times ( as sweet as a peach) but then swing into anger and belligerence. This may be due to his Alcohol use DO or he could have an underlying personality DO. Either way, it appears he has distanced himself from others (or has alienated them). I expect it will take patience and time to build work on setting up supports for him and also to try and understand his goals and values. Goals of Care: It is very important that he return to his apartment and not lose his apartment or his possessions (as he did in the recent past). He also hopes to become more ambulatory. Attempts at Serious Illness Conversation were unsuccessful. PCT will need to revisit this on a day when he has eaten and is not nervous about upcoming procedure. He was unwilling to engage in any discussion about his health or prognosis or future needs. Regarding Health Care Agent: he claims to have no friends or even acquaintances locally who might act as a HCA. He mentions that it will probably have to be a family member in the [place] area. THere are several down there. BUt he has had no contact with them in a while and declines to tell me their names. Consistently he has declined to give a name for an emergency contact whenever he comes to [facility] (as well as none in [facility] system). I explained to him the role of healthcare agent, the importance of the healthcare agent, what would happen if he could not make it to his medical decision and he did not have a healthcare agent. This was somewhat challenging as He frequently changed the subject. I did get out of him that he thought the only option was one of his relatives in [place]. I asked him if he want to name 1 of those people and if we could complete a healthcare agent form today. He declined to do so. He did accept a blank copy of a [place] HCA form which he said he would look at and fill out himself. I promised that someone from the palliative care team would follow-up with him in 1 to 2 weeks to revisit this. Regarding life-sustaining treatment: I attempted CPR discussion with him. We discussed the procedure of CPaR, actual mechanical process, rate of success in restoring heartbeat, short and long-term side effects in survivors (including likely decreased physical and cognitive functioning). Unfortunately Mr. Rodriguez was again tangential. In the end he said I should put down what ever I wanted, because that was what I was going to do anyhow. He could not tolerate further discussion to clarify this. I am not sure the patient had the capacity to understand this topic today at this time. I think it is worth revisiting the topic in the future when he has had something to eat and is feeling better. For now he remains full code. Based on various things he told me today, sounds like he would be very interested in any treatment or procedure done in the hospital to make him feel better, for example the paracentesis. EtOH: Staff reports that his CIWA scores were low and he did not exhibit withdrawal sxs. Mr. Delacruz is ambivalent about whether he does or does not want to stop drinking. He does not seem to understand the connection between EtOH use and cirrhosis. While he is at [facility] (and sober), use of repeated attempts at motivational interviewing might be helpful. Goal would be for him to meet with [facility] while an inpatient. If he is willing to take, could prescribe acamprosate at lower dose (333 mg TID), (understanding that he has declined to take any medicines as outpt at all in the last 5 months) Discharge planning: Case management will explore additional supports with patient. PCT follow-up: A member of the palliative care team will follow-up with the patient in 1 to 2 weeks to see if we can make some progress on identifying a healthcare agent, and perhaps get a better sense of goals of care. Qualifiers: Ascites presence: with ascites Qualified Code(s): K70.31 - Alcoholic cirrhosis of liver with ascites (2) Severe sepsis: Status: Acute (3) HFrEF (heart failure with reduced ejection fraction): Status: Acute (4) Alcohol use disorder: Status: Acute (5) Ascites: Status: Acute Qualifiers: Ascites type: due to alcoholic cirrhosis Qualified Code(s): K70.31 - Alcoholic cirrhosis of liver with ascites (6) Acute renal failure: Status: Acute (7) Advanced care planning/counseling discussion: Status: Acute (8) Palliative care encounter: Status: Acute Assessment and plan: 30 minutes spent today on Advance Care Planning. Patient and family participated voluntarily. Advance care planning may include (not limited to) explanation and discussion of advance directives, choosing and appointing healthcare agents, alternatives to various ACP tools, discussion of (and if indicated, completion of) COLST form, discussion of patient's values and overall goals for treatment, palliative and disease directive care options, ways to avoid hospital readmission including hospice discussions, care preferences should the patient's several other adverse health events.See today's palliative care note for additional information. Additional 60 minutes today spent with patient getting additional history, reviewing records and [facility] and [facility] systems, discussion with nursing staff, hospital staff, case management, documentation PFSH All Active Problems (Updated 04/22/24 @ 12:06 by Susan Ramos MD) Palliative care encounter (Acute) Advanced care planning/counseling discussion (Acute) Alcohol use disorder (Acute) Wheeze (Acute) Altered mental status (Acute) SVT (supraventricular tachycardia) (Chronic) HFrEF (heart failure with reduced ejection fraction) (Acute) EF 23-25% Acute respiratory failure with hypoxia (Acute) Severe sepsis (Acute) Alcoholic cirrhosis (Acute) Sepsis (Acute) Ascites (Acute) Pleural effusion (Acute) Staghorn calculus (Acute) Acute renal failure (Acute) Acute UTI (Acute) CHF (congestive heart failure) (Chronic) Anasarca (Acute) Renal calculus, left (Acute 11/19/23) Pyelonephritis, acute (Acute 11/19/23) Medical History Anemia Squamous cell skin cancer ETOH abuse Surgical History (Updated 06/11/23 @ 16:02 by Ivett Rich RN) Status post open reduction and internal fixation (ORIF) of fracture Lower leg Right wrist Social History (Updated 05/24/23 @ 10:48 by Radha Nair) Smoking/Tobacco Use Status: Current, status unknown Smoking risk assessment performed?: Yes Alcohol Intake: current Substance use type: marijuana Adopted: No Caregiver/Support person: No Foster care: No Housing: apartment Communication Needs: None Pets and animals: No Exam Narrative Exam Narrative: Obese gentleman appearing older than stated age sitting up in bed. Affect ranges between annoyed-but - to angry and mad. (Again, patient has been n.p.o. for over 15 hours). Very talkative. Somewhat pressured speech. Will speak for up to 5 minutes without stopping if not interrupted. He is oriented to year and month and place. Unable to evaluate for capacity otherwise at this time, given shins, stay on topic. He does not appear to be dyspneic, he is slightly pale. Further exam not done. Results Last Vital Signs Temp 36.7 C 04/22/24 11:44 Pulse 115 H 04/22/24 11:44 Resp 20 04/22/24 11:44 BP 101/86 04/22/24 11:44 Pulse Ox 94 04/22/24 11:44 Labs 04/21/24 06:33 04/22/24 06:40 Labs: Laboratory Results - last 24 hr 04/22/24 06:40 Sodium 138 Potassium 4.4 Chloride 99 Carbon Dioxide 29.8 Anion Gap 9.2 BUN 56 H Creatinine 1.4 H Est GFR (CKD-EPI 2020) 56.13 Glucose 93 Calcium 8.4 L
--- NOTE | 2024-04-22 12:39 | CMPROGNOTE_ITS ---
Care Management Progress Note Progress Note Text Progress Note Text: Samuel was sleeping earlier in the day when CM attempted to meet with him, he met with Palliative after lunch then went to the OR this afternoon for a Paracentesis. No change to overall discharge plan, CM will follow. Discharge Potential Discharge Needs: PT Evaluation, PCP F/U Appt (call center dispatcher provider: Angelita Caceres) and Surgical F/U Appt Anticipated Barriers to Discharge: Medical Status Patient/Family Education Needs: Review discharge instructions, discuss Ask Me Three Transportation: [facility] (W/C van, coordinated by CM) Plan: Anticipate, Samuel will be discharged home, with new home health PT, when medically stable. He will follow up with his designated T-doc appointment with [facility] and transport via [facility] vs private vehicle. CM will follow and continue to assess for discharge needs. SDOH(Care Management) Screening Will the Patient Participate in the Screening?: Unable to obtain Social Determinants of Health Comments(SDOH Details): pt very hard to understand
--- NOTE | 2024-04-22 16:13 | W.PM.PROGNOT ---
Date of Service Date of service: 04/22/24 Time of Service: 16:13 Assessment and Plan Assessment and plan (1) HFrEF (heart failure with reduced ejection fraction): Status: Acute Assessment and plan: -TTE from 04/14 shows EF 25%, global hypokenesis of left ventricle and hypocontractile dilated right ventricle (possibly from PE related pHTN) Global hypokenesis may also be alcoholic. -likely contributing factor in anasarca and pleural effusion -being diuresed -patient will need heart cath as outpatient -once patient is more stable will slowly add goal directed therapy including SGLT2i, consider ARNI, but BP running low so holding off for now.. (2) Alcoholic cirrhosis: Status: Acute Assessment and plan: -known history, and patient continues to consume alcohol, MELD3.0 Score 19 with t. bili 1.4, INR 1.4, Cr 2, BUN 39 on admission. This has improved during his stay. -likley contributing factor of anasarca, ascites, and pleural effusion in combination with newly diagnosed HFrEF as noted above -patient has been on IV lasix 80mg BID with good urine output, changed to 80mg oral with addition of spironolactone. -would benefit from paracentesis, Dr. Boggs planning to do 04/22. Per report fluid was cloudy and was sent for culture and cell count, could be partially treated SBP. -See below re: alcohol use disorder. Qualifiers: Ascites presence: with ascites Qualified Code(s): K70.31 - Alcoholic cirrhosis of liver with ascites (3) Severe sepsis: Status: Acute Assessment and plan: -Met criteria for severe sepsis on admission, has improved with normalization of WBC -E. coli in urine likely source, pansenitive. Was on Pip/tazo in ED and CTX since s/p 7 days, now fully treated. -Staph hominis in blood 04/13 and 04/14, has been on vancomycin. Cultures 04/16 NGTD. No clear source, lungs are possible, but he is improving. -Given that first two blood cultures were drawn within ~24hr of one another, and repeat cultures from two days later remains negative, patient may only need as little as total of 5 days of IV vanc for this bacteremia (see citation). Vanco stopped 04/20 after 7 days, but cipro continued with plan for one additional week. Alfredito ALVAREZ et al. Effect of algorithm-based therapy vs usual care on clinical success and serious adverse events in patients with staphylococcal bacteremia: A randomized clinical trial.?CUCA?2018 Jun 04; [id number]) (4) SVT (supraventricular tachycardia): Status: Chronic Assessment and plan: -patient with periods of tachycardia, found to be SVT vs atrial fibrillation on EKG. Last EKG looked more like Afib. He has a known h/o afib. -started lopressor 25mg PO bid, increased to 100mg BID, pulse still high, increased to 150mg BID. -Discussed with Dr. Beavers. Complicated case with no easy answer for rate control. Could try digoxin but may not work well, stared 8/12 in PM, loaded orally based on IBW. -He is on apixaban. (5) Altered mental status: Status: Acute Assessment and plan: Mild alteration evident 04/19, better today stable from 04/20. Ammonia was mildly high. Still no overt encephalopathy so will not start lactulose, but continue to monitor clincally. (6) ETOH abuse: Assessment and plan: We have discussed AA, medications, other supports. he doesn't think he needs this now. I appreciate palliative input as well. (7) Wheeze: Status: Acute Assessment and plan: Appears this is more chronic and intermittenlty more noticable. Has DANIS/BRUCE prn. He is a smoker and likely has COPD. Started with CXR, no new findings. Viral swabs negative. no change Subjective Subjective Patient reports: no new complaints Interval history since last seen: He feels okay. Breathing feels fine (though he has nasal canula now with one liter). He is hungry, hasn't eaten all day waiting for paracentesis. No fever, abdomen uncomfortable but not really painful. Exam Narrative Exam Narrative: chronically ill appearing, sitting up on the side of his bed, in no acute distress, alert and oriented x 4 today. Heart tachycardic and irregular, no murmur. Lung sounds with slight diffuse expiratory wheeze, no rales, with normal effort today. Abdomen moderately tensely distended, positive fluid wave, no tenderness to palpation. Bilateral 1-2+ LE edema to the mid asencio (no change). Objective Last Vital Signs Temp 36.7 C 08/13/24 11:44 Pulse 115 H 04/22/24 11:44 Resp 20 04/22/24 11:44 BP 101/86 04/22/24 11:44 Pulse Ox 94 04/22/24 11:44 Laboratory Results - last 24 hr 04/22/24 06:40 Sodium 138 Potassium 4.4 Chloride 99 Carbon Dioxide 29.8 Anion Gap 9.2 BUN 56 H Creatinine 1.4 H Est GFR (CKD-EPI 2020) 56.13 Glucose 93 Calcium 8.4 L PAWSS Have you Been Recently Intoxicated or Drunk Within the Last 30 days?: Yes Have you Ever Experienced Previous Episodes of Alcohol Withdrawal?: No Have you ever Experienced Withdrawal Seizures?: No Have you ever Experienced Delirium Tremens(DT)s?: No Have you ever undergone Alcohol Rehabilitation Treatment (i.e, inpt ot outpatient treatment programs)?: No Have you ever Experienced Blackouts?: No Have you ever Combined Alcohol with other Downers within the last 90 days?: No Have you ever Combined Alcohol with any other Substance of Abuse during the last 90 days?: No Positive Blood Alcohol level on Presentation? [PCS.BAL]: No Evidence of Increased Autonomic Activity (i.e. HR>120, tremor, sweating, agitation, nausea)?: No Result: 1 Time Spent with Patient Time Spent with Patient: 35-49 minutes Time was spent: preparing to see the patient(eg.review tests), obtaining and/or reviewing separately otained hiistory, ordering medications,tests, procedures, referring, communicating with other health managed care provider, indepentently interpreting results and care coordination
[2024-04-22] MEDS: Sodium Bicarbonate 50 MEQ/50 ML VIAL (16:29)
--- NOTE | 2024-04-22 16:29 | PAPNONF_PTH ---
PATIENT: Samuel Delacruz LOC: U#:[id number] AGE/SX: 64/M ROOM: RE04/13/[address]: Samuel Menezes : 1960 BED: A DIS: 04/24/2024 SPEC #: [id number] RECD: 04/22/24 18:35 STATUS: ELLYN REQ #: [id number] OLLIE: 04/22/24 16:[address]: Samuel Menezes DEPT: [facility] Cytology RECD BY: Sabrina Francisco ENTERED: 04/22/24 18:37 SP TYPE: PAPNONF OTHR DR: AG [place] Shola Mark A Dittenbir, MD Wendy Frye, MD Christopher Husko, Kathleen Morris MD Robert G Kloos, DO Leung,MD Mendel Bergeron MD Schroer,Jose Arboleda, MD Diaz,Lena Robles Unknown,Unknown Tissues: 1 - BODY FLUID CYTO(NOT S/U/N/EM)[facility] Procedures: BODY FLUID CYTO(NOT SPU/UR/NIP/ENDOM)[facility] Comments: [id number] (TV = 60 ml, SENT FRESH) (REFRIGERATED)
--- NOTE | 2024-04-22 16:50 | W.PM.OP ---
Date of service: 04/22/24 Time of Service: 16:50 Operative Note Operative Note DATE OF PROCEDURE: 04/22/24 PRE-OP DIAGNOSIS: ascites 2nd etoh cirrhosis POST-OP DIAGNOSIS: same PROCEDURE: paracentisis SURGEON: Heidi Boggs ASSISTING SURGEON: Lena Diaz ANESTHESIA TYPE: Local By Surgeon Refer to Anesthesia Record ESTIMATED BLOOD LOSS: 1 PATHOLOGY: other COMPLICATIONS: None Patient was transported to: floor Patient's condition: stable Procedure Description: Informed consent is obtained, explaining benefits and risks of the procedure including but not limited to: bleeding/infections/damage to bowels or blood vessels/chronic drainage or leakage/need for repeat procedure/reactions to anesthetics.?? The patient is brought to the procedure room and placed in the supine position.?? A time-out is done.? Ultrasound is used to localize the pocket of fluid.? The area is prepped and draped in the usual sterile fashion using a ChloraPrep scrub solution.? 10 cc's of 1% Lidocaine with epinephrine is used for local anesthetization.? The abdomen is punctured and the catheter is inserted.?2 liters of light yellow fluid is evacuated today.? The catheter is removed.? Pressure dressing is applied.? The patient tolerated the procedure well without complication and transferred to recovery in stable condition.?
[2024-04-22 18:47] LABS: Source: Peritoneal
[2024-04-22 19:03] LABS: Clarity Cloudy; Mononuclear Cells 92 %; Nucleated Cells 221 uL (0); Polynuclear Cells 8 %; Source Peritoneal
[2024-04-22] MEDS: traZODone 50 MG TAB 100 MG PO (20:21)
[2024-04-23] VITALS (7 sets, daily range): BP systolic 90–120; BP diastolic 58–82; PULSE 67–122; RESP 15–20; TEMP 36.2–37.3; O2SAT 88–94
[2024-04-23] MEDS: Digoxin 0.125 MG TAB 0.25 MG PO (09:34)
[2024-04-23] MEDS: Furosemide 80 MG TAB PO ×2 (09:35→15:58)
[2024-04-23] MEDS: Ciprofloxacin 500 MG TAB PO ×2 (09:35→20:36)
[2024-04-23] MEDS: Potassium Chloride 20 MEQ TABCR PO (09:35)
[2024-04-23] MEDS: Metoprolol 50 MG TAB 150 MG PO ×2 (09:35→20:36)
[2024-04-23] MEDS: Pantoprazole 40 MG TABCR PO (09:35)
[2024-04-23] MEDS: Normal Saline Flush 10 ML SYR IVP ×2 (09:35→20:37)
--- NOTE | 2024-04-23 09:42 | PDOC.CMPRO ---
Date of service: 04/23/24 Time of Service: 09:42 Care Management Progress Note Progress Note Text Progress Note Text: Samuel had an a paracentesis yesterday and reports that his stomach feels less full. Mr. Delacruz will likely be discharged home with New [facility] RN/PT/OT/LIFE SKILLS COACH Services tomorrow, if medically ready for discharge. Cultures are currently pending. ALONSO met with Samuel today, to help him with his phone and unfortunately couldn't find it and thinks he left it home on his table. After Samuel is planning on having ALONSO help him with the phone after he's discharged and will get to the office by the [facility] shuttle. He also mentioned having limited groceries at home and will ask his friend/neighbor Evin to go to the store for him. CM will continue to follow. Discharge Patient/Family Education Needs: Review discharge instructions, discuss Ask Me Three Transportation: [facility] Plan: Anticipate, Samuel will be discharged home with new home health PT, when medically stable. Samuel does not have a PCP and will require a T-doc appointment with Angelita Caceres. He will transport home via [facility] private vehicle with a stop at pharmacy, if needed. CM will follow and continue to assess for discharge needs. SDOH(Care Management) Screening Will the Patient Participate in the Screening?: Unable to obtain Social Determinants of Health Comments(SDOH Details): pt very hard to understand
--- NOTE | 2024-04-23 11:37 | W.PM.PROGNOT ---
Date of Service Date of service: 04/23/24 Time of Service: 10:00 Assessment and Plan Assessment and plan (1) S/P abdominal paracentesis: Status: Acute Assessment and plan: await results of diagnostic studies single stitch applied to puncture site. Subjective Subjective Patient reports: no new complaints and feels better Interval history since last seen: PPD#1 s/p paracentesis. 2 liters of cloudy yellow fluid was removed and sent for diagnostics Today, patient has no new complaints. fluid has been draining from the puncture site. Exam GI Inspection: distended Other: yellow fluid consistent with ascites draining from puncture site Objective Last Vital Signs Temp 97.2 F L 04/23/24 08:11 Pulse 110 H 04/23/24 09:34 Resp 16 04/23/24 08:11 BP 114/79 04/23/24 08:11 Pulse Ox 90 L 04/23/24 08:11 Laboratory Results - last 24 hr 04/22/24 04/22/24 04/22/24 16:30 16:30 20:08 Fluid Source Peritoneal Peritoneal Cancelled Fluid Color Yellow Cancelled Fluid Clarity Cloudy Cancelled Fluid pH 7.0 Fluid WBC 221 Cancelled Fld Polynuclear WBCs % 8 Cancelled Fluid Mononuclear Cell 92 Cancelled Fluid Other Cells Cancelled Path Cons Comment Cancelled PAWSS Have you Been Recently Intoxicated or Drunk Within the Last 30 days?: Yes Have you Ever Experienced Previous Episodes of Alcohol Withdrawal?: No Have you ever Experienced Withdrawal Seizures?: No Have you ever Experienced Delirium Tremens(DT)s?: No Have you ever undergone Alcohol Rehabilitation Treatment (i.e, inpt ot outpatient treatment programs)?: No Have you ever Experienced Blackouts?: No Have you ever Combined Alcohol with other Downers within the last 90 days?: No Have you ever Combined Alcohol with any other Substance of Abuse during the last 90 days?: No Positive Blood Alcohol level on Presentation? [PCS.BAL]: No Evidence of Increased Autonomic Activity (i.e. HR>120, tremor, sweating, agitation, nausea)?: No Result: 1 Time Spent with Patient Time Spent with Patient: 25-34 minutes Time was spent: preparing to see the patient(eg.review tests), referring, communicating with other health technical healthcare consultant, indepentently interpreting results, counseling the patient and care coordination
--- NOTE | 2024-04-23 12:12 | PT.INPN ---
PT Notes Visit Reasons: [facility] Inpatient Physical Therapy Progress Note Date: April 23, 2024 Dates of Service: 04/16/2024 through 04/23/2024 PRECAUTIONS: IV line left upper extremity SUBJECTIVE: I think I am going home in the next few days. I would like to take this walker even though I already have one at home. OBJECTIVE : Patient presents seated at edge of bed agreeable to participate. PAIN: Denies BED MOBILITY/TRANSFERS Rolling L/R: Independent Supine-sit: Independent Sit-supine: Independent Sit-stand: Independent Stand-sit: Independent Bed-Chair: Independent with rolling walker or/and axillary crutches Chair-bed: Independent with rolling walker and/or axillary crutches GAIT Assistive Device: Axillary crutches; Weight bearing: Full weightbearing Assist: Standby assist Distance: 60 feet x 2 Deviation: 4 point gait pattern, wide base of support, increased forward weight shift onto crutches Assistive Device: Rolling walker Weight bearing: Full weightbearing Assist: Standby assist Distance: 100 feet x 2 Deviation: wide base of support, increased lateral weight shift, feet outside frame of walker reciprocal pattern VITALS: Monitored by nursing THEREX: Seated long arc quads, marching, ankle pumps , standing heel raises x 10 reps STAIRS: 5 steps with 2 rails SBA Functional Measure AMPA Raw Score: 23 CMS: 11.20% disability ASSESSMENT: Patient is a 64year old male referred to physical therapy services with diagnosis of sepsis. Patient presents with clinical signs and symptoms consistent with deconditioning as demonstrated by the following impairment level findings decreased strength proximal musculature greater than distal of large muscle groups bilateral lower extremity, decreased standing balance reactions. These impairments are contributing to the following functional limitations: AMPAC score, reduced functional activity tolerance for long distance ambulation and stairs. He has demonstrated gains in bed mobility transfers and short distance ambulation with rolling walker and/or axillary crutches. Patient can be resistive to suggestions/instructions to improve dynamic balance when standing. He continues to benefit from skilled PT prior to discharge to home Patient is assessed as a Moderate 57571 complexity based on the following: o History: 64-year-old male with impairment level findings functional limitations and past medical history as indicated above o Examination: Demonstrates impairments in strength balance and mobility as documented above o Presentation: Stable o Decision Making: POOR GOALS Goals x1 week 1. Supine-sit independent [MET] 2. Sit-Supine INDEPENDENT [MET] 3. Sit-Stand INDEPENDENT [MET] 4. Stand-sit INDEPENDENT [MET] 5. Bed-chair Independent with crutches [MET] 6. Chair-bed Independent with crutches [MET] 7. Gait Independent with cruthches 250 feet [ not met] 8. Stairs 12 Steps with rail independent [NOT MET] 9. I with home exercise program [NOT MET] PLAN OF CARE/TREATMENT PLAN: 1-2x/day, 7 days/ week x 1 week Plan of care has been reviewed with the REHABILITATION COORDINATOR providing the service under Physical therapy direction. Initiate physical therapy intervention for strengthening, bed mobility, transfers, gait, stairs, balance training, use of assistive device. DISCHARGE RECOMMENDATIONS: Home with PT TREATMENT CODE/TIME: 21652 x 2 [id number]
--- NOTE | 2024-04-23 15:44 | PT.INTREAT ---
PT Notes Visit Reasons: Anasarca Inpatient Physical Therapy Treatment Note [facility] Date: 04/23/2024 PRECAUTIONS:abdominal incision SUBJECTIVE: I think they are sending me home tomorrow OBJECTIVE: seated in chair agreeable to perfrom stairs ? PAIN: denied ? Therapeutic Activities (49198x5): Direct one-on-one instruction in dynamic activities to improve functional performance. ? BED MOBILITY/TRANSFERS? Sit-stand: independent ? Stand-sit: independent? Transfers with RW SBA cues for keeping within frame of RW? Provided skilled cues and instruction on performance and technique throughout. ? ambulation ? Assistive Device: RW? Weight bearing: full Assist:SBA? Distance:?100 feet x 2 ? Deviation: wide SARAHI , feet intermittently outside frame of RW ? STAIRS:5 with rails SBA /CGA as pt refuses to allow hands on ? ASSESSMENT:? Pt demonstrates improvement with stability during ambulation and able to perfrom stairs with SBA/CGA cues to reduce speed. Pt continues to be resistent to instruction to improve safety with ambulation with RW and crutches. PLAN: Continue with strengthening, ambulation and stairs TREATMENT CODE/TIME: 69051 x 1 13 mins DISCHARGE RECOMMENDATION: home with PT
--- NOTE | 2024-04-23 16:44 | CHAPLAIN ---
Samuel was sitting up at the edge of the bed when I visited. After several minutes of conversation, he invited me to sit down and was apologetic about not having a chair for me. Samuel shared some personal history telling me that he's originally from the [place] area, and most recently lived in [place] before moving to [place] to find an affordable apartment. He said he left his family, and that was his choice. They are nice people, he explained and he is considering getting in touch with them at some point although he doesn't have any contact information for them. He said he doesn't really have any friends here, but knows some of the people who live in his building. Samuel talked about using RCT to go shopping. He knows the schedule for the bus to [facility] in [place], [place]. He said he likes his apartment but he worries about being less mobile when he is discharged. [facility] has he's heard that have been problems and he can see people hanging out at the town office building, and he knows people near his apartment building do drugs. I will continue to visit.
[2024-04-23 17:25] LABS: Albumin, Body FLuid 1.6 g/dL (See Note)
[2024-04-23 17:26] LABS: Glucose, Fluid 85 mg/dL (See Note)
--- NOTE | 2024-04-23 17:42 | PGE_ITS ---
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 -likely contributing factor in anasarca and pleural effusion -Diuresed well on IV furosemide, but weight has rebounded somewhat on orals, though still quite negative on I/Os. -patient will need cardiology follow up and possible heart cath as outpatient -once patient is more stable will slowly add goal directed therapy including SGLT2i, consider ARNI, but BP as been running low so holding off for now. RAMO being held. Spironolactone resumed 04/23 after being held for low BP. (2) Alcoholic cirrhosis: Status: Acute Assessment and plan: -known history, and patient continues to consume alcohol, MELD3.0 Score 19 with t. bili 1.4, INR 1.4, Cr 2, BUN 39 on admission. This has improved during his stay. -likley contributing factor of anasarca, ascites, and pleural effusion in combination with newly diagnosed HFrEF as noted above -patient has been on IV lasix 80mg BID with good urine output, changed to 80mg oral with addition of spironolactone. -Initially refused paracentesis, Dr. Boggs did 04/22. Per report fluid was cloudy and was sent for culture and cell count, most c/w partially treated SBP, see sepsis re: abx -See below re: alcohol use disorder. Qualifiers: Ascites presence: with ascites Qualified Code(s): K70.31 - Alcoholic cirrhosis of liver with ascites (3) Severe sepsis: Status: Acute Assessment and plan: -Met criteria for severe sepsis on admission, has improved with normalization of WBC -E. coli in urine likely source, pansenitive. Was on Pip/tazo in ED and CTX since s/p 7 days, now fully treated. -Staph hominis in blood 04/13 and 04/14, has been on vancomycin. Cultures 04/16 NGTD. No clear source, lungs are possible, but he is improving. -Given that first two blood cultures were drawn within ~24hr of one another, and repeat cultures from two days later remains negative, patient may only need as little as total of 5 days of IV vanc for this bacteremia (see citation). Vanco stopped 04/20 after 7 days, but cipro continued with plan for one additional week. -The ceftriaxone days and now cipro are not first line but do cover SBP as well. FLuid cultures pending from paracentesis. Alfredito ALVARZE et al. Effect of algorithm-based therapy vs usual care on clinical success and serious adverse events in patients with staphylococcal bacteremia: A randomized clinical trial.?CUCA?2018 Jun 04; [id number]) (4) SVT (supraventricular tachycardia): Status: Chronic Assessment and plan: -patient with periods of tachycardia, found to be SVT vs atrial fibrillation on EKG. Last EKG looked more like Afib. He has a known h/o afib. -started lopressor 25mg PO bid, increased to 100mg BID, pulse still high, increased to 150mg BID. -Discussed with Dr. Beavers. Complicated case with no easy answer for rate control. Could try adding digoxin but may not work well, stared 04/21 in PM, loaded orally based on IBW, continued, will need levels after 1 week. -He is on apixaban to treat stroke risk and previous PEs. (5) Altered mental status: Status: Acute Assessment and plan: Mild alteration evident 04/19, better today stable from 04/20. Ammonia was mildly high. Still no severe encephalopathy so we did not start lactulose, but continue to monitor clincally. (6) ETOH abuse: Assessment and plan: We have discussed AA, medications, other supports. he doesn't think he needs this now. I appreciate palliative input as well. (7) Wheeze: Status: Acute Assessment and plan: He is a smoker and likely has COPD. Has had intermittent wheezing, CXR showed effusions but no new findings, viral swabs negative, lungs more clear today. (8) Discharge planning issues: Status: Acute Assessment and plan: He is getting close to discharge, we discussed discharge 04/24. He will need care coordination to establish with PCP, have follow up labs. Does not drive and no local support. Could use support for sobriety if we can encourage him to use resources. He is at high risk for readmission and poor outcomes. Exam Narrative Exam Narrative: chronically ill appearing, sitting up on the side of his bed, in no acute distress, alert and oriented x 4 today. Heart tachycardic and irregular, no murmur. Lung sounds without wheeze today, no rales, with normal effort today. Abdomen moderately tensely distended, positive fluid wave, no tenderness to palpation, paracentesis wound is bandaged.. Bilateral 1-2+ LE edema to the mid asencio (no change). Objective Last Vital Signs Temp 36.5 C 04/23/24 15:35 Pulse 118 H 04/23/24 15:35 Resp 15 04/23/24 15:35 BP 119/82 04/23/24 15:35 Pulse Ox 94 04/23/24 15:35 Laboratory Results - last 24 hr 04/22/24 04/22/24 04/22/24 16:30 16:30 20:08 Fluid Source Peritoneal Peritoneal Cancelled Fluid Color Yellow Cancelled Fluid Clarity Cloudy Cancelled Fluid pH 7.0 Fluid WBC 221 Cancelled Fld Polynuclear WBCs % 8 Cancelled Fluid Mononuclear Cell 92 Cancelled Fluid Other Cells Cancelled Path Cons Comment Cancelled PAWSS Have you Been Recently Intoxicated or Drunk Within the Last 30 days?: Yes Have you Ever Experienced Previous Episodes of Alcohol Withdrawal?: No Have you ever Experienced Withdrawal Seizures?: No Have you ever Experienced Delirium Tremens(DT)s?: No Have you ever undergone Alcohol Rehabilitation Treatment (i.e, inpt ot outpatient treatment programs)?: No Have you ever Experienced Blackouts?: No Have you ever Combined Alcohol with other Downers within the last 90 days?: No Have you ever Combined Alcohol with any other Substance of Abuse during the last 90 days?: No Positive Blood Alcohol level on Presentation? [PCS.BAL]: No Evidence of Increased Autonomic Activity (i.e. HR>120, tremor, sweating, agitation, nausea)?: No Result: 1 Time Spent with Patient Time Spent with Patient: 35-49 minutes Time was spent: preparing to see the patient(eg.review tests), obtaining and/or reviewing separately otained hiistory, ordering medications,tests, procedures, referring, communicating with other health healthcare technician, indepentently interpreting results, counseling the patient and care coordination
[2024-04-23] MEDS: Acetaminophen 325 MG TAB 650 MG PO (20:36)
[2024-04-23] MEDS: Spironolactone 25 MG TAB PO (20:36)
[2024-04-23] MEDS: traZODone 50 MG TAB 100 MG PO (20:36)
[2024-04-24] MEDS: Ciprofloxacin 500 MG TAB PO (07:46)
[2024-04-24] MEDS: Pantoprazole 40 MG TABCR PO (07:46)
[2024-04-24] MEDS: Potassium Chloride 20 MEQ TABCR PO (07:46)
[2024-04-24] MEDS: Spironolactone 25 MG TAB PO (07:46)
[2024-04-24] MEDS: Metoprolol 50 MG TAB 150 MG PO (07:46)
[2024-04-24] MEDS: Furosemide 80 MG TAB PO (07:46)
[2024-04-24] MEDS: Digoxin 0.125 MG TAB 0.25 MG PO (07:46)
[2024-04-24] MEDS: Normal Saline Flush 10 ML SYR IVP (07:47)
[2024-04-24 07:54] VITALS: BP 101/82; PULSE 121; RESP 18; TEMP 36.7; O2SAT 91
--- NOTE | 2024-04-24 09:48 | DSE_ITS ---
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 -likely contributing factor in anasarca and pleural effusion -Diuresed well on IV furosemide, but weight has rebounded somewhat on orals, though still quite negative on I/Os. -patient will need cardiology follow up and possible heart cath as outpatient -once patient is more stable will slowly add goal directed therapy including SGLT2i, consider ARNI, but BP as been running low so holding off for now. RAMO being held. Spironolactone resumed 04/23 after being held for low BP. (2) Alcoholic cirrhosis: Status: Acute Asessment and Plan: -known history, and patient continues to consume alcohol, MELD3.0 Score 19 with t. bili 1.4, INR 1.4, Cr 2, BUN 39 on admission. This has improved during his stay. -likley contributing factor of anasarca, ascites, and pleural effusion in combination with newly diagnosed HFrEF as noted above -patient has been on IV lasix 80mg BID with good urine output, changed to 80mg oral with addition of spironolactone. -Initially refused paracentesis, Dr. Boggs did 04/22. Per report fluid was cloudy and was sent for culture and cell count, most c/w partially treated SBP, see sepsis re: abx -See below re: alcohol use disorder. (3) Severe sepsis: Status: Acute Asessment and Plan: -Met criteria for severe sepsis on admission, has improved with normalization of WBC -E. coli in urine likely source, pansenitive. Was on Pip/tazo in ED and CTX since s/p 7 days, now fully treated. -Staph hominis in blood 04/13 and 04/14, has been on vancomycin. Cultures 04/16 NGTD. No clear source, lungs are possible, but he is improving. -Given that first two blood cultures were drawn within ~24hr of one another, and repeat cultures from two days later remains negative, patient may only need as little as total of 5 days of IV vanc for this bacteremia (see citation). Vanco stopped 04/20 after 7 days, but cipro continued with plan for one additional week. (4) SVT (supraventricular tachycardia): Status: Chronic Asessment and Plan: -patient with periods of tachycardia, found to be SVT vs atrial fibrillation on EKG. Last EKG looked more like Afib. He has a known h/o afib. -started lopressor 25mg PO bid, increased to 100mg BID, pulse still high, increased to 150mg BID. -Discussed with Dr. Beavers; Complicated case with no easy answer for rate control. -added digoxin but may not work well, stared 04/21 in PM, loaded orally based on IBW, continued, will need levels after 1 week. -He is on apixaban to treat stroke risk and previous PEs. (5) Altered mental status: Status: Acute (6) ETOH abuse: Asessment and Plan: have discussed AA, medications, other supports. he doesn't think he needs this now. I appreciate palliative input as well. (7) Wheeze: Status: Acute (8) Discharge planning issues: Status: Acute Discharge Plan Disposition Patient Disposition: Home W/Home Health Services Condition: Good Discharge Details Reason For Visit: Anasarca Admit Date/Time: 04/13/24 22:19 Admit Provider: Samuel Menezes Attending Provider: Samuel Menezes Primary Care Provider: Marya Shields Hospital Course Hospital Course: Patient initially presented with what initially appeared to be severe anasarca from a combination of alcoholic cirrhosis and newly diagnosed congestive heart failure with an EF of 25%. Patient also had severe sepsis initially treated with Zosyn in the ED however, it was determined that it was secondary to was initially thought to be a UTI but was also found to have Streptococcus hominis in 2 consecutive blood cultures for which the patient was adequately treated with vancomycin. Patient initially hesitant to have paracentesis but ultimately agreed and ascitic fluid appeared somewhat cloudy with concern for partially treated SBP for which patient was started on ciprofloxacin and will be discharged with an additional 7 days of antibiotics. He was also in nonsustained SVT but during hospitalization patient refused to wear his pvc monitor and would become frequently agitated when interacting with ho spital staff. Therefore, while it appears patient was persistently tachycardic we did increase his metoprolol up to 150 mg twice daily and did consult cardiology who recommended initiating digoxin. Additionally, patient had not been on his Eliquis that was prescribed after a PE and subsequent intubation at [facility] in October. He was restarted on Eliquis which she will be discharged with. Additionally, patient will also have referrals to cardiology to monitor his SVT, heart failure, and discussed possibility of outpatient left heart catheterization and AICD placement, as well as referral to [facility] gastroenterology/hepatology for his alcoholic cirrhosis. Home Meds and New Rx's Prescriptions: New ciprofloxacin HCl 500 mg Tablet 500 mg PO BID Qty: 14 0RF spironolactone 25 mg Tablet 25 mg PO BID Qty: 90 0RF furosemide 80 mg Tablet 80 mg PO BID@0830,1600 Qty: 90 0RF pantoprazole 40 mg Tablet,Delayed Release (Dr/Ec) 40 mg PO DAILY@0730 Qty: 90 0RF metoprolol tartrate 50 mg Tablet 150 mg PO BID Qty: 180 0RF digoxin 125 mcg (0.125 mg) Tablet 0.25 mg PO DAILY Qty: 90 0RF Eliquis 5 mg Tablet 5 mg PO BID Qty: 90 0RF Discontinued acetaminophen 325 mg tablet 325 mg PO Q4H PRN ibuprofen 200 mg tablet 200 mg PO Q6H PRN Discharge Instructions Instructions: Heart failure with reduced ejection fraction, Diet for Cirrhosis, Liver Failure Diet [place] [place] - (EtOH cirrhosis) Jesica Beavers MD [ [facility] STAFF PHYSICIAN] - Activity:: Activity as Tolerated Equipment/Supplies:: No Equipment Needed Diet:: As Tolerated Discharge Orders Discharge Orders: Discharge Order (Routine); Ordered 04/24/24 Ordered By: Dae Waddell DS: Summary Time Spent with Patient providing and/or coordinating discharge services: Greater than 30 minutes Status at Discharge Functional status at discharge: independent ambulation Overall status at discharge: patient is back to baseline Mental Status: mental status grossly normal Speech and Movement: speech and movement normal Mood: congruent mood Affect: normal affect Quality:SDOH Health Related Social Needs: No Data to Display Exam Narrative Exam Narrative: chronically ill appearing disheveled gentleman laying in bed in no acute distress, AOx4, on room air, heart RRR, lungs CTAB, abdomen distended with significant improvement, no tenderness to palpation Psych Mental Status: mental status grossly normal Speech and Movement: speech and movement normal Mood: congruent mood Affect: normal affect DS: Data Vitals/I&O Vitals and I&O: Vital Signs Temperature 98.1 F 04/24/24 07:54 Temperature Source Temporal Artery Scan 04/24/24 07:54 Pulse 121 H 04/24/24 07:54 Pulse Rhythm Irregular 04/23/24 21:26 Pulse 142 H 04/15/24 12:15 Respiratory Rate 18 04/24/24 07:54 Respiratory Effort Normal, Non-Labored 04/23/24 21:26 Respiratory Depth Normal 04/23/24 21:26 Respiratory Pattern Normal 04/23/24 21:26 Blood Pressure 101/82 04/24/24 07:54 Blood Pressure Mean 92 04/16/24 16:01 Blood Pressure Position Supine 04/14/24 20:24 Pulse Oximetry 91 L 04/24/24 07:54 Oxygen Delivery Method Room Air 04/24/24 07:54 Oxygen Flow Rate 0 04/24/24 07:54 Pain Level 0 04/24/24 07:54 Comment refused vitals to be taken at this time. 04/23/24 04:56 Comment patient refuses heart monitor 04/15/24 16:01 Intake & Output 04/23/24 04/24/24 04/24/24 17:59 05:59 17:59 Intake Total 360 / 360 240 / 600 220 / 220 Output Total 350 / 350 2725 / 3075 400 / 400 Balance -2485 / -2475 -180 / -180 Weight 248 lb 6.4 oz Intake: Oral 360 / 360 240 / 600 220 / 220 Output: Urine 350 / 350 2725 / 3075 400 / 400 Other: Urine Color Yellow Yellow Yellow Urine Appearance Clear Clear Clear Urine Odor Normal None None Voiding Methods Urinal Urinal Data Completed and Pending Labs on day of discharge: Labs from last 24 hours 04/22/24 16:30 Fluid Glucose 85 Fluid Albumin 1.6 Preliminary micro results at discharge 04/22/24 16:30 Anaerobic Culture - Preliminary Peritoneal 04/22/24 16:30 Body Fluid Culture - Preliminary Peritoneal PFSH All Active Problems (Updated 04/23/24 @ 20:25 by Altaf Crews) Discharge planning issues (Acute) S/P abdominal paracentesis (Acute) Palliative care encounter (Acute) Advanced care planning/counseling discussion (Acute) Alcohol use disorder (Acute) Wheeze (Acute) Altered mental status (Acute) SVT (supraventricular tachycardia) (Chronic) HFrEF (heart failure with reduced ejection fraction) (Acute) EF 23-25% Acute respiratory failure with hypoxia (Acute) Severe sepsis (Acute) Alcoholic cirrhosis (Acute) Sepsis (Acute) Ascites (Acute) Pleural effusion (Acute) Staghorn calculus (Acute) Acute renal failure (Acute) Acute UTI (Acute) CHF (congestive heart failure) (Chronic) Anasarca (Acute) Renal calculus, left (Acute 11/19/23) Pyelonephritis, acute (Acute 11/19/23) Medical History Anemia Squamous cell skin cancer ETOH abuse Surgical History (Updated 04/23/24 @ 14:29 by Ana M Brown) History of abdominal paracentesis (~04/2024) Status post open reduction and internal fixation (ORIF) of fracture Lower leg Right wrist Social History (Updated 05/24/23 @ 10:48 by Radha Nair) Smoking/Tobacco Use Status: Current, status unknown Smoking risk assessment performed?: Yes Alcohol Intake: current Substance use type: marijuana Adopted: No Caregiver/Support person: No Foster care: No Housing: apartment Communication Needs: None Pets and animals: No Time Spent with Patient Time Spent with Patient: <45 minutes Time was spent: preparing to see the patient(eg.review tests), obtaining and/or reviewing separately otained hiistory, ordering medications,tests, procedures, referring, communicating with other health manager respiratory care, indepentently interpreting results, counseling the patient and care coordination
--- NOTE | 2024-04-24 10:39 | PT.INTREAT ---
PT Notes Visit Reasons: Anasarca Inpatient Physical Therapy Treatment Note [facility] Date: 04/24/2024 PRECAUTIONS:abdominal incision SUBJECTIVE: I am leaving today OBJECTIVE: seated at edge of bed agreeable to ambulate within the room? PAIN: denied ? Therapeutic Activities ([id number]): Direct one-on-one instruction in dynamic activities to improve functional performance. ? BED MOBILITY/TRANSFERS? Sit-stand: independent ? Stand-sit: independent? Transfers with RW independent intermittently feet outside frame of rolling walker which patient becomes agitated when corrected. Transfers with axillary crutches: Independent ? Provided skilled cues and instruction on performance and technique throughout. ? ambulation ? Assistive Device: RW? Weight bearing: full Assist: Independent ? resistive to cues to stay within frame of rolling walker? Distance:?80 feet within the room? Deviation: wide SARAHI , feet intermittently outside frame of RW ? Assistive Device: Axillary crutches ? Weight bearing: full Assist: Independent ?Distance:?80 feet within the room? Deviation: 4 point gait pattern increased weightbearing on axilla intermittently STAIRS: Declined to participate in stairs? ASSESSMENT:? Pt demonstrates improvement with stability during ambulation with shoes on. He declined to participate in stairs prior to potential discharge this afternoon. He continues to report he has a rolling walker at home although expresses desire to take the walker that is in his room. He was educated that this is facility property and reminded that he has a rolling walker at home. Pt continues to be resistent to instruction to improve safety with ambulation with RW and crutches. PLAN: Continue with strengthening, ambulation and stairs if patient remains in hospital TREATMENT CODE/TIME: 36590 x 2 [id number] 24 mins DISCHARGE RECOMMENDATION: home with PT
--- NOTE | 2024-04-24 12:09 | PDOC.HHF2F_ITS ---
Home Health Referral Home Health Orders Clinical synopsis of why skilled professionals are needed: HFrEF, EtOH cirrhosis, anasarca, UTI, bacteremia, SBP Registered Nurse: Check all that apply Instruct on new or changed medication(s)/assess compliance: Ordered Physical Therapist: Check all that apply Increase strength & endurance for safe mobility at home: Ordered To design/establish home maintenance program: Ordered Fall reduction therapy program for patient with history of frequent falls: Ordered Home safety evaluation and teaching/gait training including stair management (if applicable): Ordered Encounter Date and Reason: I certify that a FTF encounter for this patient was performed on April 24, 2024 and that such encounter was related to the primary reason the patient requires home health services. The encounter was conducted in the following manner: * By me as the certifying physician, FISH HATCHERY MANAGER, PA or * By an inpatient physician, FISH HATCHERY MANAGER or PA during an inpatient stay who communicated findings to me, Certification And Authentication I certify that I composed the above information based on my clinical judgment relating to this patient's medical condition and, if applicable, clinical findings communicated to me by the NPP or inpatient physician who performed the FTF encounter. Name of Provider that will be monitoring home health services: None None
--- NOTE | 2024-04-24 12:22 | CMDISCH_ITS ---
Date of service: 04/24/24 Time of Service: 12:22 LACE Index Scoring Tool Questions: Length of Stay (in days): 7 - 13 Was the patient admitted via the E.D.?: Yes Comorbidities: Congestive Heart Failure and Liver or Renal Disease E.D. Visits: 2 Answers: Total Score: 15 Risk of Readmission: High Risk Care Management Discharge Plan Reason for Hospitalization: Anasarca Discharge Plan: Samuel is discharged home with [facility] services. Pt agrees to discharge plan and will follow up with community providers as recommended. T-Doc appointment is scheduled for 05/01/24 at 1045, coordinated by CM. Samuel advises that he will be establishing care with Marya at [facility] in the future. Samuel plans to follow up with [facility] for support with his phone and in the community, and identifies that he will get there by [employer] shuttle bus later today or tomorrow. He shared with CM that his friend Evin will go grocery shopping for him today, after verbalizing that he had meat in his freezer but not much else. Patient/Family Education Needs: Review discharge instructions, limitations, medications and plan to follow up with the t-doc and community providers. Discuss ask me three and goals of self care. Services Needed at Discharge: Home Health Care Services ([facility] RN/PT, coordinated by CM. Dr. Valle will follow orders until pt establishes care with a PCP ) and Transportation ([facility], coordinated by [facility]) SDOH Health Related Social Needs: No Data to Display Care Management Referrals: [facility]
[2024-04-25 10:42] LABS: Lipase, BF 11 U/L
== END 2024-04-24 12:31 | disposition home health service (06) | DRG 871 ==
LOC: ER 22:37 → EDHOLD 22:46 → ICU 04-14 02:32 → MS 04-16 21:07
PROVIDERS: Family Medicine; Surgery; Admitting Provider General Practice; Emergency Provider Physician Assistant; Visit Provider General Practice
PROC: 0W9G3ZZ Drainage of Peritoneal Cavity, Percutaneous Approach (ICD-10-PCS; CPT 49082; principal; 2024-04-22 11:45)
DX: A41.1 Sepsis due to other specified staphylococcus; I50.21 Acute systolic (congestive) heart failure; J96.01 Acute respiratory failure with hypoxia; K65.2 Spontaneous bacterial peritonitis; N39.0 Urinary tract infection, site not specified; I47.10 Supraventricular tachycardia, unspecified; N17.9 Acute kidney failure, unspecified; I42.0 Dilated cardiomyopathy; J98.11 Atelectasis; K70.31 Alcoholic cirrhosis of liver with ascites; F10.10 Alcohol abuse, uncomplicated; R65.20 Severe sepsis without septic shock; Z91.198 Patient's noncompliance with other medical treatment and regimen for other reason; Z86.711 Personal history of pulmonary embolism; I48.91 Unspecified atrial fibrillation; J44.9 Chronic obstructive pulmonary disease, unspecified; I11.0 Hypertensive heart disease with heart failure; D64.9 Anemia, unspecified; F12.90 Cannabis use, unspecified, uncomplicated; B96.20 Unspecified Escherichia coli [E. coli] as the cause of diseases classified elsewhere; R60.1 Generalized edema; R41.82 Altered mental status, unspecified; F17.210 Nicotine dependence, cigarettes, uncomplicated
CPT/HCPCS: 49083; 00123; 36410; 36415; 51702; 71250; 80048; 80053; 82042; 82805; 83690; 85027; 87040; 87077; 87637; 93005; 93306; 94640; 96361; 96374; 96375; 96376; 97110; 97161; 97162; 97530; 99222; 99231; 99291; 71045; 71046; 74176; 80202; 80320; 81003; 81015; 81373; 82140; 83036; 83605; 83735; 83880; 83986; 84484; 85025; 85610; 87070; 87075; 87086; 87186; 87205; 88104; 89051; 93010; 94668; 94760; 99223; 99232; 99233; 99238; J0696; J1940; J2470; J2543; J2560; J2919; J3372; J3490; J7613; J7614; J7620

== ENCOUNTER → 2024-04-21 07:56 | Outpatient (BNVA) | payer MEDICARE, SELFPAY | PROVIDERS: Visit Provider Internal Medicine Cardiovascular Disease ==

== ENCOUNTER 2024-05-01 12:18 | Emergency (ER) | payer MEDICARE, SELFPAY ==
[2024-05-01 12:18] VITALS: BP 108/84; PULSE 116; RESP 18; TEMP 36.3; O2SAT 97
--- OUTSIDE RECORDS SUMMARY | 2024-05-01 13:04 | XMS_ITS | Encounter Summary ---
Author Organization [facility] Address [address] [place] [address] Care Team Providers Care Dietitian Research Name Role Phone Unknown, Provider Primary Care Provider Nadeem Norton Unavailable [phone] Encounter Details Date Type Department Care Team (Late st Contact Info) Description 04/23/2024 Lab Requisition [facility] Pathology & Laboratory Medicine - [facility] [address] [place] [address] Outr Resulting Lab, Provider Social History Tobacco Use Types Packs/Day Years Used Date Smoking Tobacco: Never Assessed Interpersonal Safety Answer Date Record ed Physically Hurt Never 04/11/2020 Verbally Threaten Not on file 04/11/2020 Sex and Gender Information Value Date Recorded Sex Assigned at Not on file Gender Identity Not on file Sexual Orientation Not on file documented as of this encounter Plan of Treatment Not on file documented as of this encounter Procedures Procedure Name Priority Date/Time Associated Diagnosis Comments GLUCOSE, FLUID Routine 04/22/2024 16:30 EDT documented in this encounter Results * GLUCOSE, FLUID (04/22/2024 16:30 EDT) Glucose, Fluid 85 See Note mg/dL 04/23/2024 17:22 EDT [facility] Comment: Reference range unavailable. Clinical correlation required. This Fluid Glucose assay was developed and its performance characteristics determined by [facility]. ??It has not been cleared or approved by the [place] Food and Drug Administration. Fluid PERITONEAL FLUID / Unknown 04/22/2024 16:30 EDT 04/23/2024 17:01 EDT Narrative [facility] - 04/23/2024 17:22 EDT Peritoneal Fluid Provider Outr Resulting Lab GEN LAB UNIT COLLECT ORDERABLES [facility] [address] [place] [address] documented in this encounter Visit Diagnoses Not on filedocumented in this encounter Care Teams Dietitian Research Relationship Specialty Start Date End Date Unknown, Provider, PCP - General 04/10/24 Nadeem Norton PA 04/10/24 documented as of this encounter
--- OUTSIDE RECORDS SUMMARY | 2024-05-01 13:04 | XMS_ITS | Encounter Summary ---
Author Organization [facility] Address [address] [place] [address] Care Team Providers Care Keno Dealer Name Role Phone Unavailable Primary Care Provider Unavailabl e Encounter Details Date Type Department Care Team (Latest Contact Info) Description 01/20/2014 11:16 EDT - 01/20/2014 23:59 EDT Hospital Encounter [address] [address] Unknown, Provider, Discharge Disposition: Home or Self Care Social History Tobacco Use Types Packs/Day Years Used Date Smoking Tobacco: Never Assessed Sex and Gender Information Value Date Recorded Sex Assigned at Not on file Gender Identity Not on file Sexual Orientation Not on file documented as of this encounter Discharge Disposition Disposition Code Departure Means Destination Home or Self Senior Living documented in this encounter Plan of Treatment Not on file documented as of this encounter Visit Diagnoses Not on filedocumented in this encounter
--- OUTSIDE RECORDS SUMMARY | 2024-05-01 13:04 | XMS_ITS | Encounter Summary ---
Author Organization [facility] Address [address] [place] [address] Care Team Providers Care Prep Person Name Role Phone Nadeem Norton Primary Care Provider Encounter Details Date Type Department Care Team (Late st Contact Info) Description 01/21/2019 Results Only [facility] [phone] Kyle Venegas, [address] [place], [place] [id number] Social History Tobacco Use Types Packs/Day Years Used Date Smoking Tobacco: Never Assessed Sex and Gender Information Value Date Recorded Sex Assigned at Not on file Gender Identity Not on file Sexual Orientation Not on file documented as of this encounter Plan of Treatment Not on file documented as of this encounter Procedures Procedure Name Priority Date/Time Associated Diagnosis Comments SURGICAL PATHOLOGY Routine 01/21/2019 16 :05 EDT documented in this encounter Results * SURGICAL PATHOLOGY (01/21/2019 16:05 EDT) Pathology Report: SURGICAL PATHOLOGY REPORT Reports generated via electronic interface contain original data; however they are lacking the format of the original report. Caution should be taken when reading/interpret ing unformatted reports. Name: ? PATRICK DELACRUZ ? Accession #: ? [id number] ? : ? 1960 (Age: 59) ??M ? Collect Date: ? 01/21/2019 ? Location: ? [facility] ? Receive Date: ? 01/22/2019 ? Provider: KYLE VENEGAS DO Copy to: ALEKSANDR SIMPSON DO ? Final Pathologic Diagnosis: SKIN OF FACE, LEFT FOREHEAD, SHAVE BIOPSY: - Squamous cell carcinoma, moderately differentiated with clear cell features, widely involving the biopsy base. Document reviewed and electronically signed by: DONNA WARNER MD Report ??Date: 01/23/2019 14:44 By the signature above, the attending physician certifies that he/she has personally conducted a gross and/or microscopic examination of the described specimens and rendered or confirmed the above diagnosis. Specimen(s) Received: Left forehead Clinical History: Red, nonhealing skin lesion(s); clinical diagnosis code: ??D49.2 Gross Description: ? Received in formalin labelled with proper patient identification (initials P, D) and left forehead is a shave biopsy of a white encrusted papule (1.1 x 1.0 x 0.3 cm). The specimen is inked, trisected and submitted 1. AG Tee ([facility]) 01/22/2019 4:31 PM End of Report [facility] 01/21/2019 16:0 5 EDT 01/22/2019 16:05 EDT Kyle Venegas DO PATHOLOGY ORDER [facility] [address] [place] [address] documented in this encounter Visit Diagnoses Not on filedocumented in this encounter Care Teams Prep Person Relationship Specialty Start Date End Date Nadeem Norton PA PCP - General 01/26/14 04/09/24 documented as of this encounter
--- OUTSIDE RECORDS SUMMARY | 2024-05-01 13:04 | XMS_ITS | Encounter Summary ---
Author Organization [facility] Address [address] [place] [address] Care Team Providers Care Director Workers Compensation Name Role Phone Unknown, Provider Primary Care Provider [phone] Nadeem Norton Unavailable [phone] Encounter Details Date Type Department Care Team (Late st Contact Info) Description 04/23/2024 Lab Requisition [facility] Pathology & Laboratory Medicine - [facility] [address] [place] [address] Outr Resulting Lab, Provider Social History Tobacco [...] Procedure Name Priority Date/Time Associated Diagnosis Comments ALBUMIN, FLUID Routine 04/22/2024 16:30 EDT documented in this encounter Results * ALBUMIN, FLUID (04/22/2024 16:30 EDT) Albumin, Fluid 1.6 See Note g/dL 04/23/2024 17:19 EDT [facility] Comment: Reference range unavailable. Clinical correlation required. This Fluid Albumin assay was developed and its performance characteristics determined by [facility]. ??It has not been cleared or approved by the [place] Food and Drug Administration. Fluid PERITONEAL FLUID / Unknown 04/22/2024 16:30 EDT 04/23/2024 17:01 EDT Narrative [facility] - 04/23/2024 17:19 EDT Peritoneal Fluid Provider Outr Resulting Lab GEN LAB UNIT COLLECT ORDERABLES [facility] [address] [place] [address] documented in this encounter Visit Diagnoses Not on filedocumented in this encounter Care Teams Director Workers Compensation Relationship Specialty Start Date End Date Unknown, Provider, PCP - General 04/10/24 Nadeem Norton PA 04/10/24 documented as of this encounter
--- OUTSIDE RECORDS SUMMARY | 2024-05-01 13:04 | XMS_ITS | Clinical Summary ---
Author Organization [facility] Address [address] [place] [address] Care Team Providers Care Munitions Factory Worker Name Role Phone Unknown, Provider Primary Care Provider Nadeem Norton Unavailable [phone] Encounters Date Type Department Care Team Description 04/23/2024 Lab Requisition [facility] Pathology & Laboratory [address] [address] Lena Diaz, DO Encounter for palliative care; Other specified counseling; Acute kidney failure, unspecified (HCC-CMS); Alcohol use, unspecified, uncomplicated; Wheezing; Alcohol abuse, uncomplicated; Altered mental status, unspecified; Supraventricular tachycardia, unspecified (HCC-CMS); Unspecified systolic (congestive) heart failure (HCC-CMS); Alcoholic cirrhosis of liver with ascites (HCC-CMS); Acute respiratory failure with hypoxia (HCC-CMS); Pleural effusion, not elsewhere classified; Alcoholic cirrhosis of liver without ascites (HCC-CMS); Urinary tract infection, site not specified; Severe sepsis without septic shock (CODE) ([facility]); Sepsis, unspecified organism ([facility]-CMS); Generalized edema 04/23/2024 Lab Requisition [facility] Pathology & Laboratory [address] [address] Outr Resulting Lab, Provider 04/23/2024 Lab Requisition [facility] Pathology & Laboratory [address] [address] Outr Resulting Lab, Provider from Last 3 Months Social History Tobacco Use Types Packs/Day Years Used Date Smoking Tobacco: Never Assessed Interpersonal Safety Answer Date Record ed Physically Hurt Never 04/11/2020 Verbally Threaten Not on file 04/11/2020 Sex and Gender Information Value Date Recorded Sex Assigned at Not on file Gender Identity Not on file Sexual Orientation Not on file Plan of Treatment Health Maintenance Due Date Last Done Comments Hepatitis C Screen 1960 RSV Immunization ( o r 60+ Years) (1 - 1-dose 60+ series) 2020 COVID-19 Vaccine ( - 2022-24 season) 2023 Procedures Procedure Name Priority Date/Time Associated Diagnosis Comments GLUCOSE, FLUID Routine 04/22/2024 16:30 EDT ALBUMIN, FLUID Routine 04/22/2024 16:30 EDT NON SENIOR SOFTWARE ENGINEER/FNA CYTOLOGY 04/22/2024 16:20 EDT Encounter for palliative care Other specified counseling Acute kidney failure, unspecified (HCC-CMS) Alcohol use, unspecified, uncomplicated Wheezing Alcohol abuse, uncomplicated Altered mental status, unspecified Supraventricular tachycardia, unspecified (HCC-CMS) Unspecified systolic (congestive) heart failure (HCC-CMS) Alcoholic cirrhosis of liver with ascites (HCC-CMS) Acute respiratory failure with hypoxia (HCC-CMS) Pleural effusion, not elsewhere classified Alcoholic cirrhosis of liver without ascites (HCC-CMS) Urinary tract infection, site not specified Severe sepsis without septic shock (CODE) ([facility]-CMS) Sepsis, unspecified organism (HCC-CMS) Generalized edema from Last 3 Months Results * ALBUMIN, FLUID (04/22/2024 16:30 EDT) Albumin, Fluid 1.6 See Note g/dL 04/23/2024 17:19 EDT [facility] Comment: Reference range unavailable. Clinical correlation required. This Fluid Albumin assay was developed and its performance characteristics determined by [facility]. ??It has not been cleared or approved by the US Food and Drug Administration. Fluid PERITONEAL FLUID / Unknown 04/22/2024 16:30 EDT 04/23/2024 17:01 EDT Narrative [facility] - 04/23/2024 17:19 EDT Peritoneal Fluid Provider Outr Resulting Lab GEN LAB UNIT COLLECT ORDERABLES [facility] [address] [place] [address] * GLUCOSE, FLUID (04/22/2024 16:30 EDT) Glucose, Fluid 85 See Note mg/dL 04/23/2024 17:22 EDT [facility] Comment: Reference range unavailable. Clinical correlation required. This Fluid Glucose assay was developed and its performance characteristics determined by [facility]. ??It has not been cleared or approved by the US Food and Drug Administration. Fluid PERITONEAL FLUID / Unknown 04/22/2024 16:30 EDT 04/23/2024 17:01 EDT Narrative [facility] - 04/23/2024 17:22 EDT Peritoneal Fluid Provider Outr Resulting Lab GEN LAB UNIT COLLECT ORDERABLES [facility] [address] [place] [address] * NON SENIOR SOFTWARE ENGINEER/FNA CYTOLOGY (04/22/2024 16:20 EDT) Note to Patient The following pathology results have been interpreted by your pathologist and may be available to you before your health provider has had the opportunity to review them. Please allow time for your provider to receive these results and explore management options, if applicable. 04/23/2024 15:45 [facility] Final Diagnosis A. PERITONEAL FLUID, CYTOLOGIC EVALUATION: - Negative for malignant cells. - Scattered mesothelial cells and histiocytes present. 04/23/2024 15:45 [facility] Attestation By the signature below, the attending physician certifies that they have personally conducted a gross and/or microscopic examination of the described specimens and rendered or confirmed the above diagnosis. 04/23/2024 15:45 [facility] at 1545 Clinical History K70.30 04/23/2024 15:45 [facility] Gross Description A. 60cc's of opaque yellow fluid were received and processed by selective cellular enhancement technique. 04/23/2024 15:45 EDT [facility] Performing Lab [facility] 04/23/2024 15:45 EDT [facility] Scanned Images 04/23/2024 15:45 EDT [facility] Fluid PERITONEAL FLUID / Unknown 04/22/2024 16:20 EDT 04/23/2024 6:48 EDT Lena Diaz DO PATHOLOGY ORDERABLES [facility] [address] [place], [place] [id number] from Last 3 Months Care Teams Munitions Factory Worker Relationship Specialty Start Date End Date Unknown, Provider, PCP - General 04/10/24 Nadeem Norton PA 04/10/24
--- OUTSIDE RECORDS SUMMARY | 2024-05-01 13:04 | XMS_ITS | Encounter Summary ---
Author Organization [facility] Address [address] [place] [address] Care Team Providers Care Timber Buyer Name Role Phone Unknown, Provider Primary Care Provider Nadeem Norton Unavailable [phone] Encounter Details Date Type Department Care Team (Late st Contact Info) Description 04/23/2024 Lab Requisition [facility] Pathology & Laboratory Medicine - [facility] [address] [place] [address] Lena Diaz, DO [address] [place] [address] Encounter for palliative care; Other specified counseling; [...] specified; Severe sepsis without septic shock (CODE) (HCC-CMS); Sepsis, unspecified organism (HCC-CMS); Generalized edema Social History Tobacco Use Types Packs/Day Years [...] Procedure Name Priority Date/Time Associated Diagnosis Comments NON PRODUCTION CLERKS SUPERVISOR/FNA CYTOLOGY 04/22/2024 16:20 EDT Encounter for palliative [...] specified Severe sepsis without septic shock (CODE) (HCC-CMS) Sepsis, unspecified organism (HCC-CMS) Generalized edema documented in this encounter Results * NON PRODUCTION CLERKS SUPERVISOR/FNA CYTOLOGY (04/22/2024 16:20 EDT) Note to Patient The following pathology results have been interpreted by your pathologist and may be available to you before your health provider has had the opportunity to review them. Please allow time for your provider to receive these results and explore management options, if applicable. 04/23/2024 15:45 [facility] Final Diagnosis A. PERITONEAL FLUID, CYTOLOGIC EVALUATION: - Negative for malignant cells. - Scattered mesothelial cells and histiocytes present. 04/23/2024 15:45 [facility] Attestation By the signature below, the attending physician certifies that they have personally conducted a gross and/or microscopic examination of the described specimens and rendered or confirmed the above diagnosis. 04/23/2024 15:45 [facility] at 1545 Clinical History K70.30 04/23/2024 15:45 [facility] Gross Description A. 60cc's of opaque yellow fluid were received and processed by selective cellular enhancement technique. 04/23/2024 15:45 [facility] Performing Lab [facility] 04/23/2024 15:45 [facility] Scanned Images 04/23/2024 15:45 [facility] Fluid PERITONEAL FLUID / Unknown 04/22/2024 16:20 EDT 04/23/2024 6:48 EDT Lena Diaz DO PATHOLOGY ORDERABLES [facility] [address] [place] [address] documented in this encounter Visit Diagnoses Diagnosis Encounter for palliative care Other specified counseling Acute kidney failure, unspecified (HCC-CMS) Acute kidney failure, unspecified Alcohol use, unspecified, uncomplicated Wheezing Alcohol abuse, uncomplicated Altered mental status, unspecified Supraventricular tachycardia, unspecified (HCC-CMS) Unspecified systolic (congestive) heart failure (HCC-CMS) Alcoholic cirrhosis of liver with ascites (HCC-CMS) Alcoholic cirrhosis of liver Acute respiratory failure with hypoxia (HCC-CMS) Acute respiratory failure Pleural effusion, not elsewhere classified Alcoholic cirrhosis of liver without ascites (HCC-CMS) Alcoholic cirrhosis of liver Urinary tract infection, site not specified Severe sepsis without septic shock (CODE) ([facility]) Sepsis, unspecified organism ([facility]) Generalized edema Edema documented in this encounter Care Teams Timber Buyer Relationship Specialty Start Date End Date Unknown, Provider, PCP - General 04/10/24 Nadeem Norton PA 04/10/24 documented as of this encounter
--- OUTSIDE RECORDS SUMMARY | 2024-05-01 13:04 | XMS_ITS | Encounter Summary ---
Author Organization [facility] Address [address] [place] [address] Care Team Providers Care Inside Finisher Name Role Phone Nadeem Norton Primary Care Provider Encounter Details Date Type Department Care Team (Latest Contact Info) Description 12/18/2014 8:24 EDT - 12/18/2014 23:59 EDT Hospital Encounter [address] [address] Unknown, Provider, Discharge Disposition: Home or Self Care Social History Tobacco Use Types Packs/Day Years Used Date Smoking Tobacco: Never Assessed Sex and Gender Information Value Date Recorded Sex Assigned at Not on file Gender Identity Not on file Sexual Orientation Not on file documented as of this encounter Discharge Disposition Disposition Code Departure Means Destination Home or Self [facility] documented in this encounter Plan of Treatment Not on file documented as of this encounter Visit Diagnoses Not on filedocumented in this encounter Care Teams Inside Finisher Relationship Specialty Start Date End Date Nadeem Norton PA PCP - General 01/26/14 04/09/24 documented as of this encounter
--- OUTSIDE RECORDS SUMMARY | 2024-05-01 13:04 | XMS_ITS | Encounter Summary ---
Author Organization [facility] Address [address] [place] [address] Care Team Providers Care Manager Maritime Name Role Phone Nadeem Norton Primary Care Provider Encounter Details Date Type Department Care Team (Latest Contact Info) Description 01/21/2019 10:55 EDT - 01/21/2019 23:59 EDT Hospital Encounter [address] [address] Unknown, Provider, Discharge Disposition: Home or Self Care Social History Tobacco Use Types Packs/Day Years Used Date Smoking Tobacco: Never Assessed Sex and Gender Information Value Date Recorded Sex Assigned at Not on file Gender Identity Not on file Sexual Orientation Not on file documented as of this encounter Discharge Disposition Disposition Code Departure Means Destination Home or Self Prison documented in this encounter Plan of Treatment Not on file documented as of this encounter Visit Diagnoses Not on filedocumented in this encounter Care Teams Manager Maritime Relationship Specialty Start Date End Date Nadeem Norton PA PCP - General 01/26/14 04/09/24 documented as of this encounter
--- OUTSIDE RECORDS SUMMARY | 2024-05-01 13:04 | XMS_ITS | Encounter Summary ---
Author Organization [facility] Address [address] [place] [address] Care Team Providers Care Port Engineer Name Role Phone Nadeem Norton Primary Care Provider Encounter Details Date Type Department Care Team (Late st Contact Info) Description 12/18/2014 Results Only [facility] [phone] Tika Herrera PA [address] [place] [phone] Social History Tobacco Use Types Packs/Day Years Used Date Smoking Tobacco: Never Assessed Sex and Gender Information Value Date Recorded Sex Assigned at Not on file Gender Identity Not on file Sexual Orientation Not on file documented as of this encounter Plan of Treatment Not on file documented as of this encounter Procedures Procedure Name Priority Date/Time Associated Diagnosis Comments SURGICAL PATHOLOGY Routine 12/18/2014 16 :39 EDT documented in this encounter Results * SURGICAL PATHOLOGY (12/18/2014 16:39 EDT) Pathology Report: SURGICAL PATHOLOGY REPORT Reports generated via electronic interface contain original data; however they are lacking the format of the original report. Caution should be taken when reading/interpret ing unformatted reports. Name: ? PATRICK DELACRUZ ? Accession #: ? [id number] ? : ? 1960 (Age: 54) ??M ? Collect Date: ? 12/18/2014 ? Location: ? [facility] ? Receive Date: ? 12/22/2014 ? Provider: TIKA LUONG Copy to: ? Final Pathologic Diagnosis: SKIN OF HAND, RIGHT DORSAL, PUNCH BIOPSY: - Features suggestive of hypertrophic actinic keratosis. ??See comment. - Lesion extends to the peripheral edge of the biopsy specimen. Comment: The epidermis shows mild basilar atypia, consistent with an actinic keratosis. The overlying stratum corneum within the punch biopsy is associated with entrapped serum. ??Within the dermis are extravasated erythrocytes and reactive blood vessels, suggestive of external irritation/trauma . Per discussion with AG Boston, the lesion had prior cryotherapy. As this is a smaller sampling of a larger lesion, the findings may not be artist's representative of the lesion as a whole. ??Clinical correlation is recommended. ??(Dr. Martinez)/n Document reviewed and electronically signed by: MARGRET MARTINEZ MD Report ??Date: 12/25/2014 15:54 By the signature above, the attending physician certifies that he/she has personally conducted a gross and/or microscopic examination of the described specimens and rendered or confirmed the above diagnosis. Specimen(s) Received: 2.0 mm punch biopsy dorsal right hand Clinical History: Skin lesion; clinical diagnosis code: ??709.9; per discussion with AG Boston: lesion 1.0cm Gross Description: ? Received in formalin labelled with proper patient identification (initials P, D) is a punch biopsy of miller skin (0.2 cm in diameter and 0.2 cm in thickness) as well as two additional fragments of alexander-white to miller skin (0.1 x 0.1 x 0.1 cm and 0.3 x 0.2 x 0.1 cm). ??The punch biopsy is submitted intact in 1 and the additional fragments are submitted in 2. ?? Margret Cedillo 12/23/2014 8:07 AM End of Report [facility] 12/18/2014 16:3 9 EDT 12/22/2014 16:39 EDT AG Shaikh PATHOLOGY ORDERAB LES [facility] [address] [place] [address] documented in this encounter Visit Diagnoses Not on filedocumented in this encounter Care Teams Port Engineer Relationship Specialty Start Date End Date Nadeem Norton PA PCP - General 01/26/14 04/09/24 documented as of this encounter
--- OUTSIDE RECORDS SUMMARY | 2024-05-01 13:04 | XMS_ITS | Referral Summary ---
Author Organization [facility] Address [address] [place] [address] Care Team Providers Care Superintendent Transportation Name Role Phone Unknown, Provider Primary Care Provider Nadeem Norton Unavailable [phone] Encounters Date Type Department Care Team Description 04/23/2024 Lab Requisition [facility] Pathology & Laboratory [address] [address] Lena Diaz, DO Encounter for palliative care; [...] specified; Severe sepsis without septic shock (CODE) ([facility]-CMS); Sepsis, unspecified organism ([facility]-CMS); Generalized edema 04/23/2024 Lab Requisition [facility] [address] [address] Outr Resulting Lab, Provider 04/23/2024 Lab Requisition [facility] [address] [address] Outr Resulting Lab, Provider from Last 3 Months Social History Tobacco Use Types Packs/Day Years Used Date Smoking Tobacco: Never Assessed Interpersonal Safety Answer Date Record ed Physically Hurt Never 04/11/2020 Verbally Threaten Not on file 04/11/2020 Sex and Gender Information Value Date Recorded Sex Assigned at Not on file Gender Identity Not on file Sexual Orientation Not on file Plan of Treatment Not on file Procedures Procedure Name Priority Date/Time Associated Diagnosis Comments GLUCOSE, FLUID Routine 04/22/2024 16:30 EDT ALBUMIN, FLUID Routine 04/22/2024 16:30 EDT NON ERP IMPLEMENTATION CONSULTANT/FNA CYTOLOGY 04/22/2024 16:20 EDT Encounter for palliative [...] specified Severe sepsis without septic shock (CODE) ([facility]) Sepsis, unspecified organism ([facility]) Generalized edema from Last 3 Months Results * ALBUMIN, FLUID (04/22/2024 16:30 EDT) Albumin, Fluid 1.6 See Note g/dL 04/23/2024 17:19 EDT [facility] Comment: Reference range unavailable. Clinical correlation required. This Fluid Albumin assay was developed and its performance characteristics determined by [facility]. ??It has not been cleared or approved by the US Food and Drug Administration. Fluid PERITONEAL FLUID / Unknown 04/22/2024 16:30 EDT 04/23/2024 17:01 EDT Narrative [facility] - 04/23/2024 17:19 EDT Peritoneal Fluid Provider Outr Resulting Lab GEN LAB UNIT COLLECT ORDERABLES [facility] [address], [place] [id number] * GLUCOSE, FLUID (04/22/2024 16:30 EDT) Glucose, Fluid 85 See Note mg/dL 04/23/2024 17:22 EDT [facility] Comment: Reference range unavailable. Clinical correlation required. This Fluid Glucose assay was developed and its performance characteristics determined by [facility]. ??It has not been cleared or approved by the US Food and Drug Administration. Fluid PERITONEAL FLUID / Unknown 04/22/2024 16:30 EDT 04/23/2024 17:01 EDT Narrative [facility] - 04/23/2024 17:22 EDT Peritoneal Fluid Provider Outr Resulting Lab GEN LAB UNIT COLLECT ORDERABLES [facility] [address] [place] [address] * NON ERP IMPLEMENTATION CONSULTANT/FNA CYTOLOGY (04/22/2024 16:20 EDT) Note to Patient The following pathology results have been interpreted by your pathologist and may be available to you before your health provider has had the opportunity to review them. Please allow time for your provider to receive these results and explore management options, if applicable. 04/23/2024 15:45 [facility] Final Diagnosis A. PERITONEAL FLUID, CYTOLOGIC EVALUATION: - Negative for malignant cells. - Scattered mesothelial cells and histiocytes present. 04/23/2024 15:45 [facility] Attestation By the signature below, the attending physician certifies that they have personally conducted a gross and/or microscopic examination of the described specimens and rendered or confirmed the above diagnosis. 04/23/2024 15:45 [facility] at 1545 Clinical History K70.30 04/23/2024 15:45 [facility] Gross Description A. 60cc's of opaque yellow fluid were received and processed by selective cellular enhancement technique. 04/23/2024 15:45 [facility] Performing Lab [facility] 04/23/2024 15:45 [facility] Scanned Images 04/23/2024 15:45 EDT [facility] Fluid PERITONEAL FLUID / Unknown 04/22/2024 16:20 EDT 04/23/2024 6:48 EDT Lena Diaz DO PATHOLOGY ORDERABLES [facility] [address] [place] [address] from Last 3 Months Care Teams Superintendent Transportation Relationship Specialty Start Date End Date Unknown, Provider, PCP - General 04/10/24 Nadeem Norton PA 04/10/24
--- OUTSIDE RECORDS SUMMARY | 2024-05-01 13:04 | XMS_ITS | Encounter Summary ---
Author Organization [facility] Address [address] [place] [address] Care Team Providers Care Tube Building Machine Operator Name Role Phone Unknown, Provider Primary Care Provider [phone] Encounter Details Date Type Department Care Team (Late st Contact Info) Description 01/20/2014 Results Only [facility]- [facility] [phone] Nadeem Norton, PA [address] [place] [phone] Social History Tobacco Use Types Packs/Day Years Used Date Smoking Tobacco: Never Assessed Sex and Gender Information Value Date Recorded Sex Assigned at Not on file Gender Identity Not on file Sexual Orientation Not on file documented as of this encounter Plan of Treatment Not on file documented as of this encounter Procedures Procedure Name Priority Date/Time Associated Diagnosis Comments SURGICAL PATHOLOGY Routine 01/20/2014 10 :40 EDT documented in this encounter Results * SURGICAL PATHOLOGY (01/20/2014 10:40 EDT) Pathology Report: SURGICAL PATHOLOGY REPORT Reports generated via electronic interface contain original data; however they are lacking the format of the original report. Caution should be taken when reading/interpreting unformatted reports. Name: ? PATRICK DELACRUZ ? Accession #: ? [id number] ? : ? 1960 (Age: 54) ??M ? Collect Date: ? 01/20/2014 ? Location: ? [facility] ? Receive Date: ? 01/22/2014 ? Provider: NADEEM LUONG Copy to: ? Final Pathologic Diagnosis: SKIN OF CHEST, LEFT UPPER, SCOOP EXCISION: - Squamous cell carcinoma in situ, inflamed. ?? - Follicular involvement identified. - Lesion focally extends to peripheral edge and base of biopsy specimen. Microscopic Description: The stratum corneum is thickened by confluent parakeratosis. ??The epidermis is hyperplastic with accentuation of the rete architecture. ??The keratinocytes show a significant degree of nuclear atypia that involves the full thickness of the epidermis. ??The cells have an increased nuclear-cytoplasmic ratio with nuclear pleomorphism and hyperchromasia. ??The atypia also involves the epithelium of follicular structures. ??There is a moderately dense lymphohistiocytic infiltrate in the superficial dermis. ??(Dr. Martinez)/n Document reviewed and electronically signed by: MARGRET MARTINEZ MD Report ??Date: 01/23/2014 16:33 By the signature above, the attending physician certifies that he/she has personally conducted a gross and/or microscopic examination of the described specimens and rendered or confirmed the above diagnosis. Specimen(s) Received: Left upper chest scoop excision Clinical History: Erythematous papule with thick scale/crust; clinical diagnosis code: 709.9 Gross Description: ? Received in formalin labelled with proper patient identification (initials P, D) is a shave biopsy of white skin (1.4 x 0.8 x 0.1 cm). There is an off-center pale miller-white firm, slightly nodular papule that measures 0.9 x 0.6 cm by 0.5 cm in height. ??The specimen is sectioned into six sections and submitted entirely in 1 through 3. Mk Brown 01/22/2014 01:44 PM End of Report STEFANI VAZQUEZ [facility] 01/20/2014 10:4 0 EDT 01/22/2014 10:40 EDT Nadeem LUONG PATHOLOGY ORDERABLES [facility] [address] [place] [address] documented in this encounter Visit Diagnoses Not on filedocumented in this encounter Care Teams Tube Building Machine Operator Relationship Specialty Start Date End Date Unknown, Provider, PCP - General 01/22/14 01/25/14 documented as of this encounter
--- NOTE | 2024-05-01 15:36 | NUR.NOTE ---
Referral faxed to [facility] for needs scheduled paricentesis; EDGAR. Nursing Note:
--- NOTE | 2024-05-01 15:50 | ED.GENADUL_ITS ---
Discharge Plan Disposition Patient Disposition: Home Discharge Details Clinical Impression: Alcoholic cirrhosis, Ascites Primary Care Provider: None,None ED Provider: Jacqueline Jett Home Meds and New Rx's Prescriptions: No Action ciprofloxacin HCl 500 mg Tablet 500 mg PO BID Qty: 14 0RF spironolactone 25 mg Tablet 25 mg PO BID Qty: 90 0RF furosemide 80 mg Tablet 80 mg PO BID@0830,1600 Qty: 90 0RF pantoprazole 40 mg Tablet,Delayed Release (Dr/Ec) 40 mg PO DAILY@0730 Qty: 90 0RF metoprolol tartrate 50 mg Tablet 150 mg PO BID Qty: 180 0RF digoxin 125 mcg (0.125 mg) Tablet 0.25 mg PO DAILY Qty: 90 0RF Eliquis 5 mg Tablet 5 mg PO BID Qty: 90 0RF Discharge Instructions Additional Instructions: YOU NEED SCHEDULED PARACENTESIS, THIS IS ARRANGED THROUGH THE SURGERY CLINIC. THEY WILL CONTACT YOU TO SCHEDULE THESE PROCEDURES Discharge Data Discharge Date/Time-TO BE ENTERED AT DEPARTURE: 05/01/24 12:51 HPI General Date/Time Provider Initiated Documentation: 05/01/24 12:30 . Limitations to Documentation: no limitations . Information obtained by: patient, RN/MD and EMS . HPI Narrative: 64-year-old gentleman with past medical history of heart failure, alcohol abuse, alcoholic cirrhosis with ascites and recent hospitalization presents for evaluation. Patient had his primary care appointment scheduled today for follow-up from his recent hospitalization. When asked what he is doing in the emergency department, he states I do not know you will have to call across the street and find out why they told me to come here.. The patient says requests sleeping medicine, he states that he needs a tranquilizer. Related Data Home Medications ?Medication ?Instructions ?Recorded ?Confirmed apixaban 5 mg tablet (Eliquis) 5 mg PO BID #90 tabs 04/24/24 05/01/24 ciprofloxacin HCl 500 mg tablet 500 mg PO BID #14 tabs 04/24/24 05/01/24 digoxin 125 mcg (0.125 mg) tablet 0.25 mg (2 x 125 mcg (0.125 mg)) 04/24/24 05/01/24 PO DAILY #90 tabs furosemide 80 mg tablet 80 mg PO BID@0830,1600 #90 tabs 04/24/24 05/01/24 metoprolol tartrate 50 mg tablet 150 mg (3 x 50 mg) PO BID #180 tabs 04/24/24 05/01/24 pantoprazole 40 mg tablet,delayed 40 mg PO DAILY@0730 #90 tabs 04/24/24 05/01/24 release spironolactone 25 mg tablet 25 mg PO BID #90 tabs 04/24/24 05/01/24 Previous Rx's ?Medication ?Instructions ?Recorded apixaban 5 mg tablet (Eliquis) 5 mg PO BID #90 tabs 04/24/24 ciprofloxacin HCl 500 mg tablet 500 mg PO BID #14 tabs 04/24/24 digoxin 125 mcg (0.125 mg) tablet 0.25 mg (2 x 125 mcg (0.125 mg)) 04/24/24 PO DAILY #90 tabs furosemide 80 mg tablet 80 mg PO BID@0830,1600 #90 tabs 04/24/24 metoprolol tartrate 50 mg tablet 150 mg (3 x 50 mg) PO BID #180 tabs 04/24/24 pantoprazole 40 mg tablet,delayed 40 mg PO DAILY@0730 #90 tabs 04/24/24 release spironolactone 25 mg tablet 25 mg PO BID #90 tabs 04/24/24 Allergies Allergy/AdvReac Type Severity Reaction Status Date / Time No Known Allergies Allergy Verified 05/01/24 12:25 General Stated Complaint: Abd Prob DOMINICK: 3 Exam Narrative Exam Narrative: Review of Systems: All systems reviewed & are unremarkable except as noted in HPI and below Chronically ill-appearing NCAT PERRL, normal conjunctiva RRR no murmur Unlabored respiratory effort clear bilaterally Distended abdomen that is soft with fluid wave, nontender Extremities w/ edema No rashes or lesions. no focal neurologic deficits, no asterixis Course Vital Signs Vital signs: Vital Signs Temperature 36.3 C L 05/01/24 12:18 Pulse 116 H 05/01/24 12:18 Respiratory Rate 18 05/01/24 12:18 Blood Pressure 108/84 05/01/24 12:18 Pulse Oximetry 97 05/01/24 12:18 Temperature 36.3 C L 05/01/24 12:18 Pulse 116 H 05/01/24 12:18 Respiratory Rate 18 05/01/24 12:18 Respiratory Effort Normal 05/01/24 12:33 Blood Pressure 108/84 05/01/24 12:18 Pulse Oximetry 97 05/01/24 12:18 Oxygen Delivery Method Room Air 05/01/24 12:18 Oxygen Flow Rate 0 05/01/24 12:18 Medical Decision Making Patient presented via EMS. The initial call and EMS report was for getting a paracentesis. The patient is unable to state why he came to the emergency department, he states that he was just told to do so. I did speak with the provider at the clinic, who called me. She stated that she told the patient that he did not need to come to the emergency department, but that he would need to get regularly scheduled paracentesis. Reviewed the patient's recent hospitalization and discharge summary. The patient has a soft belly, he has no sick symptoms and no belly tenderness, so I have a low suspicion for SBP. I have placed a referral for follow-up to have the patient scheduled for routine outpatient therapeutic paracentesis as this was not done during his hospital discharge. I informed the the emergency department is not the appropriate location for routine nonemergent paracentesis and that they would contact him to schedule these as an outpatient. I also advised that no tranquilizers would be given and that any sleep medication would need to come from his primary care provider but given his medical comorbidities it is unlikely that he will receive any prescription sedatives. Quality:SDOH Health Related Social Needs: No Data to Display PFSH All Active Problems S/P abdominal paracentesis (Acute) Palliative care encounter (Acute) Alcohol use disorder (Acute) SVT (supraventricular tachycardia) (Chronic) HFrEF (heart failure with reduced ejection fraction) (Acute) EF 23-25% Alcoholic cirrhosis (Acute) Sepsis (Acute) Ascites (Acute) Staghorn calculus (Acute) CHF (congestive heart failure) (Chronic) Renal calculus, left (Acute 11/19/23) Pyelonephritis, acute (Acute 11/19/23) Medical History Anemia Squamous cell skin cancer ETOH abuse Surgical History History of abdominal paracentesis (~04/2024) Status post open reduction and internal fixation (ORIF) of fracture Lower leg Right wrist Social History Smoking/Tobacco Use Status: Current, status unknown Smoking risk assessment performed?: Yes Alcohol Intake: current Substance use type: marijuana Adopted: No Caregiver/Support person: No Foster care: No Housing: apartment Communication Needs: None Pets and animals: No
== END 2024-05-01 12:51 | disposition home or self-care (01) ==
LOC: ER 13:03
PROVIDERS: Emergency Provider Emergency Medicine
DX: K70.31 Alcoholic cirrhosis of liver with ascites (principal)
CPT/HCPCS: 99283

== ENCOUNTER 2024-06-12 13:49 | Outpatient (CLI) | payer MEDICARE, SELFPAY ==
--- NOTE | 2024-06-12 13:45 | RT.EKG_ITS ---
APPROVED REPORT Exam: Resting ECG Reason for Exam: heart failure Patient Location: O HR:134 bpm ECG Measurements Heart Rate 134 AXIS FL 160 P 243 QRSd 174 QRS -4 QT 278 T 195 QTc 415 Conclusion Atrial flutter LVH with secondary repolarization abnormality...multi-LVH criteria, abnrm ST-T
== END 2024-06-12 13:50 | disposition home or self-care (01) ==
LOC: DI.CARD 13:55
PROVIDERS: Visit Provider Internal Medicine Cardiovascular Disease
DX: I50.20 Unspecified systolic (congestive) heart failure (principal)
CPT/HCPCS: 93010

== ENCOUNTER → 2024-06-12 13:49 | Outpatient (BNVA) | payer MEDICARE, SELFPAY | PROVIDERS: Visit Provider Internal Medicine Cardiovascular Disease | DX: K70.31 Alcoholic cirrhosis of liver with ascites (principal); I48.92 Unspecified atrial flutter; I50.20 Unspecified systolic (congestive) heart failure | CPT/HCPCS: 93005; 99214 ==

== ENCOUNTER 2024-06-27 09:18 | Outpatient (CLI) | payer MEDICARE, SELFPAY ==
--- NOTE | 2024-06-27 14:06 | DI.RAD_ITS ---
Exam(s) XR HIP LT COMPLETE AP PELVIS XR LUMBAR SPINE COMPLETE EXAM: XR LUMBAR SPINE COMPLETE and XR hip LT complete and AP pelvis CLINICAL HISTORY: M54.50 chronic low back pain. TECHNIQUE: 2D digital imaging was performed of the left hip and lumbar spine. Eight images were obt ained. AP, lateral, right oblique, left oblique and L5-S1 spot views were obtained. COMPARISON: CT CT CHEST/ABD/PEL WO from 04/13/2024 FINDINGS: BONES: No fracture or destructive lesion. Endplate osteophytes are present throughout the lumbar spin e. Degenerative changes of the facets are seen at L4-5 and L5-S1. There is again seen sclerosis of t he left hemipelvis consistent with Paget's disease. There is mild narrowing of the left hip joint sp jil. The hip is otherwise well maintained. DISKS: There is disc space narrowing at L3-4. Vacuum discs are seen at L3-L4 and L4-L5. ALIGNMENT: There is a left convex curvature of the thoracolumbar spine. No spondylolysis or spondylo listhesis. SOFT TISSUE: Vascular calcifications are present. IMPRESSION: 1. Degenerative changes seen in the lumbar spine which are moderate. 2. Mild degenerative changes seen in the left hip. 3. Findings of Paget's disease in the pelvis. DATA REPOSITORY: RADIATION DOSE DELIVERED:
--- NOTE | 2024-06-27 14:07 | DI.RAD_ITS ---
Exam(s) XR KNEE LT 3V AP,LAT,ARMANDO EXAM: XR KNEE LT 3V AP,LAT,ARMANDO CLINICAL HISTORY: M25.562 left knee pain. TECHNIQUE: 2D digital imaging was performed of the left knee. Three images were obtained. AP, late ral and PA tunnel views were obtained. COMPARISON: No priors for comparison. FINDINGS: BONES: No acute fracture is present. No bony destructive lesion is seen. There is an enthesophyte at the superior patella. JOINTS: The knee is normally aligned. No joint effusion is seen. No loose body. SOFT TISSUE: Vascular calcifications are present. IMPRESSION: No acute abnormality. DATA REPOSITORY: RADIATION DOSE DELIVERED:
== END 2024-06-27 09:38 ==
LOC: DI 09:18
PROVIDERS: Visit Provider Nurse Practitioner
DX: M51.372 Other intervertebral disc degeneration, lumbosacral region with discogenic back pain and lower extremity pain (principal)
CPT/HCPCS: 73562; 72110; 73502

== ENCOUNTER → 2024-07-07 13:44 | Outpatient (BNVA) | payer MEDICARE, SELFPAY | PROVIDERS: PCP Nurse Practitioner; Referring Provider Nurse Practitioner; Visit Provider Surgery | DX: K70.31 Alcoholic cirrhosis of liver with ascites (principal); I50.20 Unspecified systolic (congestive) heart failure; I48.92 Unspecified atrial flutter; I47.10 Supraventricular tachycardia, unspecified | CPT/HCPCS: 76705; 99213 ==

== ENCOUNTER 2024-07-07 15:27 | Outpatient (CLI) | payer MEDICARE, SELFPAY ==
[2024-07-07 15:15] LABS: Abs Immature Grans 0.03 10^3/uL (0.0-0.06); Absolute Basophil Count 0.04 10^3/uL (0.0-0.2); Absolute Eosinophil Count 0.13 10^3/uL (0.0-0.7); Absolute Lymphocyte Count 1.65 10^3/uL (1.2-3.4); Absolute Monocyte Count 0.92 10^3/uL (0.1-0.8); Absolute Neutrophil Count 5.19 10^3/uL (1.2-6.7); Basophils % 0.5 %; Eosinophils % 1.6 %; HCT 48.4 % (40.0-50.0); HGB 15.3 g/dL (13.5-17.5); Immature Grans % 0.4 %; Lymphocytes % 20.7 %; MCH 29.5 pg (27.0-33.0); MCHC 31.6 % (32.0-36.0); MCV 93 fL (80-95); MPV 9.7 fL (8.0-11.0); Monocytes % 11.6 %; Neutrophils % 65.2 %; Platelet Count 317 10^3/uL (130-400); RBC 5.19 10^6/uL (4.36-5.78); RDW-SD 58.5 fL; WBC 7.96 10^3/uL (4.4-10.8)
--- OUTSIDE RECORDS SUMMARY | 2024-07-07 15:29 | XMS_ITS | Encounter Summary ---
Author Organization [facility] Address [address] [place] [address] Care Team Providers Care Medical Office Technician Name Role Phone Nadeem Norton Primary Care Provider Encounter Details Date Type Department Care Team (Latest Contact Info) Description 01/21/2019 10:55 EDT - 01/21/2019 23:59 EDT Hospital Encounter [address] [address] Unknown, Provider, Discharge Disposition: Home or Self Care Social History Tobacco Use Types Packs/Day Years Used Date Smoking Tobacco: Never Assessed Sex and Gender Information Value Date Recorded Sex Assigned at Not on file Gender Identity Not on file Sexual Orientation Not on file documented as of this encounter Discharge Disposition Disposition Code Departure Means Destination Home or Self [facility] documented in this encounter Plan of Treatment Not on file documented as of this encounter Visit Diagnoses Not on filedocumented in this encounter Care Teams Medical Office Technician Relationship Specialty Start Date End Date Nadeem Norton PA PCP - General 01/26/14 04/09/24 documented as of this encounter
--- OUTSIDE RECORDS SUMMARY | 2024-07-07 15:29 | XMS_ITS | Encounter Summary ---
Author Organization [facility] Address [address] [place] [address] Care Team Providers Care Cloth Printing Back Tender Name Role Phone Nadeem Norton Primary Care Provider Encounter Details Date Type Department Care Team (Late st Contact Info) Description 12/18/2014 Results Only [facility]- [facility] [phone] Tika Herrera PA [address] [place] [id number] Social History Tobacco Use Types Packs/Day Years [...] ? PATRICK DELACRUZ ? Accession #: ? [id number] ? : ? 1960 (Age: 54) ??M [...] larger lesion, the findings may not be industrial relations representative of the lesion as a whole. [...] [place] 12/23/2014 8:07 AM End of Report [facility] 12/18/2014 16:3 9 EDT 12/22/2014 16:39 EDT AG Shaikh PATHOLOGY ORDERAB LES [facility] [address] [place] [address] documented in this encounter Visit Diagnoses Not on filedocumented in this encounter Care Teams Cloth Printing Back Tender Relationship Specialty Start Date End Date Nadeem Norton PA PCP - General 01/26/14 04/09/24 documented as of this encounter
--- OUTSIDE RECORDS SUMMARY | 2024-07-07 15:29 | XMS_ITS | Referral Summary ---
Author Organization [facility] Address [address] [place] [address] Care Team Providers Care Dbas Name Role Phone Unknown, Provider Primary Care Provider [phone] Nadeem Norton Unavailable [phone] Encounters Date Type Department Care Team Description 04/23/2024 Lab Requisition [facility] [address] [address] Lena Diaz, DO Encounter for palliative care; [...] specified; Severe sepsis without septic shock (CODE) ([facility]); Sepsis, unspecified organism ([facility]); Generalized edema 04/23/2024 Lab Requisition [facility] [address] [address] Outr Resulting Lab, Provider 04/23/2024 Lab Requisition [facility] [address] [address] Outr Resulting Lab, Provider from Last 3 [...] ALBUMIN, FLUID Routine 04/22/2024 16:30 EDT NON TOP DYEING MACHINE LOADER/FNA CYTOLOGY 04/22/2024 16:20 EDT Encounter for palliative [...] specified Severe sepsis without septic shock (CODE) ([facility]) Sepsis, unspecified organism ([facility]) Generalized edema from Last 3 Months Results * ALBUMIN, FLUID (04/22/2024 16:30 EDT) Albumin, Fluid 1.6 See Note g/dL 04/23/2024 17:19 EDT [facility] Comment: Reference range unavailable. Clinical correlation required. This Fluid Albumin assay was developed and its performance characteristics determined by [facility]. ??It has not been cleared or approved by the [place] Food and Drug Administration. Fluid PERITONEAL FLUID / Unknown 04/22/2024 16:30 EDT 04/23/2024 17:01 EDT Narrative [facility] - 04/23/2024 17:19 EDT Peritoneal Fluid Provider Outr Resulting Lab GEN LAB UNIT COLLECT ORDERABLES [facility] [address] [place], [place] [id number] * GLUCOSE, FLUID (04/22/2024 16:30 EDT) Glucose, Fluid 85 See Note mg/dL 04/23/2024 17:22 EDT [facility] Comment: Reference range unavailable. Clinical correlation required. This Fluid Glucose assay was developed and its performance characteristics determined by [facility]. ??It has not been cleared or approved by the [place] Food and Drug Administration. Fluid PERITONEAL FLUID / Unknown 04/22/2024 16:30 EDT 04/23/2024 17:01 EDT Narrative [facility] - 04/23/2024 17:22 EDT Peritoneal Fluid Provider Outr Resulting Lab GEN LAB UNIT COLLECT ORDERABLES [facility] [address] [place] [address] * NON TOP DYEING MACHINE LOADER/FNA CYTOLOGY (04/22/2024 16:20 EDT) Note to Patient The following pathology results have been interpreted by your pathologist and may be available to you before your health provider has had the opportunity to review them. Please allow time for your provider to receive these results and explore management options, if applicable. 04/23/2024 15:45 [facility] Final Diagnosis A. PERITONEAL FLUID, CYTOLOGIC EVALUATION: - Negative for malignant cells. - Scattered mesothelial cells and histiocytes present. 04/23/2024 15:45 [facility] Attestation By the signature below, the attending physician certifies that they have personally conducted a gross and/or microscopic examination of the described specimens and rendered or confirmed the above diagnosis. 04/23/2024 15:45 [facility] at 1545 Clinical History K70.30 04/23/2024 15:45 [facility] Gross Description A. 60cc's of opaque yellow fluid were received and processed by selective cellular enhancement technique. 04/23/2024 15:45 [facility] Performing Lab [facility] 04/23/2024 15:45 [facility] Scanned Images 04/23/2024 15:45 EDT [facility] Fluid PERITONEAL FLUID / Unknown 04/22/2024 16:20 EDT 04/23/2024 6:48 EDT Lena Diaz DO PATHOLOGY ORDERABLES [facility] [address] [place] [address] from Last 3 Months Care Teams Dbas Relationship Specialty Start Date End Date Unknown, Provider, PCP - General 04/10/24 Nadeem Norton PA 04/10/24
--- OUTSIDE RECORDS SUMMARY | 2024-07-07 15:29 | XMS_ITS | Encounter Summary ---
Author Organization [facility] Address [address] [place] [address] Care Team Providers Care Hydraulic Press Servicer Name Role Phone Unavailable Primary Care Provider Unavailabl e Encounter Details Date Type Department Care Team (Latest Contact Info) Description 01/20/2014 11:16 EDT - 01/20/2014 23:59 EDT Hospital Encounter [address] [address] Unknown, Provider, Discharge Disposition: Home or Self Care Social History Tobacco Use Types Packs/Day Years Used Date Smoking Tobacco: Never Assessed Sex and Gender Information Value Date Recorded Sex Assigned at Not on file Gender Identity Not on file Sexual Orientation Not on file documented as of this encounter Discharge Disposition Disposition Code Departure Means Destination Home or Self Retirement documented in this encounter Plan of Treatment Not on file documented as of this encounter Visit Diagnoses Not on filedocumented in this encounter
--- OUTSIDE RECORDS SUMMARY | 2024-07-07 15:29 | XMS_ITS | Encounter Summary ---
Author Organization [facility] Address [address] [place] [address] Care Team Providers Care Ssrs Developer Name Role Phone Nadeem Norton Primary Care Provider Encounter Details Date Type Department Care Team (Late st Contact Info) Description 01/21/2019 Results Only [facility]- [facility] [phone] Kyle Venegas, [address] [place], [place] [id number] Social History Tobacco Use Types Packs/Day Years [...] ? PATRICK DELACRUZ ? Accession #: ? [id number] ? : ? 1960 (Age: 59) ??M [...] inked, trisected and submitted 1. AG Tee ([facility]) 01/22/2019 4:31 PM End of Report [facility] 01/21/2019 16:0 5 EDT 01/22/2019 16:05 EDT Kyle Venegas DO PATHOLOGY ORDER CARLO [facility] [address] [place] [address] documented in this encounter Visit Diagnoses Not on filedocumented in this encounter Care Teams Ssrs Developer Relationship Specialty Start Date End Date Nadeem Norton PA PCP - General 01/26/14 04/09/24 documented as of this encounter
--- OUTSIDE RECORDS SUMMARY | 2024-07-07 15:29 | XMS_ITS | Encounter Summary ---
Author Organization [facility] Address [address] [place] [address] Care Team Providers Care Motorbike Courier Name Role Phone Unknown, Provider Primary Care Provider Nadeem Norton Unavailable [phone] Encounter Details Date Type Department Care Team (Late st Contact Info) Description 04/23/2024 Lab Requisition [facility] Pathology & Laboratory Medicine - [facility] [address] [place] [address] Outr Resulting Lab, Provider Social History Tobacco [...] 85 See Note mg/dL 04/23/2024 17:22 EDT [facility] Comment: Reference range unavailable. Clinical correlation required. This Fluid Glucose assay was developed and its performance characteristics determined by [facility]. ??It has not been cleared or approved by the US Food and Drug Administration. Fluid PERITONEAL FLUID / Unknown 04/22/2024 16:30 EDT 04/23/2024 17:01 EDT Narrative [facility] - 04/23/2024 17:22 EDT Peritoneal Fluid Provider Outr Resulting Lab GEN LAB UNIT COLLECT ORDERABLES [facility] [address] [place] [address] documented in this encounter Visit Diagnoses Not on filedocumented in this encounter Care Teams Motorbike Courier Relationship Specialty Start Date End Date Unknown, Provider, PCP - General 04/10/24 Nadeem Norton PA 04/10/24 documented as of this encounter
--- OUTSIDE RECORDS SUMMARY | 2024-07-07 15:29 | XMS_ITS | Clinical Summary ---
Author Organization [facility] Address [address] [place] [address] Care Team Providers Care Boom Operator Name Role Phone Unknown, Provider Primary Care Provider [phone] Nadeem Norton Unavailable [phone] Encounters Date Type Department Care Team Description 04/23/2024 Lab Requisition [facility] [address] [address] Lena Diaz, DO Encounter for palliative care; [...] specified; Severe sepsis without septic shock (CODE) ([facility]); Sepsis, unspecified organism ([facility]); Generalized edema 04/23/2024 Lab Requisition [facility] [address] [address] Outr Resulting Lab, Provider 04/23/2024 Lab Requisition [facility] [address] [address] Outr Resulting Lab, Provider from Last 3 [...] ALBUMIN, FLUID Routine 04/22/2024 16:30 EDT NON INTERNAL COMMUNICATIONS MANAGER/FNA CYTOLOGY 04/22/2024 16:20 EDT Encounter for palliative [...] specified Severe sepsis without septic shock (CODE) ([facility]) Sepsis, unspecified organism ([facility]) Generalized edema from Last 3 Months Results * ALBUMIN, FLUID (04/22/2024 16:30 EDT) Albumin, Fluid 1.6 See Note g/dL 04/23/2024 17:19 EDT [facility] Comment: Reference range unavailable. Clinical correlation required. This Fluid Albumin assay was developed and its performance characteristics determined by [facility]. ??It has not been cleared or approved by the US Food and Drug Administration. Fluid PERITONEAL FLUID / Unknown 04/22/2024 16:30 EDT 04/23/2024 17:01 EDT Narrative [facility] - 04/23/2024 17:19 EDT Peritoneal Fluid Provider Outr Resulting Lab GEN LAB UNIT COLLECT ORDERABLES [facility] [address] [place] [address] * GLUCOSE, FLUID (04/22/2024 16:30 EDT) Glucose, Fluid 85 See Note mg/dL 04/23/2024 17:22 EDT [facility] Comment: Reference range unavailable. Clinical correlation required. This Fluid Glucose assay was developed and its performance characteristics determined by [facility]. ??It has not been cleared or approved by the US Food and Drug Administration. Fluid PERITONEAL FLUID / Unknown 04/22/2024 16:30 EDT 04/23/2024 17:01 EDT Narrative [facility] - 04/23/2024 17:22 EDT Peritoneal Fluid Provider Outr Resulting Lab GEN LAB UNIT COLLECT ORDERABLES [facility] [address] [place] [address] * NON INTERNAL COMMUNICATIONS MANAGER/FNA CYTOLOGY (04/22/2024 16:20 EDT) Note to Patient The following pathology results have been interpreted by your pathologist and may be available to you before your health provider has had the opportunity to review them. Please allow time for your provider to receive these results and explore management options, if applicable. 04/23/2024 15:45 [facility] Final Diagnosis A. PERITONEAL FLUID, CYTOLOGIC EVALUATION: - Negative for malignant cells. - Scattered mesothelial cells and histiocytes present. 04/23/2024 15:45 [facility] Attestation By the signature below, the attending physician certifies that they have personally conducted a gross and/or microscopic examination of the described specimens and rendered or confirmed the above diagnosis. 04/23/2024 15:45 [facility] at 1545 Clinical History K70.30 04/23/2024 15:45 [facility] Gross Description A. 60cc's of opaque yellow fluid were received and processed by selective cellular enhancement technique. 04/23/2024 15:45 EDT [facility] Performing Lab [facility] 04/23/2024 15:45 EDT [facility] Scanned Images 04/23/2024 15:45 EDT [facility] Fluid PERITONEAL FLUID / Unknown 04/22/2024 16:20 EDT 04/23/2024 6:48 EDT Lena Diaz DO PATHOLOGY ORDERABLES [facility] [address] [place], [place] [id number] from Last 3 Months Care Teams Boom Operator Relationship Specialty Start Date End Date Unknown, Provider, PCP - General 04/10/24 Nadeem Norton PA 04/10/24
--- OUTSIDE RECORDS SUMMARY | 2024-07-07 15:29 | XMS_ITS | Encounter Summary ---
Author Organization [facility] Address [address] [place] [address] Care Team Providers Care Map Maker Name Role Phone Unknown, Provider Primary Care Provider [phone] Encounter Details Date Type Department Care Team (Late st Contact Info) Description 01/20/2014 Results Only [facility] [phone] Nadeem Norton, PA [address] [place] [id number] Social History Tobacco Use Types Packs/Day Years [...] ? PATRICK DELACRUZ ? Accession #: ? [id number] ? : ? 1960 (Age: 54) ??M [...] 01:44 PM End of Report STEFANI VAZQUEZ [facility] 01/20/2014 10:4 0 EDT 01/22/2014 10:40 EDT Nadeem LUONG PATHOLOGY ORDERABLES [facility] [address] [place] [address] documented in this encounter Visit Diagnoses Not on filedocumented in this encounter Care Teams Map Maker Relationship Specialty Start Date End Date Unknown, Provider, PCP - General 01/22/14 01/25/14 documented as of this encounter
--- OUTSIDE RECORDS SUMMARY | 2024-07-07 15:29 | XMS_ITS | Encounter Summary ---
Author Organization [facility] Address [address] [place] [address] Care Team Providers Care Physiologist Name Role Phone Unknown, Provider Primary Care Provider Nadeem Norton Unavailable [phone] Encounter Details Date Type Department Care Team (Late st Contact Info) Description 04/23/2024 Lab Requisition [facility] Pathology & Laboratory Medicine - [facility] [address] [place] [address] Outr Resulting Lab, Provider Social History Tobacco [...] 1.6 See Note g/dL 04/23/2024 17:19 EDT [facility] Comment: Reference range unavailable. Clinical correlation required. This Fluid Albumin assay was developed and its performance characteristics determined by [facility]. ??It has not been cleared or approved by the US Food and Drug Administration. Fluid PERITONEAL FLUID / Unknown 04/22/2024 16:30 EDT 04/23/2024 17:01 EDT Narrative [facility] - 04/23/2024 17:19 EDT Peritoneal Fluid Provider Outr Resulting Lab GEN LAB UNIT COLLECT ORDERABLES [facility] [address] [place] [address] documented in this encounter Visit Diagnoses Not on filedocumented in this encounter Care Teams Physiologist Relationship Specialty Start Date End Date Unknown, Provider, PCP - General 04/10/24 Nadeem Norton PA 04/10/24 documented as of this encounter
--- OUTSIDE RECORDS SUMMARY | 2024-07-07 15:29 | XMS_ITS | Encounter Summary ---
Author Organization [facility] Address [address] [place] [address] Care Team Providers Care Director Payer Name Role Phone Unknown, Provider Primary Care Provider Nadeem Norton Unavailable [phone] Encounter Details Date Type Department Care Team (Late st Contact Info) Description 04/23/2024 Lab Requisition [facility] Pathology & Laboratory Medicine - [facility] [address] [place] [address] Lena Diaz, DO [address] [place] [address] Encounter for palliative care; Other [...] Name Priority Date/Time Associated Diagnosis Comments NON SUPERVISOR PIPE JOINTS/FNA CYTOLOGY 04/22/2024 16:20 EDT Encounter for palliative [...] documented in this encounter Results * NON SUPERVISOR PIPE JOINTS/FNA CYTOLOGY (04/22/2024 16:20 EDT) Note to Patient The following pathology results have been interpreted by your pathologist and may be available to you before your health provider has had the opportunity to review them. Please allow time for your provider to receive these results and explore management options, if applicable. 04/23/2024 15:45 [facility] Final Diagnosis A. PERITONEAL FLUID, CYTOLOGIC EVALUATION: - Negative for malignant cells. - Scattered mesothelial cells and histiocytes present. 04/23/2024 15:45 [facility] Attestation By the signature below, the attending physician certifies that they have personally conducted a gross and/or microscopic examination of the described specimens and rendered or confirmed the above diagnosis. 04/23/2024 15:45 [facility] at 1545 Clinical History K70.30 04/23/2024 15:45 [facility] Gross Description A. 60cc's of opaque yellow fluid were received and processed by selective cellular enhancement technique. 04/23/2024 15:45 [facility] Performing Lab [facility] 04/23/2024 15:45 [facility] Scanned Images 04/23/2024 15:45 [facility] Fluid PERITONEAL FLUID / Unknown 04/22/2024 16:20 EDT 04/23/2024 6:48 EDT Lena Diaz DO PATHOLOGY ORDERABLES [facility] [address] [place] [address] documented in this encounter Visit Diagnoses Diagnosis [...] specified Severe sepsis without septic shock (CODE) ([facility]) Sepsis, unspecified organism ([facility]) Generalized edema Edema documented in this encounter Care Teams Director Payer Relationship Specialty Start Date End Date Unknown, Provider, PCP - General 04/10/24 Nadeem Norton PA 04/10/24 documented as of this encounter
--- OUTSIDE RECORDS SUMMARY | 2024-07-07 15:29 | XMS_ITS | Encounter Summary ---
Author Organization [facility] Address [address] [place] [address] Care Team Providers Care Main Line Station Engineer Name Role Phone Nadeem Norton Primary Care Provider Encounter Details Date Type Department Care Team (Latest Contact Info) Description 12/18/2014 8:24 EDT - 12/18/2014 23:59 EDT Hospital Encounter [address] [address] Unknown, Provider, Discharge Disposition: Home or Self Care Social History Tobacco Use Types Packs/Day Years Used Date Smoking Tobacco: Never Assessed Sex and Gender Information Value Date Recorded Sex Assigned at Not on file Gender Identity Not on file Sexual Orientation Not on file documented as of this encounter Discharge Disposition Disposition Code Departure Means Destination Home or Self Intermediate documented in this encounter Plan of Treatment Not on file documented as of this encounter Visit Diagnoses Not on filedocumented in this encounter Care Teams Main Line Station Engineer Relationship Specialty Start Date End Date Nadeem Norton PA PCP - General 01/26/14 04/09/24 documented as of this encounter
[2024-07-07 15:31] LABS: INR 1.1 (0.9-1.1); Prothrombin Time 10.6 sec (9.1-11.1)
[2024-07-07 15:42] LABS: Digoxin 1.08 ng/mL (0.90-2.00); Ferritin 38 ng/mL (26-388)
[2024-07-07 17:09] LABS: NT-proBNP 2041 pg/mL (<300)
[2024-07-07 17:45] LABS: ALT 16 U/L (16-63); AST 19 U/L (15-37); Albumin 3.7 g/dL (3.4-5.0); Alkaline Phosphatase 296 U/L (46-116); Bilirubin, Total 0.71 mg/dL (0.2-1.0); Magnesium 1.9 mg/dL (1.8-2.4); Total Protein 8.4 g/dL (6.4-8.2); Vitamin B12 303 pg/mL (193-986)
[2024-07-07 17:54] LABS: Folate > 20.0 ng/mL (8.6-20.0)
[2024-07-07 18:06] LABS: Bilirubin, Direct 0.1 mg/dL (0.0-0.2)
== END 2024-07-07 15:28 | disposition home or self-care (01) ==
LOC: LBO 15:28
PROVIDERS: Family Medicine; PCP Nurse Practitioner; Visit Provider Surgery
DX: I47.10 Supraventricular tachycardia, unspecified (principal); I50.9 Heart failure, unspecified; I50.20 Unspecified systolic (congestive) heart failure; I48.92 Unspecified atrial flutter; K70.31 Alcoholic cirrhosis of liver with ascites; F10.10 Alcohol abuse, uncomplicated; D64.9 Anemia, unspecified
CPT/HCPCS: 36415; 80076; 80162; 82607; 82728; 82746; 83735; 83880; 85025; 85610

== ENCOUNTER 2024-07-24 12:56 | Outpatient (CLI) | payer MEDICARE, SELFPAY ==
--- OUTSIDE RECORDS SUMMARY | 2024-07-24 13:03 | XMS_ITS | Encounter Summary ---
Author Organization [facility] Address [address] [place] [address] Care Team Providers Care Boat Rental Clerk Name Role Phone Unavailable Primary Care Provider Unavailabl e Encounter Details Date Type Department Care Team (Latest Contact Info) Description 01/20/2014 11:16 EDT - 01/20/2014 23:59 EDT Hospital Encounter [address] [address] Unknown, Provider, MD Discharge Disposition: Home or Self Care Social History Tobacco Use Types Packs/Day Years Used Date Smoking Tobacco: Never Assessed Sex and Gender Information Value Date Recorded Sex Assigned at Not on file Legal Sex Male 10:39 EDT Gender Identity Not on file Sexual Orientation Not on file documented as of this encounter Discharge Disposition Disposition Code Departure Means Destination Home or Self Halfway documented in this encounter Plan of Treatment Not on file documented as of this encounter Visit Diagnoses Not on filedocumented in this encounter
--- OUTSIDE RECORDS SUMMARY | 2024-07-24 13:03 | XMS_ITS | Encounter Summary ---
Author Organization [facility] Address [address] [place] [address] Care Team Providers Care Solder Making Supervisor Name Role Phone Nadeem Norton Primary Care Provider Encounter Details Date Type Department Care Team (Late st Contact Info) Description 01/21/2019 Results Only [facility] [phone] Kyle Venegas, [address] [place], [place] [id number] Social History Tobacco Use Types Packs/Day Years [...] ? PATRICK DELACRUZ ? Accession #: ? [id number] ? : ? 1960 (Age: 59) ??M ? Collect Date: ? 01/21/2019 ? Location: ? [facility] ? Receive Date: ? 01/22/2019 ? Provider: KYLE EVNEGAS DO Copy to: ALEKSANDR CALVIN DO ? Final Pathologic Diagnosis: SKIN OF [...] inked, trisected and submitted 1. AG Tee (ASCP) 01/22/2019 4:31 PM End of Report [facility] 01/21/2019 16:0 5 EDT 01/22/2019 16:05 EDT us Kyle Venegas DO PATHOLOGY ORDERABLES Fi nal Result [facility] [address] [place] [address] documented in this encounter Visit Diagnoses Not on filedocumented in this encounter Care Teams Solder Making Supervisor Relationship Specialty Start Date End Date Nadeem Norton PA PCP - General 01/26/14 04/09/24 documented as of this encounter
--- OUTSIDE RECORDS SUMMARY | 2024-07-24 13:03 | XMS_ITS | Encounter Summary ---
Author Organization [facility] Address [address] [place] [address] Care Team Providers Care Special Needs Babysitter Name Role Phone Unknown, Provider Primary Care Provider Unava ilable Encounter Details Date Type Department Care Team (Late st Contact Info) Description 01/20/[address] [facility] [phone] Nadeem Norton, AG [address] [place] [id number] Social History Tobacco Use Types Packs/Day Years [...] ? PATRICK DELACRUZ ? Accession #: ? [id number] ? : ? 1960 (Age: 54) ??M [...] 01:44 PM End of Report [facility] 01/20/2014 10:4 0 EDT 01/22/2014 10:40 EDT us Nadeem LUONG PATHOLOGY ORDERABLES Final Resu lt [facility] [address] [place] [address] documented in this encounter Visit Diagnoses Not on filedocumented in this encounter Care Teams Special Needs Babysitter Relationship Specialty Start Date End Date Unknown, Provider, PCP - General 01/22/14 01/25/14 documented as of this encounter
--- OUTSIDE RECORDS SUMMARY | 2024-07-24 13:03 | XMS_ITS | Encounter Summary ---
Author Organization [facility] Address [address] [place] [address] Care Team Providers Care Nut Former Name Role Phone Unknown, Provider Primary Care Provider Nadeem Neri Unavailable [phone] Encounter Details Date Type Department Care Team (Late st Contact Info) Description 04/23/2024 Lab Requisition [facility] Pathology & Laboratory Medicine - [facility] [address] [place], [place] [id number] Outr Resulting Lab, Provider Social History Tobacco [...] 85 See Note mg/dL 04/23/2024 17:22 EDT [facility] Comment: Reference range unavailable. Clinical correlation required. This Fluid Glucose assay was developed and its performance characteristics determined by [facility]. ??It has not been cleared or approved by the US Food and Drug Administration. Fluid PERITONEAL FLUID / Unknown 04/22/2024 16:30 EDT 04/23/2024 17:01 EDT Narrative [facility] - 04/23/2024 17:22 EDT Peritoneal Fluid us Provider Outr Resulting Lab GEN LAB UNIT COLLECT ORDERABLES Final Result [facility] [address] [place] [address] documented in this encounter Visit Diagnoses Not on filedocumented in this encounter Care Teams Nut Former Relationship Specialty Start Date End Date Unknown, Provider, PCP - General 04/10/24 Nadeem Norton PA 04/10/24 documented as of this encounter
--- OUTSIDE RECORDS SUMMARY | 2024-07-24 13:03 | XMS_ITS | Clinical Summary ---
Author Organization [facility] Address [address] [place] [address] Care Team Providers Care Short Haul Driver Name Role Phone Unknown, Provider Primary Care Provider Nadeem Neri Unavailable [phone] Social History Tobacco Use Types Packs/Day Years [...] Last Done Comments Hepatitis C Screen 1960 COVID-19 Vaccine (2023-25 season) 2024 RSV Immunization ( o r 60+ Years) (1 - 1-dose 75+ series) 01/16/2035 Insurance [address] [place] [address] MEDICARE Care Teams Short Haul Driver Relationship Specialty Start Date End Date Unknown, Provider, PCP - General 04/10/24 Nadeem Norton PA 04/10/24
--- OUTSIDE RECORDS SUMMARY | 2024-07-24 13:03 | XMS_ITS | Referral Summary ---
Author Organization [facility] Address [address] [place] [address] Care Team Providers Care Cigar Packer And Sorter Name Role Phone Unknown, Provider Primary Care Provider Nadeem Neri Unavailable [phone] Social History Tobacco Use Types Packs/Day [...] file Plan of Treatment Not on file Insurance [address] [place] [address] MEDICARE [address] [place] [address] Care Teams Cigar Packer And Sorter Relationship Specialty Start Date End Date Unknown, Provider, PCP - General 04/10/24 Nadeem Norton PA 04/10/24
--- OUTSIDE RECORDS SUMMARY | 2024-07-24 13:03 | XMS_ITS | Encounter Summary ---
Author Organization [facility] Address [address] [place] [address] Care Team Providers Care Climate Change Analyst Name Role Phone Nadeem Norton Primary Care Provider Encounter Details Date Type Department Care Team (Latest Contact Info) Description 01/21/2019 10:55 EDT - 01/21/2019 23:59 EDT Hospital Encounter [address] [address] Unknown, Provider, MD Discharge Disposition: Home or [...] Code Departure Means Destination Home or Self Longterm documented in this encounter Plan of Treatment Not on file documented as of this encounter Visit Diagnoses Not on filedocumented in this encounter Care Teams Climate Change Analyst Relationship Specialty Start Date End Date Nadeem Norton PA PCP - General 01/26/14 04/09/24 documented as of this encounter
--- OUTSIDE RECORDS SUMMARY | 2024-07-24 13:03 | XMS_ITS | Encounter Summary ---
Author Organization [facility] Address [address] [place] [address] Care Team Providers Care Energy Conservation Director Name Role Phone Nadeem Norton Primary Care Provider Encounter Details Date Type Department Care Team (Late st Contact Info) Description 12/18/2014 Results Only [facility] [phone] Tika Herrera PA [address] [place] [id number] Social History Tobacco Use Types Packs/Day Years [...] ? PATRICK DELACRUZ ? Accession #: ? [id number] ? : ? 1960 (Age: 54) ??M [...] larger lesion, the findings may not be benefits representative of the lesion as a whole. [...] [place] 12/23/2014 8:07 AM End of Report [facility] 12/18/2014 16:3 9 EDT 12/22/2014 16:39 EDT us AG Shaikh PATHOLOGY ORDERABLES Kristyn harris Result [facility] [address] [place] [address] documented in this encounter Visit Diagnoses Not on filedocumented in this encounter Care Teams Energy Conservation Director Relationship Specialty Start Date End Date Nadeem Norton PA PCP - General 01/26/14 04/09/24 documented as of this encounter
--- OUTSIDE RECORDS SUMMARY | 2024-07-24 13:03 | XMS_ITS | Encounter Summary ---
Author Organization [facility] Address [address] [place] [address] Care Team Providers Care Bowling Floor Desk Clerk Name Role Phone Unknown, Provider Primary Care Provider Nadeem Neri Unavailable [phone] Encounter Details Date Type Department Care Team (Late st Contact Info) Description 04/23/2024 Lab Requisition [facility] Pathology & Laboratory Medicine - [facility] [address] [place], [place] [id number] Outr Resulting Lab, Provider Social History Tobacco [...] 1.6 See Note g/dL 04/23/2024 17:19 EDT [facility] Comment: Reference range unavailable. Clinical correlation required. This Fluid Albumin assay was developed and its performance characteristics determined by [facility]. ??It has not been cleared or approved by the [place] Food and Drug Administration. Fluid PERITONEAL FLUID / Unknown 04/22/2024 16:30 EDT 04/23/2024 17:01 EDT Narrative [facility] - 04/23/2024 17:19 EDT Peritoneal Fluid us Provider Outr Resulting Lab GEN LAB UNIT COLLECT ORDERABLES Final Result Performing Organization Address City/State/[facility] Co de Phone Number [facility] [address] [place] [address] documented in this encounter Visit Diagnoses Not on filedocumented in this encounter Care Teams Bowling Floor Desk Clerk Relationship Specialty Start Date End Date Unknown, Provider, PCP - General 04/10/24 Nadeem Norton PA 04/10/24 documented as of this encounter
--- OUTSIDE RECORDS SUMMARY | 2024-07-24 13:03 | XMS_ITS | Encounter Summary ---
Author Organization [facility] Address [address] [place] [address] Care Team Providers Care Sales And Marketing Director Name Role Phone Nadeem Norton Primary Care Provider Encounter Details Date Type Department Care Team (Latest Contact Info) Description 12/18/2014 8:24 EDT - 12/18/2014 23:59 EDT Hospital Encounter [address] [address] Unknown, Provider, MD Discharge Disposition: Home or [...] Code Departure Means Destination Home or Self Long-Term documented in this encounter Plan of Treatment Not on file documented as of this encounter Visit Diagnoses Not on filedocumented in this encounter Care Teams Sales And Marketing Director Relationship Specialty Start Date End Date Nadeem Norton PA PCP - General 01/26/14 04/09/24 documented as of this encounter
--- OUTSIDE RECORDS SUMMARY | 2024-07-24 13:03 | XMS_ITS | Encounter Summary ---
Author Organization [facility] Address [address] [place] [address] Care Team Providers Care Regulatory Affairs Intern Name Role Phone Unknown, Provider Primary Care Provider Nadeem Neri Unavailable [phone] Encounter Details Date Type Department Care Team (Late st Contact Info) Description 04/23/2024 Lab Requisition [facility] Pathology & Laboratory Medicine - [facility] [address] [place] [address] Lena Diaz, DO [address] [place], [place] [id number] Encounter for palliative care; Other specified counseling; [...] Name Priority Date/Time Associated Diagnosis Comments NON GELATIN POWDER MIXER/FNA CYTOLOGY 04/22/2024 16:20 EDT Encounter for palliative [...] documented in this encounter Results * NON GELATIN POWDER MIXER/FNA CYTOLOGY (04/22/2024 16:20 EDT) Note to Patient The following pathology results have been interpreted by your pathologist and may be available to you before your health provider has had the opportunity to review them. Please allow time for your provider to receive these results and explore management options, if applicable. 04/23/2024 15:45 [facility] Final Diagnosis A. PERITONEAL FLUID, CYTOLOGIC EVALUATION: - Negative for malignant cells. - Scattered mesothelial cells and histiocytes present. 04/23/2024 15:45 [facility] Attestation By the signature below, the attending physician certifies that they have personally conducted a gross and/or microscopic examination of the described specimens and rendered or confirmed the above diagnosis. 04/23/2024 15:45 [facility] at 1545 Clinical History K70.30 04/23/2024 15:45 [facility] Gross Description A. 60cc's of opaque yellow fluid were received and processed by selective cellular enhancement technique. 04/23/2024 15:45 [facility] Performing Lab [facility] 04/23/2024 15:45 [facility] Scanned Images 04/23/2024 15:45 [facility] Fluid PERITONEAL FLUID / Unknown 04/22/2024 16:20 EDT 04/23/2024 6:48 EDT us Lena Diaz DO PATHOLOGY ORDERABLES Final Re sult [facility] [address] [place] [address] documented in this encounter Visit Diagnoses Diagnosis [...] (HCC-CMS) Sepsis, unspecified organism (HCC-CMS) Generalized edema Edema documented in this encounter Care Teams Regulatory Affairs Intern Relationship Specialty Start Date End Date Unknown, Provider, PCP - General 04/10/24 Nadeem Norton PA 04/10/24 documented as of this encounter
[2024-07-24 13:58] LABS: ALT 18 U/L (16-63); AST 21 U/L (15-37); Albumin 3.8 g/dL (3.4-5.0); Alkaline Phosphatase 308 U/L (46-116); Anion Gap 10.2 mmol/L (3-11); BUN 21 mg/dL (7-18); Bilirubin, Total 0.55 mg/dL (0.2-1.0); CO2 31.8 mmol/L (21.0-32.0); CREATININE 1.2 mg/dL (0.70-1.30); Calcium 9.6 mg/dL (8.5-10.1); Chloride 99 mmol/L (98-107); Estimated GFR 67.53 (mL/min/1.73m2); Glucose 104 mg/dL (74-106); Potassium 4.4 mmol/L (3.5-5.1); Sodium 141 mmol/L (136-145); Total Protein 9.2 g/dL (6.4-8.2); Vitamin D 25 Total 11.5 ng/mL (30-100)
[2024-07-24 16:00] LABS: Alkaline Phosphatase 312 U/L (46-116)
[2024-07-24 22:29] LABS: Parathyroid Hormone,Intact 73 pg/mL (19-88)
== END 2024-07-24 12:57 | disposition home or self-care (01) ==
LOC: LBO 13:01
PROVIDERS: PCP Nurse Practitioner; Visit Provider Nurse Practitioner
DX: M88.88 Osteitis deformans of other bones (principal); E83.52 Hypercalcemia
CPT/HCPCS: 36415; 80053; 82306; 83970; 84075; 84080

== ENCOUNTER → 2024-08-25 13:37 | Outpatient (BNVA) | payer MEDICARE, SELFPAY | PROVIDERS: PCP Nurse Practitioner; Visit Provider Registered Nurse | DX: I50.20 Unspecified systolic (congestive) heart failure (principal); I48.92 Unspecified atrial flutter | CPT/HCPCS: 99214 ==

== ENCOUNTER → 2024-09-25 12:58 | Outpatient (BNVA) | payer MEDICARE, SELFPAY | PROVIDERS: PCP Nurse Practitioner; Referring Provider Nurse Practitioner; Visit Provider Podiatrist | DX: L60.3 Nail dystrophy (principal); B35.1 Tinea unguium; L84 Corns and callosities; M72.2 Plantar fascial fibromatosis; R23.4 Changes in skin texture; Z79.01 Long term (current) use of anticoagulants; M79.671 Pain in right foot; M79.672 Pain in left foot; R09.89 Other specified symptoms and signs involving the circulatory and respiratory systems; R23.8 Other skin changes; L60.2 Onychogryphosis; L60.8 Other nail disorders | CPT/HCPCS: 11056; 99214 ==